=== PATIENT | female | born 1980 | race Caucasian/White ===

== ENCOUNTER 2019-06-17 21:15 | Inpatient (IN) | payer OTHER, MEDICAID ==
[~2019-06-17] VITALS: Ht 162.6 cm; Wt 72.8 kg
[~2019-06-17 21:15] MED LIST: PANT20TA3 PO; PARO40TA61 PO; SPIR25TA5 PO; ZOLP-413 PO
--- NOTE | 2019-06-17 21:34 | NUR ---
Patient transferred from [facility] with abnormal labs. Patient went to [facility] today c/o N/V, body aches x3 days and stated she has been attempting ETOH cessation on her own. In [facility] [facility], patient was hyponatremic, hypokalemic, hypomag. Meds given at that facility to address issue. No seizure activity noted at [facility] or here. 5 lead unremarkable.
[2019-06-17 22:05] LABS: BASOPHILS # (AUTO) 0.03 x10^3/uL (0-0.1); BASOPHILS % (AUTO) 0 % (0-1); EOSINOPHILS # (AUTO) 0.18 x10^3/uL (0-0.4); EOSINOPHILS % (AUTO) 2 % (1-7); LYMPHOCYTES # (AUTO) 2.19 x10^3/uL (1-3.4); LYMPHOCYTES % (AUTO) 18 % (22-44); MD NO; MEAN CORPUSCULAR HEMOGLOBIN 35.8 pg (27.0-34.8); MEAN CORPUSCULAR HGB CONC 34.1 g/dL (32.4-35.8); MEAN CORPUSCULAR VOLUME 105.1 fL (80-100); MEAN PLATELET VOLUME 7.6 fL (7.4-10.4); MONOCYTES # (AUTO) 0.73 x10^3/uL (0.2-0.8); MONOCYTES % (AUTO) 6 % (2-9); NEUTROPHILS # (AUTO) 9.11 x10^3/uL (1.8-6.8); NEUTROPHILS % (AUTO) 74 % (42-75); PLATELET COUNT 309 x10^3/uL (130-400); RED BLOOD COUNT 3.47 x10^6/uL (3.82-5.3); RED CELL DISTRIBUTION WIDTH 11.8 % (9.6-15.2)
[2019-06-17 22:16] LABS: ALBUMIN 1.8 g/dL (3.4-5.0); ANION GAP 11 mmol/L (5-15); CALCIUM 6.3 mg/dL (8.5-10.1); CHLORIDE 69 mmol/L (98-107); CREATININE 0.55 mg/dL (0.55-1.02)
--- NOTE | 2019-06-17 22:42 | NUR ---
Consulted with ERP about potential of IV replacement; awaiting orders.
[2019-06-17] MEDS ORDERED: MAGNESIUM SULFATE PMX 2GM/50ML 50 ML ONE (22:47)
--- NOTE | 2019-06-17 22:52 | NUR ---
Per hospitalist to non-admin 2 ml push of 1 g mag and 40 meq of k per erp orders and to admin iv replacement.
[2019-06-17] MEDS ORDERED: MAGNESIUM SULFATE 1 GM/2 ML IVPush ONE (23:00)
[2019-06-17] MEDS ORDERED: morphine SULFATE 10 MG/ML, 1ML IVPush PRN (23:00)
[2019-06-17] MEDS ORDERED: ONDANSETRON ODT 4 MG PO PRN (23:00)
[2019-06-17] MEDS ORDERED: POTASSIUM CHLORIDE 40 MEQ in SODIUM CHLORIDE 0.9% 500 ML IV ONE (23:00)
[2019-06-17] MEDS ORDERED: POLYETHYLENE GLYCOL 17 GM PACKET PO PRN (23:00)
[2019-06-17] MEDS ORDERED: PANTOPRAZOLE 40 MG IV IVPush SCH (23:00)
[2019-06-17] MEDS ORDERED: hydrALAzine 20 MG/ML, 1ML IVPush PRN (23:00)
[2019-06-17] MEDS ORDERED: MAGNESIUM SULFATE PMX 2GM/50ML 50 ML IV ONE (23:00)
[2019-06-17] MEDS ORDERED: POTASSIUM CHLORIDE 20 MEQ TAB.ER.PRT PO ONE (23:00)
[2019-06-17] MEDS ORDERED: CALCIUM GLUCONATE 4.6 MEQ in SODIUM CHLORIDE 0.9% 50 ML IV ONE (23:00)
[2019-06-17] MEDS ORDERED: BISACODYL 10 MG SUPP PR PRN (23:00)
[2019-06-17] MEDS ORDERED: DOCUSATE 100 MG CAPSULE PO PRN (23:00)
[2019-06-17] MEDS ORDERED: PROMETHAZINE 25 MG/ML, 1ML IM PRN (23:00)
--- NOTE | 2019-06-17 23:18 | NUR ---
[facility] [place] [facility] [phone]
--- NOTE | 2019-06-17 23:31 | NUR ---
Patient's called for an update. Patient stated RN can release info to Clement regarding her care. Advised him that patient had abnormal lab values and would be monitored overnight in CCU.
--- NOTE | 2019-06-17 23:35 | NUR ---
Pt states she is starting to feel some cramping in her lower back and "a funny feeling in her chest." Hospitalist notified.
[2019-06-17] MEDS: SODIUM CHLORIDE 0.9% 1,000 ML IV SCH (23:40)
--- NOTE | 2019-06-17 23:42 | NUR ---
Repeat ekg accomplished for physical s/s presentation. Given to hospitalist.
[2019-06-17 23:59] LABS: FREE T4 (FREE THYROXINE) 1.24 ng/dL (0.76-1.46)
[2019-06-18] MEDS ORDERED: LORazepam 0.5MG TABLET PO PRN
[2019-06-18] MEDS ORDERED: LORazepam 1MG TABLET PO PRN ×4
[2019-06-18] MEDS ORDERED: PANTOPRAZOLE 40 MG IV ONE
[2019-06-18] MEDS ORDERED: LORazepam 2 MG/ML, 1ML IV PRN ×5
--- NOTE | 2019-06-18 00:05 | NUR ---
PT MEDICATED PER MAR. PT DOES NOT AROUSE TO VERBAL STIMULI. HOWEVER NO SIGNS OF DISTRESS NOTES AT THIS TIME. AWAITING ADMIT BED IN CCU
[2019-06-18] MEDS ORDERED: [UNRECOGNIZED DRUG - OTHER] (00:17)
[2019-06-18] MEDS ORDERED: PROPANOLOL (00:17)
[2019-06-18] MEDS ORDERED: GABA300C10 PO (00:17)
[2019-06-18] MEDS ORDERED: ONDA4TAB7 PO (00:17)
[2019-06-18] MEDS ORDERED: VITAMIN D (00:17)
[2019-06-18] MEDS ORDERED: VITAMIN B (00:17)
--- NOTE | 2019-06-18 00:18 | NUR ---
PT AWOKEN. MED REC COMPLETED TO BEST OF PATIENTS KNOWLEDGE. PT MOSTL FOLLOWS DIRECTION HOWEVER NEEDS FREQUENT REMINDERS TO NOT BEND HER RIGHT ARM WHICH HAS BEEN CAUSING THE IV PUMP TO ALERT
[2019-06-18 00:33] LABS: INTERNATIONAL NORMALIZED RATIO 1.31 (0.93-1.1); PROTHROMBIN TIME 13.6 Seconds (9.6-11.5)
[2019-06-18 01:31] LABS: CHLORIDE 71 mmol/L (98-107)
[2019-06-18 01:32] LABS: ALANINE AMINOTRANSFERASE 50 U/L (12-78); ANION GAP 12 mmol/L (5-15); BILIRUBIN, DIRECT 0.8 mg/dL (0.1-0.2); CALCIUM 6.7 mg/dL (8.5-10.1); CREATININE 0.51 mg/dL (0.55-1.02)
[2019-06-18 01:34] LABS: ALKALINE PHOSPHATASE 152 U/L (45-117); BILIRUBIN,INDIRECT 0.5 mg/dL (0.0-2.0); BILIRUBIN,TOTAL 1.3 mg/dL (0.2-1.0); TOTAL PROTEIN 5.5 g/dL (6.4-8.2)
[2019-06-18] MEDS: NICOTINE 7 MG/24 HR PATCH.TD24 TD SCH ×2 (01:52→22:27)
[2019-06-18] MEDS: ONDANSETRON 2MG/ML, 2ML IVPush PRN (02:02)
[2019-06-18 03:39] LABS: OSMOLALITY,URINE 77 mOsm/kg (500-850)
[2019-06-18 03:41] LABS: SODIUM,URINE RANDOM 9 mmol/L
[2019-06-18 04:01] VITALS: BP 102/66
[2019-06-18 05:07] LABS: BASOPHILS # (AUTO) 0.08 x10^3/uL (0-0.1); BASOPHILS % (AUTO) 1 % (0-1); EOSINOPHILS # (AUTO) 0.37 x10^3/uL (0-0.4); EOSINOPHILS % (AUTO) 4 % (1-7); LYMPHOCYTES # (AUTO) 2.85 x10^3/uL (1-3.4); LYMPHOCYTES % (AUTO) 28 % (22-44); MD NO; MEAN CORPUSCULAR HEMOGLOBIN 35.7 pg (27.0-34.8); MEAN PLATELET VOLUME 7.5 fL (7.4-10.4); MONOCYTES % (AUTO) 8 % (2-9); NEUTROPHILS # (AUTO) 6.24 x10^3/uL (1.8-6.8); NEUTROPHILS % (AUTO) 60 % (42-75); PLATELET COUNT 301 x10^3/uL (130-400); RED BLOOD COUNT 3.69 x10^6/uL (3.82-5.3)
[2019-06-18 05:20] LABS: ALBUMIN 2.2 g/dL (3.4-5.0); CALCIUM 6.7 mg/dL (8.5-10.1); CHLORIDE 71 mmol/L (98-107)
[2019-06-18 05:24] LABS: ALANINE AMINOTRANSFERASE 56 U/L (12-78); ALKALINE PHOSPHATASE 160 U/L (45-117); BILIRUBIN,TOTAL 1.3 mg/dL (0.2-1.0); CHOL/HDL RATIO 14.6; CHOLESTEROL, TOTAL 205 mg/dL (140-239); CREATININE 0.48 mg/dL (0.55-1.02); HDL CHOL % 7 % (28-40); HDL CHOLESTEROL (DIRECT) 14 mg/dL (40-60); TOTAL PROTEIN 5.3 g/dL (6.4-8.2); TRIGLYCERIDES 434 mg/dL (50-200)
[2019-06-18 05:29] LABS: ANION GAP 13 mmol/L (5-15)
[2019-06-18] MEDS: POTASSIUM CHLORIDE 20 MEQ, MAGNESIUM SULFATE 1 GM, THIAMINE 200 MG, FOLIC ACID 1 MG, MV... IV SCH (07:24)
[2019-06-18] MEDS: SODIUM CHLORIDE 0.9% 1,000 ML IV SCH ×2 (08:47→18:47)
[2019-06-18] MEDS ORDERED: THIAMINE 100MG TABLET PO SCH (09:00)
[2019-06-18] MEDS ORDERED: MULTIVITAMIN 1 TABLET PO SCH (09:00)
[2019-06-18] MEDS ORDERED: CHLORDIAZEPOXIDE 25 MG CAPSULE PO SCH (09:00)
[2019-06-18] MEDS ORDERED: POTASSIUM CHLORIDE 10% 40 MEQ/30 ML UDC PO SCH (09:00)
[2019-06-18] MEDS ORDERED: FOLIC ACID 1 MG TABLET PO SCH (09:00)
[2019-06-18 09:48] LABS: ANION GAP 13 mmol/L (5-15); CALCIUM 6.4 mg/dL (8.5-10.1); CHLORIDE 73 mmol/L (98-107); CREATININE 0.52 mg/dL (0.55-1.02)
[2019-06-18] MEDS ORDERED: MAGNESIUM SULFATE PMX 4GM/100M 100 ML IV ONE (10:30)
[2019-06-18] MEDS ORDERED: CALCIUM CHLORIDE 13.6 MEQ in SODIUM CHLORIDE 0.9% 100 ML IV ONE (10:30)
[2019-06-18] MEDS: CHLORDIAZEPOXIDE 10 MG CAPSULE PO SCH ×3 (11:51→22:25)
[2019-06-18] MEDS: POTASSIUM CHLORIDE 10% 40 MEQ/30 ML UDC PO SCH ×3 (11:52→22:25)
[2019-06-18] MEDS: CHLORDIAZEPOXIDE 5 MG CAPSULE PO SCH ×3 (11:52→22:25)
[2019-06-18] MEDS: SODIUM PHOSPHATE 40 MMOL in SODIUM CHLORIDE 0.9% 500 ML IV ONE ×2 (11:52→13:54)
[2019-06-18 13:18] LABS: ANION GAP 12 mmol/L (5-15); CALCIUM 6.5 mg/dL (8.5-10.1); CHLORIDE 77 mmol/L (98-107); CREATININE 0.53 mg/dL (0.55-1.02)
[2019-06-18] MEDS ORDERED: POTASSIUM CHLORIDE 20 MEQ TAB.ER.PRT ONE ×2 (17:01→22:24)
[2019-06-18] MEDS: NS + 20MEQ KCL 1,000 ML IV SCH (17:03)
[2019-06-18] MEDS: PANTOPRAZOLE 20MG TABLET PO SCH (17:06)
[2019-06-18 17:38] LABS: ANION GAP 10 mmol/L (5-15); CALCIUM 7.5 mg/dL (8.5-10.1); CHLORIDE 78 mmol/L (98-107)
[2019-06-18 17:39] LABS: CREATININE 0.45 mg/dL (0.55-1.02)
[2019-06-18] MEDS ORDERED: POTASSIUM CHLORIDE 40 MEQ in SODIUM CHLORIDE 0.9% 500 ML IV ONE (19:30)
[2019-06-18 22:33] LABS: ANION GAP 9 mmol/L (5-15); CALCIUM 6.8 mg/dL (8.5-10.1); CHLORIDE 83 mmol/L (98-107); CREATININE 0.52 mg/dL (0.55-1.02)
[2019-06-19] MEDS: OXYcodone IR 5MG TABLET PO PRN (00:33)
[2019-06-19] MEDS: NS + 20MEQ KCL 1,000 ML IV SCH (00:34)
[2019-06-19 02:31] LABS: CALCIUM 6.6 mg/dL (8.5-10.1); CHLORIDE 85 mmol/L (98-107); CREATININE 0.48 mg/dL (0.55-1.02)
[2019-06-19 02:37] LABS: ANION GAP 13 mmol/L (5-15)
[2019-06-19] MEDS: POTASSIUM CHLORIDE 10% 40 MEQ/30 ML UDC PO SCH (05:28)
[2019-06-19] MEDS: PANTOPRAZOLE 20MG TABLET PO SCH ×2 (05:28→17:38)
[2019-06-19 07:56] LABS: ALANINE AMINOTRANSFERASE 50 U/L (12-78); ALBUMIN 1.9 g/dL (3.4-5.0); CALCIUM 6.6 mg/dL (8.5-10.1); CHLORIDE 89 mmol/L (98-107); CREATININE 0.51 mg/dL (0.55-1.02)
[2019-06-19 07:58] LABS: ALKALINE PHOSPHATASE 140 U/L (45-117); BILIRUBIN,TOTAL 1.2 mg/dL (0.2-1.0)
[2019-06-19 08:05] LABS: ANION GAP 11 mmol/L (5-15)
[2019-06-19] MEDS: CHLORDIAZEPOXIDE 10 MG CAPSULE PO SCH ×3 (08:19→21:16)
[2019-06-19] MEDS: CHLORDIAZEPOXIDE 5 MG CAPSULE PO SCH ×3 (08:19→21:16)
[2019-06-19] MEDS: POTASSIUM CHLORIDE 20 MEQ, MAGNESIUM SULFATE 1 GM, THIAMINE 200 MG, FOLIC ACID 1 MG, MV... IV SCH (09:17)
[2019-06-19] MEDS: SODIUM CHLORIDE 0.9% 1,000 ML IV SCH ×2 (09:30→20:52)
[2019-06-19] MEDS ORDERED: SODIUM PHOSPHATE 40 MMOL in SODIUM CHLORIDE 0.9% 500 ML IV ONE (09:30)
[2019-06-19] MEDS ORDERED: CALCIUM CHLORIDE 13.6 MEQ in SODIUM CHLORIDE 0.9% 100 ML IV ONE (09:30)
[2019-06-19] MEDS: PAROXETINE 20 MG TABLET PO SCH (11:40)
[2019-06-19] MEDS: GABAPENTIN 100 MG CAPSULE PO SCH ×2 (11:40→21:16)
[2019-06-19 13:12] LABS: ANION GAP 12 mmol/L (5-15); CALCIUM 7.6 mg/dL (8.5-10.1); CHLORIDE 88 mmol/L (98-107); CREATININE 0.67 mg/dL (0.55-1.02)
[2019-06-19] MEDS ORDERED: LOPERAMIDE 2 MG CAPSULE PO PRN (14:00)
[2019-06-19] MEDS: ENOXAPARIN 40 MG/0.4 ML SQ SCH (15:15)
[2019-06-19] MEDS: CALCIUM CARBONATE 500 MG TAB.CHEW PO PRN (15:15)
[2019-06-19 21:06] LABS: ANION GAP 12 mmol/L (5-15); CALCIUM 7.3 mg/dL (8.5-10.1); CHLORIDE 91 mmol/L (98-107); CREATININE 0.61 mg/dL (0.55-1.02)
[2019-06-19] MEDS: NICOTINE 7 MG/24 HR PATCH.TD24 TD SCH (23:20)
[2019-06-20 05:00] LABS: ANION GAP 10 mmol/L (5-15); CALCIUM 7.2 mg/dL (8.5-10.1); CHLORIDE 94 mmol/L (98-107); CREATININE 0.51 mg/dL (0.55-1.02)
[2019-06-20] MEDS: PANTOPRAZOLE 20MG TABLET PO SCH ×2 (06:13→17:28)
[2019-06-20] MEDS ORDERED: MAGNESIUM SULFATE PMX 2GM/50ML 50 ML IV ONE (07:30)
[2019-06-20] MEDS ORDERED: SODIUM CHLORIDE 3% 500 ML IV PRN ×2 (07:30→09:00)
[2019-06-20] MEDS: CHLORDIAZEPOXIDE 5 MG CAPSULE PO SCH ×3 (08:32→22:18)
[2019-06-20] MEDS: POTASSIUM CHLORIDE 20 MEQ TAB.ER.PRT PO SCH ×2 (08:33→17:28)
[2019-06-20] MEDS: PAROXETINE 20 MG TABLET PO SCH (08:33)
[2019-06-20] MEDS: GABAPENTIN 100 MG CAPSULE PO SCH ×2 (08:33→19:59)
[2019-06-20] MEDS: CHLORDIAZEPOXIDE 10 MG CAPSULE PO SCH ×3 (08:42→22:18)
[2019-06-20] MEDS: POTASSIUM CHLORIDE 20 MEQ, MAGNESIUM SULFATE 1 GM, THIAMINE 200 MG, FOLIC ACID 1 MG, MV... IV SCH (11:28)
[2019-06-20] MEDS: ENOXAPARIN 40 MG/0.4 ML SQ SCH (13:32)
[2019-06-20] MEDS: OXYcodone IR 5MG TABLET PO PRN (17:28)
[2019-06-20 18:27] VITALS: BP 112/72
[2019-06-20] MEDS: SODIUM CHLORIDE 3% 500 ML IV PRN (22:23)
[2019-06-20] MEDS: NICOTINE 7 MG/24 HR PATCH.TD24 TD SCH (22:24)
[2019-06-21 02:16] VITALS: BP 102/67
[2019-06-21 03:34] LABS: ANION GAP 13 mmol/L (5-15); CALCIUM 6.3 mg/dL (8.5-10.1); CHLORIDE 98 mmol/L (98-107); CREATININE 0.76 mg/dL (0.55-1.02)
[2019-06-21] MEDS: PANTOPRAZOLE 20MG TABLET PO SCH ×2 (05:52→16:34)
[2019-06-21 06:08] VITALS: BP 99/67
[2019-06-21] MEDS: SODIUM CHLORIDE 3% 500 ML IV PRN ×2 (07:17→17:21)
[2019-06-21] MEDS ORDERED: CALCIUM CHLORIDE 13.6 MEQ in SODIUM CHLORIDE 0.9% 100 ML IV ONE (07:30)
[2019-06-21] MEDS: GABAPENTIN 100 MG CAPSULE PO SCH ×2 (07:59→21:29)
[2019-06-21] MEDS: PAROXETINE 20 MG TABLET PO SCH (07:59)
[2019-06-21 08:35] LABS: MD YES; MEAN CORPUSCULAR HEMOGLOBIN 35.5 pg (27.0-34.8); MEAN CORPUSCULAR HGB CONC 33.1 g/dL (32.4-35.8); MEAN CORPUSCULAR VOLUME 107.2 fL (80-100); MEAN PLATELET VOLUME 8.2 fL (7.4-10.4); PLATELET COUNT 314 x10^3/uL (130-400); RED BLOOD COUNT 3.21 x10^6/uL (3.82-5.3); RED CELL DISTRIBUTION WIDTH 12.8 % (9.6-15.2)
[2019-06-21] MEDS ORDERED: CHLORDIAZEPOXIDE 5 MG CAPSULE PO SCH (09:00)
[2019-06-21 09:02] LABS: <PLATELET ESTIMATE> ADEQUATE; <PLT MORPHOLOGY> NORMAL PLT MORPH; ANISOCYTOSIS 1+; EOS#(MANUAL) 0.97 x10^3/uL (0.0-0.4); EOS% (MANUAL) 6 % (1-7); LYMPH#(MANUAL) 3.89 x10^3/uL (1-3.4); LYMPHS% (MANUAL) 24 % (22-44); MONOS#(MANUAL) 0.81 x10^3/uL (0.3-2.7); MONOS% (MANUAL) 5 % (2-9); SEG#(MANUAL) 10.53 x10^3/uL (1.8-6.8); SEGS% (MANUAL) 65 % (42-75)
[2019-06-21] MEDS: POTASSIUM CHLORIDE 20 MEQ, MAGNESIUM SULFATE 1 GM, THIAMINE 200 MG, FOLIC ACID 1 MG, MV... IV SCH (09:23)
[2019-06-21] MEDS ORDERED: MAGNESIUM SULFATE PMX 4GM/100M 100 ML IVPB ONE (11:00)
[2019-06-21] MEDS ORDERED: SODIUM PHOSPHATE 20 MMOL in SODIUM CHLORIDE 0.9% 500 ML IV ONE (11:00)
[2019-06-21] MEDS: OXYcodone IR 5MG TABLET PO PRN (12:13)
[2019-06-21 13:46] VITALS: BP 107/64
[2019-06-21] MEDS: ENOXAPARIN 40 MG/0.4 ML SQ SCH (16:35)
[2019-06-21 19:59] VITALS: BP 104/80
[2019-06-21] MEDS: NICOTINE 7 MG/24 HR PATCH.TD24 TD SCH (23:15)
[2019-06-22 00:04] LABS: CULTURE INDICATED? YES; MICROSCOPIC INDICATED
[2019-06-22 01:56] VITALS: BP 108/71
[2019-06-22] MEDS: SODIUM CHLORIDE 3% 500 ML IV PRN (03:12)
[2019-06-22 04:58] LABS: MEAN CORPUSCULAR HEMOGLOBIN 36.2 pg (27.0-34.8); MEAN CORPUSCULAR HGB CONC 33.5 g/dL (32.4-35.8); MEAN CORPUSCULAR VOLUME 108.1 fL (80-100); MEAN PLATELET VOLUME 7.7 fL (7.4-10.4); PLATELET COUNT 313 x10^3/uL (130-400); RED CELL DISTRIBUTION WIDTH 13.1 % (9.6-15.2)
[2019-06-22 05:10] LABS: ANION GAP 7 mmol/L (5-15); CALCIUM 6.5 mg/dL (8.5-10.1); CHLORIDE 106 mmol/L (98-107); CREATININE 0.39 mg/dL (0.55-1.02)
[2019-06-22 05:47] LABS: BASOPHILS # (AUTO) 0.13 x10^3/uL (0-0.1); BASOPHILS % (AUTO) 1 % (0-1); EOSINOPHILS # (AUTO) 0.56 x10^3/uL (0-0.4); EOSINOPHILS % (AUTO) 4 % (1-7); LYMPHOCYTES # (AUTO) 2.65 x10^3/uL (1-3.4); LYMPHOCYTES % (AUTO) 19 % (22-44); MD SCAN; MONOCYTES # (AUTO) 0.71 x10^3/uL (0.2-0.8); MONOCYTES % (AUTO) 5 % (2-9); NEUTROPHILS # (AUTO) 10.16 x10^3/uL (1.8-6.8); NEUTROPHILS % (AUTO) 72 % (42-75)
[2019-06-22] MEDS: PANTOPRAZOLE 20MG TABLET PO SCH ×2 (05:51→17:13)
[2019-06-22 06:53] VITALS: BP 107/72
[2019-06-22] MEDS ORDERED: CEFTRIAXONE PMX 1GM/50ML 50 ML IV SCH (07:30)
[2019-06-22] MEDS: PAROXETINE 20 MG TABLET PO SCH (08:42)
[2019-06-22] MEDS: GABAPENTIN 100 MG CAPSULE PO SCH ×2 (08:42→22:51)
[2019-06-22] MEDS: OXYcodone IR 5MG TABLET PO PRN ×4 (08:46→21:11)
[2019-06-22] MEDS ORDERED: SODIUM CHLORIDE 3% 500 ML IV PRN ×2 (09:00→19:00)
[2019-06-22] MEDS: POTASSIUM CHLORIDE 20 MEQ, MAGNESIUM SULFATE 1 GM, THIAMINE 200 MG, FOLIC ACID 1 MG, MV... IV SCH (09:48)
[2019-06-22 13:14] VITALS: BP 137/81
[2019-06-22] MEDS: ENOXAPARIN 40 MG/0.4 ML SQ SCH (17:22)
[2019-06-22 19:06] VITALS: BP 120/73
[2019-06-22] MEDS: ONDANSETRON 2MG/ML, 2ML IVPush PRN (19:14)
[2019-06-22] MEDS ORDERED: ALBUTEROL/IPRATROPIUM 2.5MG/0.5MG, 3 ML ONE (21:02)
[2019-06-22] MEDS ORDERED: FUROSEMIDE 40 MG/4 ML ONE (21:46)
[2019-06-22] MEDS ORDERED: FUROSEMIDE 40 MG/4 ML IV ONE (22:00)
[2019-06-22] MEDS: LORazepam 2 MG/ML, 1ML IVPush PRN (22:51)
[2019-06-22] MEDS: NICOTINE 7 MG/24 HR PATCH.TD24 TD SCH (23:25)
[2019-06-23] MEDS: LORazepam 2 MG/ML, 1ML IVPush PRN (02:07)
[2019-06-23 05:05] LABS: ANION GAP 9 mmol/L (5-15); CALCIUM 6.5 mg/dL (8.5-10.1); CHLORIDE 105 mmol/L (98-107)
[2019-06-23 05:06] LABS: CREATININE 0.49 mg/dL (0.55-1.02)
[2019-06-23 05:19] LABS: MEAN CORPUSCULAR HEMOGLOBIN 36.7 pg (27.0-34.8); MEAN CORPUSCULAR HGB CONC 33.5 g/dL (32.4-35.8); MEAN CORPUSCULAR VOLUME 109.7 fL (80-100); MEAN PLATELET VOLUME 7.6 fL (7.4-10.4); PLATELET COUNT 322 x10^3/uL (130-400); RED BLOOD COUNT 2.89 x10^6/uL (3.82-5.3); RED CELL DISTRIBUTION WIDTH 13.7 % (9.6-15.2)
[2019-06-23] MEDS: PANTOPRAZOLE 20MG TABLET PO SCH ×2 (05:42→16:01)
[2019-06-23 05:52] LABS: BASOPHILS # (AUTO) 0.03 x10^3/uL (0-0.1); BASOPHILS % (AUTO) 0 % (0-1); EOSINOPHILS # (AUTO) 0.13 x10^3/uL (0-0.4); EOSINOPHILS % (AUTO) 1 % (1-7); LYMPHOCYTES # (AUTO) 1.62 x10^3/uL (1-3.4); LYMPHOCYTES % (AUTO) 9 % (22-44); MD SCAN; MONOCYTES # (AUTO) 0.31 x10^3/uL (0.2-0.8); MONOCYTES % (AUTO) 2 % (2-9); NEUTROPHILS # (AUTO) 15.48 x10^3/uL (1.8-6.8); NEUTROPHILS % (AUTO) 88 % (42-75)
[2019-06-23] MEDS ORDERED: VANCOMYCIN PER PHARMACY MC PRN (07:00)
[2019-06-23] MEDS: PAROXETINE 20 MG TABLET PO SCH (07:39)
[2019-06-23] MEDS: GABAPENTIN 100 MG CAPSULE PO SCH ×2 (07:39→21:13)
[2019-06-23] MEDS: MEROPENEM 1 GM in SODIUM CHLORIDE 0.9% 100 ML IV SCH ×3 (07:40→23:15)
[2019-06-23] MEDS ORDERED: VANCOMYCIN 2,000 MG in SODIUM CHLORIDE 0.9% 500 ML IV ONE (08:00)
[2019-06-23] MEDS: FUROSEMIDE 20 MG/2 ML IV SCH ×2 (08:56→21:13)
[2019-06-23] MEDS: OXYcodone IR 5MG TABLET PO PRN (12:49)
[2019-06-23] MEDS ORDERED: FUROSEMIDE 40 MG/4 ML IV ONE (14:30)
[2019-06-23 15:41] LABS: TROPONIN I 0.063 ng/mL (0.000-0.045)
[2019-06-23] MEDS ORDERED: SODIUM BICARBONATE 1 MEQ/ML, 50ML VIAL IVPush STA (15:49)
[2019-06-23] MEDS: ENOXAPARIN 40 MG/0.4 ML SQ SCH (20:02)
[2019-06-23] MEDS: VANCOMYCIN 2,300 MG in SODIUM CHLORIDE 0.9% 500 ML IV SCH (21:13)
[2019-06-23] MEDS: NICOTINE 7 MG/24 HR PATCH.TD24 TD SCH (23:15)
[2019-06-24 04:38] LABS: MEAN CORPUSCULAR HGB CONC 33.5 g/dL (32.4-35.8); MEAN CORPUSCULAR VOLUME 107.3 fL (80-100); MEAN PLATELET VOLUME 7.2 fL (7.4-10.4); PLATELET COUNT 334 x10^3/uL (130-400); RED BLOOD COUNT 2.83 x10^6/uL (3.82-5.3); RED CELL DISTRIBUTION WIDTH 13.9 % (9.6-15.2)
[2019-06-24 04:42] LABS: ANION GAP 7 mmol/L (5-15); CALCIUM 7.2 mg/dL (8.5-10.1); CHLORIDE 104 mmol/L (98-107)
[2019-06-24 05:38] LABS: MD YES
[2019-06-24 05:45] LABS: ANISOCYTOSIS 1+; BAND#(MANUAL) 0.65 x10^3/uL; BANDS%(MANUAL) 5 % (0-7); LYMPHS% (MANUAL) 10 % (22-44); MONOS#(MANUAL) 0.65 x10^3/uL (0.3-2.7); MONOS% (MANUAL) 5 % (2-9); NRBC % (MANUAL) 1 % (0-1); POLYCHROMASIA 1+; SEGS% (MANUAL) 80 % (42-75)
[2019-06-24 05:46] LABS: <PLATELET ESTIMATE> ADEQUATE; <PLT MORPHOLOGY> NORMAL PLT MORPH
[2019-06-24] MEDS: PANTOPRAZOLE 20MG TABLET PO SCH ×2 (05:58→16:00)
[2019-06-24] MEDS: MEROPENEM 1 GM in SODIUM CHLORIDE 0.9% 100 ML IV SCH ×3 (06:30→23:23)
[2019-06-24] MEDS: POTASSIUM CHLORIDE 20 MEQ TAB.ER.PRT PO SCH ×2 (07:51→16:14)
[2019-06-24] MEDS: FUROSEMIDE 20 MG/2 ML IV SCH ×2 (07:52→16:45)
[2019-06-24] MEDS: GABAPENTIN 100 MG CAPSULE PO SCH ×2 (07:52→22:09)
[2019-06-24] MEDS: PAROXETINE 20 MG TABLET PO SCH (07:52)
[2019-06-24] MEDS ORDERED: PROPOFOL 100 ML IV ONE (08:00)
[2019-06-24] MEDS ORDERED: ROCURONIUM 10 MG/ML,10ML ONE (08:00)
[2019-06-24] MEDS ORDERED: ETOMIDATE 20 MG/10 ML ONE (08:00)
[2019-06-24] MEDS: ALBUMIN HUMAN 25% 100 ML IV SCH ×2 (09:29→16:45)
[2019-06-24] MEDS ORDERED: NOREPINEPHRINE 1 MG/ML, 4ML ONE (12:04)
[2019-06-24] MEDS ORDERED: FENTANYL PF 100 MCG/2ML ONE (12:09)
[2019-06-24] MEDS ORDERED: GLUCAGON 1 MG IM PRN (12:30)
[2019-06-24] MEDS ORDERED: DEXTROSE 4 GM TAB.CHEW PO PRN (12:30)
[2019-06-24] MEDS ORDERED: LACTULOSE 20 GM/30 ML UDC NG PRN (12:30)
[2019-06-24] MEDS ORDERED: SODIUM CHLORIDE 0.9%, 500ML IV ONE (12:30)
[2019-06-24] MEDS ORDERED: BISACODYL 10 MG SUPP PR PRN (12:30)
[2019-06-24] MEDS ORDERED: PHARMACY MAY ADJ FOR RENAL FX MC SCH (12:30)
[2019-06-24] MEDS ORDERED: NOREPINEPHRINE 4 MG in SODIUM CHLORIDE 0.9% 246 ML IV PRN (12:30)
[2019-06-24] MEDS ORDERED: SENNA/DOCUSATE TABLET NG PRN (12:30)
[2019-06-24] MEDS ORDERED: DEXTROSE 50%, 50ML SYRINGE IVPush PRN (12:30)
[2019-06-24] MEDS: PROPOFOL 100 ML IV PRN ×4 (12:46→22:12)
[2019-06-24] MEDS ORDERED: FENTANYL PF 100 MCG/2ML IVPush ONE (13:00)
[2019-06-24 13:18] LABS: INTERNATIONAL NORMALIZED RATIO 1.09 (0.93-1.1); PROTHROMBIN TIME 11.4 Seconds (9.6-11.5)
[2019-06-24 13:22] LABS: TROPONIN I < 0.015 ng/mL (0.000-0.045)
[2019-06-24] MEDS: ALBUTEROL/IPRATROPIUM 2.5MG/0.5MG, 3 ML INLINE SCH ×3 (14:10→22:25)
[2019-06-24] MEDS: FENTANYL PF 100 MCG/2ML IVPush PRN ×3 (15:01→22:16)
[2019-06-24] MEDS: VANCOMYCIN 2,300 MG in SODIUM CHLORIDE 0.9% 500 ML IV SCH (16:15)
[2019-06-24] MEDS: INSULIN LISPRO 100 UNITS/ML, PEN SQ-INSULIN SCH ×2 (16:20→22:10)
[2019-06-24] MEDS: ENOXAPARIN 40 MG/0.4 ML SQ SCH (20:32)
[2019-06-24] MEDS ORDERED: POTASSIUM CHLORIDE 10% 40 MEQ/30 ML UDC PO SCH (21:00)
[2019-06-24] MEDS ORDERED: POTASSIUM CHLORIDE 20 MEQ PACKET PO SCH (21:00)
[2019-06-24] MEDS: MIDAZOLAM 1 MG/ML, 2ML IVPush PRN (21:30)
[2019-06-24 21:53] LABS: TROPONIN I < 0.015 ng/mL (0.000-0.045)
[2019-06-24] MEDS: NICOTINE 7 MG/24 HR PATCH.TD24 TD SCH (22:10)
[2019-06-24] MEDS: SODIUM CHLORIDE FLUSH 10ML SYR IVF SCH (22:10)
[2019-06-25] MEDS: PROPOFOL 100 ML IV PRN ×6 (01:32→19:55)
[2019-06-25] MEDS: ALBUMIN HUMAN 25% 100 ML IV SCH ×3 (01:32→17:23)
[2019-06-25] MEDS: FUROSEMIDE 20 MG/2 ML IV SCH ×3 (01:33→18:19)
[2019-06-25] MEDS: ALBUTEROL/IPRATROPIUM 2.5MG/0.5MG, 3 ML INLINE SCH ×6 (02:37→22:29)
[2019-06-25 04:51] LABS: ALBUMIN 2.5 g/dL (3.4-5.0); ANION GAP 10 mmol/L (5-15); CALCIUM 7.4 mg/dL (8.5-10.1); CHLORIDE 104 mmol/L (98-107)
[2019-06-25 04:55] LABS: ALANINE AMINOTRANSFERASE 27 U/L (12-78); ALKALINE PHOSPHATASE 130 U/L (45-117); CREATININE 0.37 mg/dL (0.55-1.02); TOTAL PROTEIN 5.4 g/dL (6.4-8.2)
[2019-06-25] MEDS ORDERED: MAGNESIUM SULFATE PMX 2GM/50ML 50 ML IV ONE ×2 (05:30→09:00)
[2019-06-25 05:46] LABS: BASOPHILS # (AUTO) 0.05 x10^3/uL (0-0.1); BASOPHILS % (AUTO) 1 % (0-1); EOSINOPHILS # (AUTO) 0.49 x10^3/uL (0-0.4); EOSINOPHILS % (AUTO) 6 % (1-7); LYMPHOCYTES # (AUTO) 2.05 x10^3/uL (1-3.4); LYMPHOCYTES % (AUTO) 25 % (22-44); MD SCAN; MEAN CORPUSCULAR HEMOGLOBIN 36.1 pg (27.0-34.8); MEAN CORPUSCULAR HGB CONC 33.3 g/dL (32.4-35.8); MEAN CORPUSCULAR VOLUME 108.3 fL (80-100); MEAN PLATELET VOLUME 7.2 fL (7.4-10.4); MONOCYTES # (AUTO) 0.31 x10^3/uL (0.2-0.8); MONOCYTES % (AUTO) 4 % (2-9); NEUTROPHILS # (AUTO) 5.23 x10^3/uL (1.8-6.8); NEUTROPHILS % (AUTO) 64 % (42-75); PLATELET COUNT 309 x10^3/uL (130-400); RED BLOOD COUNT 2.35 x10^6/uL (3.82-5.3); RED CELL DISTRIBUTION WIDTH 14.5 % (9.6-15.2)
[2019-06-25] MEDS: PANTOPRAZOLE 20MG TABLET PO SCH ×2 (05:49→15:18)
[2019-06-25] MEDS: MEROPENEM 1 GM in SODIUM CHLORIDE 0.9% 100 ML IV SCH ×2 (06:39→15:18)
[2019-06-25] MEDS: GABAPENTIN 100 MG CAPSULE PO SCH ×2 (08:51→21:00)
[2019-06-25] MEDS: PAROXETINE 20 MG TABLET PO SCH (08:51)
[2019-06-25] MEDS: SODIUM CHLORIDE FLUSH 10ML SYR IVF SCH ×2 (08:55→21:00)
[2019-06-25] MEDS: QUETIAPINE 25MG TABLET PO SCH ×2 (08:59→17:27)
[2019-06-25] MEDS: POTASSIUM CHLORIDE 20 MEQ PACKET PO SCH ×2 (09:11→21:00)
[2019-06-25] MEDS: INSULIN LISPRO 100 UNITS/ML, PEN SQ-INSULIN SCH ×3 (10:00→22:00)
[2019-06-25] MEDS: VANCOMYCIN 2,000 MG in SODIUM CHLORIDE 0.9% 500 ML IV SCH ×2 (10:32→22:15)
[2019-06-25] MEDS ORDERED: SODIUM PHOSPHATE 40 MMOL in SODIUM CHLORIDE 0.9% 500 ML IV ONE (11:00)
[2019-06-25] MEDS: ENOXAPARIN 40 MG/0.4 ML SQ SCH (20:59)
[2019-06-26] MEDS: ALBUMIN HUMAN 25% 100 ML IV SCH ×3 (00:46→16:23)
[2019-06-26] MEDS: NICOTINE 7 MG/24 HR PATCH.TD24 TD SCH (00:46)
[2019-06-26] MEDS: MEROPENEM 1 GM in SODIUM CHLORIDE 0.9% 100 ML IV SCH ×3 (00:46→16:28)
[2019-06-26] MEDS: PROPOFOL 100 ML IV PRN ×3 (00:47→17:56)
[2019-06-26] MEDS: QUETIAPINE 25MG TABLET PO SCH ×3 (00:47→16:28)
[2019-06-26] MEDS: ALBUTEROL/IPRATROPIUM 2.5MG/0.5MG, 3 ML INLINE SCH ×6 (02:20→22:23)
[2019-06-26] MEDS: FUROSEMIDE 20 MG/2 ML IV SCH ×3 (03:09→17:20)
[2019-06-26] MEDS: INSULIN LISPRO 100 UNITS/ML, PEN SQ-INSULIN SCH ×4 (04:00→22:00)
[2019-06-26 04:24] LABS: MEAN CORPUSCULAR HEMOGLOBIN 35.8 pg (27.0-34.8); MEAN CORPUSCULAR VOLUME 108.5 fL (80-100); MEAN PLATELET VOLUME 6.9 fL (7.4-10.4); PLATELET COUNT 340 x10^3/uL (130-400); RED BLOOD COUNT 2.44 x10^6/uL (3.82-5.3); RED CELL DISTRIBUTION WIDTH 14.4 % (9.6-15.2)
[2019-06-26 04:29] LABS: ANION GAP 6 mmol/L (5-15); CHLORIDE 107 mmol/L (98-107); CREATININE 0.46 mg/dL (0.55-1.02)
[2019-06-26 04:58] LABS: MD YES
[2019-06-26 05:01] LABS: BASOS#(MANUAL) 0.18 x10^3/uL (0-0.1); BASOS% (MANUAL) 2 % (0-1); EOS#(MANUAL) 0.62 x10^3/uL (0.0-0.4); EOS% (MANUAL) 7 % (1-7); LYMPH#(MANUAL) 2.82 x10^3/uL (1-3.4); LYMPHS% (MANUAL) 32 % (22-44); MONOS#(MANUAL) 0.18 x10^3/uL (0.3-2.7); MONOS% (MANUAL) 2 % (2-9); NRBC % (MANUAL) 2 % (0-1); SEG#(MANUAL) 5.02 x10^3/uL (1.8-6.8); SEGS% (MANUAL) 57 % (42-75)
[2019-06-26 05:02] LABS: <PLATELET ESTIMATE> ADEQUATE; ANISOCYTOSIS 1+; POLYCHROMASIA 1+; SMALL PLATELETS 1+
[2019-06-26] MEDS: PANTOPRAZOLE 20MG TABLET PO SCH ×2 (06:26→16:28)
[2019-06-26] MEDS: SODIUM CHLORIDE FLUSH 10ML SYR IVF SCH ×2 (08:49→20:49)
[2019-06-26] MEDS: PAROXETINE 20 MG TABLET PO SCH (08:52)
[2019-06-26] MEDS: GABAPENTIN 100 MG CAPSULE PO SCH ×2 (08:52→20:49)
[2019-06-26] MEDS: ENOXAPARIN 40 MG/0.4 ML SQ SCH (20:49)
[2019-06-27] MEDS: MEROPENEM 1 GM in SODIUM CHLORIDE 0.9% 100 ML IV SCH ×3 (00:41→16:07)
[2019-06-27] MEDS: ALBUMIN HUMAN 25% 100 ML IV SCH ×4 (00:41→16:47)
[2019-06-27] MEDS: NICOTINE 7 MG/24 HR PATCH.TD24 TD SCH (00:42)
[2019-06-27] MEDS: QUETIAPINE 25MG TABLET PO SCH ×3 (00:42→15:59)
[2019-06-27] MEDS: PROPOFOL 100 ML IV PRN ×5 (00:44→22:25)
[2019-06-27] MEDS: ALBUTEROL/IPRATROPIUM 2.5MG/0.5MG, 3 ML INLINE SCH ×6 (03:00→22:22)
[2019-06-27] MEDS: FUROSEMIDE 20 MG/2 ML IV SCH (03:45)
[2019-06-27] MEDS: INSULIN LISPRO 100 UNITS/ML, PEN SQ-INSULIN SCH ×4 (04:00→22:49)
[2019-06-27 04:29] LABS: MEAN CORPUSCULAR HEMOGLOBIN 36.3 pg (27.0-34.8); MEAN CORPUSCULAR HGB CONC 32.7 g/dL (32.4-35.8); MEAN CORPUSCULAR VOLUME 111.1 fL (80-100); MEAN PLATELET VOLUME 7.3 fL (7.4-10.4); PLATELET COUNT 368 x10^3/uL (130-400); RED CELL DISTRIBUTION WIDTH 14.7 % (9.6-15.2)
[2019-06-27 04:31] LABS: ANION GAP 8 mmol/L (5-15); CHLORIDE 105 mmol/L (98-107); CREATININE 0.41 mg/dL (0.55-1.02); TRIGLYCERIDES 165 mg/dL (50-200)
[2019-06-27 04:44] LABS: MD YES
[2019-06-27 04:46] LABS: ANISOCYTOSIS 1+; BAND#(MANUAL) 0.54 x10^3/uL; BANDS%(MANUAL) 5 % (0-7); EOS#(MANUAL) 0.64 x10^3/uL (0.0-0.4); EOS% (MANUAL) 6 % (1-7); LYMPH#(MANUAL) 2.46 x10^3/uL (1-3.4); LYMPHS% (MANUAL) 23 % (22-44); METAMYELOCYTES# (MANUAL) 0.11 x10^3/uL (0-0); METAMYELOCYTES% (MANUAL) 1 % (0-1); MONOS#(MANUAL) 0.21 x10^3/uL (0.3-2.7); MONOS% (MANUAL) 2 % (2-9); NRBC % (MANUAL) 2 % (0-1); POLYCHROMASIA 1+; SEG#(MANUAL) 6.74 x10^3/uL (1.8-6.8); SEGS% (MANUAL) 63 % (42-75)
[2019-06-27 04:47] LABS: <PLATELET ESTIMATE> ADEQUATE; <PLT MORPHOLOGY> NORMAL PLT MORPH
[2019-06-27] MEDS: PANTOPRAZOLE 20MG TABLET PO SCH ×2 (07:11→15:58)
[2019-06-27] MEDS ORDERED: MAGNESIUM SULFATE PMX 4GM/100M 100 ML IVPB ONE (08:00)
[2019-06-27] MEDS: PAROXETINE 20 MG TABLET PO SCH (08:26)
[2019-06-27] MEDS: POTASSIUM CHLORIDE 10% 40 MEQ/30 ML UDC PO SCH ×3 (08:26→20:37)
[2019-06-27] MEDS: GABAPENTIN 100 MG CAPSULE PO SCH ×2 (08:26→20:36)
[2019-06-27] MEDS: SODIUM CHLORIDE FLUSH 10ML SYR IVF SCH ×2 (08:27→20:37)
[2019-06-27] MEDS ORDERED: CATHFLO-ALTEPLASE 2 MG/2 ML CATHFLUSH ONE ×2 (09:00→14:00)
[2019-06-27] MEDS: FUROSEMIDE 40 MG/4 ML IV SCH ×2 (09:50→17:50)
[2019-06-27] MEDS: methylPREDNISolone SOD SUCC 125 MG/2 ML IVPush SCH (18:39)
[2019-06-27] MEDS: ENOXAPARIN 40 MG/0.4 ML SQ SCH (20:37)
[2019-06-28] MEDS: MEROPENEM 1 GM in SODIUM CHLORIDE 0.9% 100 ML IV SCH ×3 (00:49→16:14)
[2019-06-28] MEDS: NICOTINE 7 MG/24 HR PATCH.TD24 TD SCH (00:49)
[2019-06-28] MEDS: methylPREDNISolone SOD SUCC 125 MG/2 ML IVPush SCH ×4 (00:50→18:24)
[2019-06-28] MEDS: QUETIAPINE 25MG TABLET PO SCH ×3 (00:50→17:15)
[2019-06-28] MEDS: FUROSEMIDE 40 MG/4 ML IV SCH ×3 (00:50→18:14)
[2019-06-28] MEDS: ALBUMIN HUMAN 25% 100 ML IV SCH ×3 (00:51→17:13)
[2019-06-28] MEDS: ALBUTEROL/IPRATROPIUM 2.5MG/0.5MG, 3 ML INLINE SCH ×6 (02:26→22:03)
[2019-06-28] MEDS: PROPOFOL 100 ML IV PRN ×3 (02:38→18:40)
[2019-06-28 03:53] LABS: MEAN CORPUSCULAR HEMOGLOBIN 36.1 pg (27.0-34.8); MEAN CORPUSCULAR HGB CONC 32.2 g/dL (32.4-35.8); MEAN PLATELET VOLUME 7.3 fL (7.4-10.4); PLATELET COUNT 389 x10^3/uL (130-400); RED BLOOD COUNT 2.39 x10^6/uL (3.82-5.3); RED CELL DISTRIBUTION WIDTH 14.9 % (9.6-15.2)
[2019-06-28 04:02] LABS: ANION GAP 5 mmol/L (5-15); CALCIUM 8.7 mg/dL (8.5-10.1); CHLORIDE 105 mmol/L (98-107); CREATININE 0.51 mg/dL (0.55-1.02)
[2019-06-28 04:13] LABS: MD YES
[2019-06-28 04:18] LABS: ANISOCYTOSIS 1+; LYMPH#(MANUAL) 0.99 x10^3/uL (1-3.4); LYMPHS% (MANUAL) 10 % (22-44); METAMYELOCYTES% (MANUAL) 1 % (0-1); MYELOCYTES% (MANUAL) 2 % (0-0); NRBC % (MANUAL) 3 % (0-1); POLYCHROMASIA 1+; SEG#(MANUAL) 8.61 x10^3/uL (1.8-6.8); SEGS% (MANUAL) 87 % (42-75)
[2019-06-28 04:19] LABS: <PLATELET ESTIMATE> ADEQUATE; SMALL PLATELETS 1+
[2019-06-28] MEDS: INSULIN LISPRO 100 UNITS/ML, PEN SQ-INSULIN SCH ×4 (04:49→22:04)
[2019-06-28] MEDS: PANTOPRAZOLE 20MG TABLET PO SCH ×2 (05:47→16:14)
[2019-06-28] MEDS: POTASSIUM CHLORIDE 10% 40 MEQ/30 ML UDC PO SCH ×3 (09:00→20:24)
[2019-06-28] MEDS: SODIUM CHLORIDE FLUSH 10ML SYR IVF SCH ×2 (09:47→20:23)
[2019-06-28] MEDS: GABAPENTIN 100 MG CAPSULE PO SCH ×2 (09:47→20:24)
[2019-06-28] MEDS: PAROXETINE 20 MG TABLET PO SCH (09:47)
[2019-06-28] MEDS ORDERED: CHLOROTHIAZIDE 500 MG IV STA (17:16)
[2019-06-28] MEDS ORDERED: SODIUM CHLORIDE 0.9% IV ONE (18:00)
[2019-06-28] MEDS ORDERED: CHLOROTHIAZIDE IV ONE (18:00)
[2019-06-28 18:08] LABS: ANION GAP 5 mmol/L (5-15); CALCIUM 8.9 mg/dL (8.5-10.1); CHLORIDE 104 mmol/L (98-107); CREATININE 0.43 mg/dL (0.55-1.02)
[2019-06-28] MEDS: SENNA 176 MG/5 ML ORAL SOL NG PRN (20:24)
[2019-06-28] MEDS: ENOXAPARIN 40 MG/0.4 ML SQ SCH (20:24)
[2019-06-29] MEDS: FUROSEMIDE 40 MG/4 ML IV SCH ×3 (00:12→17:33)
[2019-06-29] MEDS: NICOTINE 7 MG/24 HR PATCH.TD24 TD SCH (00:12)
[2019-06-29] MEDS: MEROPENEM 1 GM in SODIUM CHLORIDE 0.9% 100 ML IV SCH ×3 (00:12→16:32)
[2019-06-29] MEDS: methylPREDNISolone SOD SUCC 125 MG/2 ML IVPush SCH ×4 (00:12→17:30)
[2019-06-29] MEDS: ALBUMIN HUMAN 25% 100 ML IV SCH ×3 (00:13→17:16)
[2019-06-29] MEDS: QUETIAPINE 25MG TABLET PO SCH ×3 (00:13→17:29)
[2019-06-29] MEDS: PROPOFOL 100 ML IV PRN ×5 (01:04→21:24)
[2019-06-29] MEDS: ALBUTEROL/IPRATROPIUM 2.5MG/0.5MG, 3 ML INLINE SCH ×6 (02:30→22:50)
[2019-06-29] MEDS: INSULIN LISPRO 100 UNITS/ML, PEN SQ-INSULIN SCH ×2 (04:21→21:13)
[2019-06-29 04:29] LABS: MEAN CORPUSCULAR HEMOGLOBIN 36.1 pg (27.0-34.8); MEAN CORPUSCULAR HGB CONC 32.1 g/dL (32.4-35.8); MEAN CORPUSCULAR VOLUME 112.5 fL (80-100); MEAN PLATELET VOLUME 7.5 fL (7.4-10.4); PLATELET COUNT 463 x10^3/uL (130-400); RED CELL DISTRIBUTION WIDTH 15.4 % (9.6-15.2)
[2019-06-29 04:41] LABS: ANION GAP 7 mmol/L (5-15); CALCIUM 9.2 mg/dL (8.5-10.1); CHLORIDE 101 mmol/L (98-107); CREATININE 0.49 mg/dL (0.55-1.02)
[2019-06-29 04:59] LABS: MD YES
[2019-06-29 05:03] LABS: ANISOCYTOSIS 1+; BAND#(MANUAL) 0.11 x10^3/uL; BANDS%(MANUAL) 1 % (0-7); LYMPH#(MANUAL) 2.03 x10^3/uL (1-3.4); LYMPHS% (MANUAL) 18 % (22-44); MONOS#(MANUAL) 0.34 x10^3/uL (0.3-2.7); MONOS% (MANUAL) 3 % (2-9); NRBC % (MANUAL) 3 % (0-1); POLYCHROMASIA 1+; SEG#(MANUAL) 8.81 x10^3/uL (1.8-6.8); SEGS% (MANUAL) 78 % (42-75)
[2019-06-29 05:04] LABS: <PLATELET ESTIMATE> INCREASED; <PLT MORPHOLOGY> NORMAL PLT MORPH
[2019-06-29] MEDS: PANTOPRAZOLE 40 MG IV IVPush SCH ×2 (05:53→17:16)
[2019-06-29] MEDS: GABAPENTIN 100 MG CAPSULE PO SCH ×2 (09:15→21:11)
[2019-06-29] MEDS: PAROXETINE 20 MG TABLET PO SCH (09:15)
[2019-06-29] MEDS ORDERED: INSULIN GLARGINE 100 UNITS/ML, PEN SQ-INSULIN SCH (10:00)
[2019-06-29] MEDS: POTASSIUM CHLORIDE 10% 40 MEQ/30 ML UDC PO SCH ×3 (11:36→21:11)
[2019-06-29] MEDS: SODIUM CHLORIDE FLUSH 10ML SYR IVF SCH ×2 (11:36→21:12)
[2019-06-29] MEDS ORDERED: INSULIN LISPRO 100 UNITS/ML, PEN SQ-INSULIN SCH (16:00)
[2019-06-29] MEDS: ACETAMINOPHEN 650 MG/20.3 ML UDC PO PRN (21:11)
[2019-06-29] MEDS: ENOXAPARIN 40 MG/0.4 ML SQ SCH (21:13)
[2019-06-30] MEDS: MEROPENEM 1 GM in SODIUM CHLORIDE 0.9% 100 ML IV SCH ×4 (02:19→23:31)
[2019-06-30] MEDS: QUETIAPINE 25MG TABLET PO SCH ×4 (02:21→23:45)
[2019-06-30] MEDS: methylPREDNISolone SOD SUCC 125 MG/2 ML IVPush SCH ×5 (02:21→23:31)
[2019-06-30] MEDS: NICOTINE 7 MG/24 HR PATCH.TD24 TD SCH ×2 (02:21→23:31)
[2019-06-30] MEDS: INSULIN LISPRO 100 UNITS/ML, PEN SQ-INSULIN SCH ×4 (03:26→21:06)
[2019-06-30] MEDS: ALBUMIN HUMAN 25% 100 ML IV SCH (03:26)
[2019-06-30] MEDS: ALBUTEROL/IPRATROPIUM 2.5MG/0.5MG, 3 ML INLINE SCH ×6 (03:37→22:22)
[2019-06-30] MEDS: FUROSEMIDE 40 MG/4 ML IV SCH (03:45)
[2019-06-30 04:30] LABS: MEAN CORPUSCULAR HEMOGLOBIN 36.6 pg (27.0-34.8); MEAN CORPUSCULAR HGB CONC 32.6 g/dL (32.4-35.8); MEAN CORPUSCULAR VOLUME 112.3 fL (80-100); MEAN PLATELET VOLUME 7.4 fL (7.4-10.4); PLATELET COUNT 523 x10^3/uL (130-400); RED BLOOD COUNT 2.34 x10^6/uL (3.82-5.3); RED CELL DISTRIBUTION WIDTH 15.2 % (9.6-15.2)
[2019-06-30 04:38] LABS: ANION GAP 4 mmol/L (5-15); CALCIUM 9.5 mg/dL (8.5-10.1); CHLORIDE 104 mmol/L (98-107); CREATININE 0.54 mg/dL (0.55-1.02); TRIGLYCERIDES 334 mg/dL (50-200)
[2019-06-30 04:53] LABS: BASOPHILS # (AUTO) 0.04 x10^3/uL (0-0.1); BASOPHILS % (AUTO) 1 % (0-1); EOSINOPHILS % (AUTO) 0 % (1-7); LYMPHOCYTES # (AUTO) 1.25 x10^3/uL (1-3.4); LYMPHOCYTES % (AUTO) 13 % (22-44); MD SCAN; MONOCYTES # (AUTO) 0.32 x10^3/uL (0.2-0.8); MONOCYTES % (AUTO) 3 % (2-9); NEUTROPHILS # (AUTO) 8.02 x10^3/uL (1.8-6.8); NEUTROPHILS % (AUTO) 83 % (42-75)
[2019-06-30] MEDS: PROPOFOL 100 ML IV PRN ×2 (05:41→14:25)
[2019-06-30] MEDS: PANTOPRAZOLE 40 MG IV IVPush SCH ×2 (05:41→16:11)
[2019-06-30] MEDS: GABAPENTIN 100 MG CAPSULE PO SCH ×2 (09:23→21:05)
[2019-06-30] MEDS: POTASSIUM CHLORIDE 10% 40 MEQ/30 ML UDC PO SCH ×4 (09:23→21:05)
[2019-06-30] MEDS: PAROXETINE 20 MG TABLET PO SCH (09:23)
[2019-06-30] MEDS: SODIUM CHLORIDE FLUSH 10ML SYR IVF SCH ×2 (10:23→21:06)
[2019-06-30] MEDS ORDERED: LACTULOSE 20 GM/30 ML UDC PO ONE (11:00)
[2019-06-30] MEDS: FENTANYL PF 100 MCG/2ML IVPush PRN (13:42)
[2019-06-30] MEDS: DEXMEDETOMIDINE 1,000 MCG in SODIUM CHLORIDE 0.9% 240 ML IV PRN (20:55)
[2019-06-30] MEDS: SENNA 176 MG/5 ML ORAL SOL NG PRN (21:06)
[2019-06-30] MEDS: ENOXAPARIN 40 MG/0.4 ML SQ SCH (21:06)
[2019-06-30] MEDS: MIDAZOLAM 1 MG/ML, 2ML IVPush PRN (21:40)
[2019-06-30] MEDS: ACETAMINOPHEN 650 MG/20.3 ML UDC PO PRN (23:31)
[2019-07-01] MEDS: INSULIN LISPRO 100 UNITS/ML, PEN SQ-INSULIN SCH ×4 (02:48→20:24)
[2019-07-01] MEDS: ALBUTEROL/IPRATROPIUM 2.5MG/0.5MG, 3 ML INLINE SCH ×6 (02:51→23:00)
[2019-07-01] MEDS: DEXMEDETOMIDINE 1,000 MCG in SODIUM CHLORIDE 0.9% 240 ML IV PRN ×3 (04:21→18:08)
[2019-07-01 05:15] LABS: MEAN CORPUSCULAR HEMOGLOBIN 36.2 pg (27.0-34.8); MEAN CORPUSCULAR VOLUME 113.2 fL (80-100); MEAN PLATELET VOLUME 7.6 fL (7.4-10.4); PLATELET COUNT 558 x10^3/uL (130-400); RED BLOOD COUNT 2.72 x10^6/uL (3.82-5.3); RED CELL DISTRIBUTION WIDTH 15.8 % (9.6-15.2)
[2019-07-01] MEDS: MIDAZOLAM 1 MG/ML, 2ML IVPush PRN (05:16)
[2019-07-01] MEDS: methylPREDNISolone SOD SUCC 125 MG/2 ML IVPush SCH ×4 (05:16→23:45)
[2019-07-01] MEDS: PANTOPRAZOLE 40 MG IV IVPush SCH (05:16)
[2019-07-01 05:20] LABS: CHLORIDE 107 mmol/L (98-107)
[2019-07-01 05:31] LABS: ANION GAP 5 mmol/L (5-15); CALCIUM 9.4 mg/dL (8.5-10.1); CREATININE 0.52 mg/dL (0.55-1.02)
[2019-07-01 05:55] LABS: MD YES
[2019-07-01 05:59] LABS: BANDS%(MANUAL) 1 % (0-7); LYMPH#(MANUAL) 1.68 x10^3/uL (1-3.4); LYMPHS% (MANUAL) 17 % (22-44); MONOS% (MANUAL) 5 % (2-9); NRBC % (MANUAL) 2 % (0-1); SEG#(MANUAL) 7.62 x10^3/uL (1.8-6.8); SEGS% (MANUAL) 77 % (42-75)
[2019-07-01 06:00] LABS: <PLATELET ESTIMATE> INCREASED; <PLT MORPHOLOGY> NORMAL PLT MORPH; ANISOCYTOSIS 1+; POLYCHROMASIA 1+
[2019-07-01 06:01] LABS: STOMATOCYTES 1+
[2019-07-01] MEDS: FENTANYL PF 100 MCG/2ML IVPush PRN ×7 (08:35→22:26)
[2019-07-01] MEDS: MEROPENEM 1 GM in SODIUM CHLORIDE 0.9% 100 ML IV SCH ×3 (08:38→23:45)
[2019-07-01] MEDS: SODIUM CHLORIDE FLUSH 10ML SYR IVF SCH ×2 (08:41→20:24)
[2019-07-01] MEDS: PAROXETINE 20 MG TABLET PO SCH (09:19)
[2019-07-01] MEDS: QUETIAPINE 25MG TABLET PO SCH ×2 (09:19→18:07)
[2019-07-01] MEDS: GABAPENTIN 100 MG CAPSULE PO SCH ×2 (09:19→20:18)
[2019-07-01] MEDS ORDERED: FUROSEMIDE 40 MG/4 ML IV ONE (13:00)
[2019-07-01] MEDS ORDERED: SODIUM CHLORIDE INHALATION 7%, 4 ML NPPB ONE (13:00)
[2019-07-01] MEDS: ACETAMINOPHEN 650 MG/20.3 ML UDC PO PRN ×2 (13:49→22:10)
[2019-07-01] MEDS: SODIUM CHLORIDE INHALATION 7%, 4 ML NPPB SCH ×2 (14:40→18:22)
[2019-07-01] MEDS ORDERED: MIDAZOLAM 1 MG/ML, 2ML IVPush PRN (19:45)
[2019-07-01] MEDS: ENOXAPARIN 40 MG/0.4 ML SQ SCH (20:18)
[2019-07-01] MEDS: SENNA 176 MG/5 ML ORAL SOL NG PRN (20:38)
[2019-07-01] MEDS ORDERED: SODIUM CHLORIDE INHALATION 7%, 4 ML NPPB SCH (21:00)
[2019-07-01] MEDS ORDERED: MIDAZOLAM 1 MG/ML, 5ML IVPush ONE (23:00)
[2019-07-01] MEDS: MIDAZOLAM HCL 25 MG in SODIUM CHLORIDE 0.9% 245 ML IV PRN (23:45)
[2019-07-01] MEDS: NICOTINE 7 MG/24 HR PATCH.TD24 TD SCH (23:45)
[2019-07-02] MEDS: QUETIAPINE 25MG TABLET PO SCH ×3 (01:32→17:39)
[2019-07-02] MEDS: DEXMEDETOMIDINE 1,000 MCG in SODIUM CHLORIDE 0.9% 240 ML IV PRN ×3 (01:32→23:18)
[2019-07-02] MEDS: ALBUTEROL/IPRATROPIUM 2.5MG/0.5MG, 3 ML INLINE SCH ×6 (03:00→23:00)
[2019-07-02] MEDS: INSULIN LISPRO 100 UNITS/ML, PEN SQ-INSULIN SCH ×4 (03:50→21:09)
[2019-07-02 05:40] LABS: ANION GAP 4 mmol/L (5-15); CALCIUM 9.1 mg/dL (8.5-10.1); CHLORIDE 107 mmol/L (98-107); CREATININE 0.52 mg/dL (0.55-1.02)
[2019-07-02 05:44] LABS: MEAN CORPUSCULAR HEMOGLOBIN 35.8 pg (27.0-34.8); MEAN CORPUSCULAR HGB CONC 31.5 g/dL (32.4-35.8); MEAN CORPUSCULAR VOLUME 113.7 fL (80-100); MEAN PLATELET VOLUME 7.5 fL (7.4-10.4); PLATELET COUNT 568 x10^3/uL (130-400); RED BLOOD COUNT 2.76 x10^6/uL (3.82-5.3); RED CELL DISTRIBUTION WIDTH 15.5 % (9.6-15.2)
[2019-07-02] MEDS: methylPREDNISolone SOD SUCC 125 MG/2 ML IVPush SCH ×3 (06:03→17:38)
[2019-07-02 06:17] LABS: BASOPHILS # (AUTO) 0.06 x10^3/uL (0-0.1); BASOPHILS % (AUTO) 1 % (0-1); EOSINOPHILS % (AUTO) 0 % (1-7); LYMPHOCYTES # (AUTO) 0.78 x10^3/uL (1-3.4); LYMPHOCYTES % (AUTO) 8 % (22-44); MD SCAN; MONOCYTES # (AUTO) 0.23 x10^3/uL (0.2-0.8); MONOCYTES % (AUTO) 2 % (2-9); NEUTROPHILS # (AUTO) 8.93 x10^3/uL (1.8-6.8); NEUTROPHILS % (AUTO) 89 % (42-75)
[2019-07-02] MEDS: MIDAZOLAM HCL 25 MG in SODIUM CHLORIDE 0.9% 245 ML IV PRN ×3 (06:58→12:00)
[2019-07-02] MEDS ORDERED: VANCOMYCIN PER PHARMACY MC PRN (07:00)
[2019-07-02] MEDS: VANCOMYCIN 2,000 MG in SODIUM CHLORIDE 0.9% 500 ML IV SCH ×2 (08:38→20:40)
[2019-07-02] MEDS: MEROPENEM 1 GM in SODIUM CHLORIDE 0.9% 100 ML IV SCH ×2 (08:49→16:06)
[2019-07-02] MEDS: SODIUM CHLORIDE INHALATION 7%, 4 ML NPPB SCH ×2 (09:00→19:31)
[2019-07-02] MEDS ORDERED: PHARMACOKINETIC MONITORING MC PRN (09:00)
[2019-07-02] MEDS: FENTANYL PF 100 MCG/2ML IVPush PRN (09:09)
[2019-07-02] MEDS ORDERED: FENTANYL PF 2,500 MCG in SODIUM CHLORIDE 0.9% 200 ML IV PRN (09:30)
[2019-07-02] MEDS: GABAPENTIN 100 MG CAPSULE PO SCH ×2 (10:00→20:41)
[2019-07-02] MEDS: AcetaZOLAMIDE INJ 500 MG IVPush SCH ×2 (10:00→20:40)
[2019-07-02] MEDS: PANTOPRAZOLE 40 MG IV IVPush SCH (10:01)
[2019-07-02] MEDS: PAROXETINE 20 MG TABLET PO SCH (10:44)
[2019-07-02] MEDS: SODIUM CHLORIDE FLUSH 10ML SYR IVF SCH ×2 (10:45→20:41)
[2019-07-02] MEDS ORDERED: MIDAZOLAM HCL 25 MG in SODIUM CHLORIDE 0.9% 245 ML IV PRN (12:00)
[2019-07-02] MEDS: MIDAZOLAM HCL 50 MG in SODIUM CHLORIDE 0.9% 240 ML IV PRN (19:12)
[2019-07-02] MEDS ORDERED: FUROSEMIDE 40 MG/4 ML IV ONE (19:30)
[2019-07-02] MEDS ORDERED: VECURONIUM 10 MG IVPush ONE ×2 (20:15→23:00)
[2019-07-02] MEDS: ENOXAPARIN 40 MG/0.4 ML SQ SCH (20:40)
[2019-07-02] MEDS ORDERED: VECURONIUM 50 MG in SODIUM CHLORIDE 0.9% 250 ML IV PRN (22:00)
[2019-07-02] MEDS ORDERED: PROPOFOL 100 ML IV PRN (22:00)
[2019-07-02] MEDS: VECURONIUM 50 MG in SODIUM CHLORIDE 0.9% 250 ML IV PRN (23:19)
[2019-07-03] MEDS: MIDAZOLAM HCL 50 MG in SODIUM CHLORIDE 0.9% 240 ML IV PRN ×4 (00:28→19:39)
[2019-07-03] MEDS: methylPREDNISolone SOD SUCC 125 MG/2 ML IVPush SCH ×5 (00:43→23:42)
[2019-07-03] MEDS: MEROPENEM 1 GM in SODIUM CHLORIDE 0.9% 100 ML IV SCH ×2 (00:43→08:20)
[2019-07-03] MEDS: QUETIAPINE 25MG TABLET PO SCH ×4 (00:43→23:42)
[2019-07-03] MEDS: NICOTINE 7 MG/24 HR PATCH.TD24 TD SCH ×2 (00:46→23:41)
[2019-07-03 01:50] LABS: CLOSTRIDIUM DIFFICILE ANTIGEN POSITIVE; CLOSTRIDIUM DIFFICILE TOXIN POSITIVE (Negative)
[2019-07-03] MEDS ORDERED: VANCOMYCIN 50 MG/ML ORAL SUSP PO SCH (02:30)
[2019-07-03] MEDS: ALBUTEROL/IPRATROPIUM 2.5MG/0.5MG, 3 ML INLINE SCH ×6 (03:07→23:00)
[2019-07-03] MEDS: INSULIN LISPRO 100 UNITS/ML, PEN SQ-INSULIN SCH ×4 (03:15→20:59)
[2019-07-03 06:12] LABS: ANION GAP 6 mmol/L (5-15); CALCIUM 8.9 mg/dL (8.5-10.1); CHLORIDE 110 mmol/L (98-107)
[2019-07-03 06:14] LABS: CREATININE 0.47 mg/dL (0.55-1.02); TRIGLYCERIDES 368 mg/dL (50-200)
[2019-07-03 06:21] LABS: MEAN CORPUSCULAR HEMOGLOBIN 36.2 pg (27.0-34.8); MEAN CORPUSCULAR HGB CONC 31.5 g/dL (32.4-35.8); MEAN CORPUSCULAR VOLUME 114.8 fL (80-100); PLATELET COUNT 547 x10^3/uL (130-400); RED BLOOD COUNT 2.74 x10^6/uL (3.82-5.3); RED CELL DISTRIBUTION WIDTH 15.8 % (9.6-15.2)
[2019-07-03 06:55] LABS: BASOPHILS # (AUTO) 0.01 x10^3/uL (0-0.1); BASOPHILS % (AUTO) 0 % (0-1); EOSINOPHILS % (AUTO) 0 % (1-7); LYMPHOCYTES # (AUTO) 0.36 x10^3/uL (1-3.4); LYMPHOCYTES % (AUTO) 5 % (22-44); MD SCAN; MONOCYTES # (AUTO) 0.18 x10^3/uL (0.2-0.8); MONOCYTES % (AUTO) 2 % (2-9); NEUTROPHILS % (AUTO) 93 % (42-75)
[2019-07-03] MEDS: SODIUM CHLORIDE INHALATION 7%, 4 ML NPPB SCH (07:01)
[2019-07-03] MEDS: DEXMEDETOMIDINE 1,000 MCG in SODIUM CHLORIDE 0.9% 240 ML IV PRN ×2 (07:16→19:58)
[2019-07-03] MEDS: GABAPENTIN 100 MG CAPSULE PO SCH ×2 (09:00→21:07)
[2019-07-03] MEDS: PAROXETINE 20 MG TABLET PO SCH (09:00)
[2019-07-03] MEDS: VECURONIUM 50 MG in SODIUM CHLORIDE 0.9% 250 ML IV PRN (09:38)
[2019-07-03] MEDS: METRONIDAZOLE PMX 500MG/100ML 100 ML IVPB SCH ×3 (09:55→22:27)
[2019-07-03] MEDS: AcetaZOLAMIDE INJ 500 MG IVPush SCH ×2 (09:59→20:56)
[2019-07-03] MEDS: PANTOPRAZOLE 40 MG IV IVPush SCH (09:59)
[2019-07-03] MEDS: SODIUM CHLORIDE FLUSH 10ML SYR IVF SCH ×2 (09:59→20:55)
[2019-07-03] MEDS: VANCOMYCIN 50 MG/ML ORAL SUSP PR SCH ×4 (11:04→22:35)
[2019-07-03] MEDS: ENOXAPARIN 40 MG/0.4 ML SQ SCH (19:56)
[2019-07-04] MEDS: VECURONIUM 50 MG in SODIUM CHLORIDE 0.9% 250 ML IV PRN ×2 (00:05→14:05)
[2019-07-04] MEDS: ALBUTEROL/IPRATROPIUM 2.5MG/0.5MG, 3 ML INLINE SCH ×6 (03:00→22:33)
[2019-07-04 03:45] LABS: ANION GAP 4 mmol/L (5-15); CALCIUM 8.8 mg/dL (8.5-10.1); CHLORIDE 112 mmol/L (98-107); CREATININE 0.34 mg/dL (0.55-1.02); MEAN CORPUSCULAR HEMOGLOBIN 35.3 pg (27.0-34.8); MEAN CORPUSCULAR HGB CONC 31.4 g/dL (32.4-35.8); MEAN CORPUSCULAR VOLUME 112.5 fL (80-100); MEAN PLATELET VOLUME 7.8 fL (7.4-10.4); PLATELET COUNT 594 x10^3/uL (130-400); RED BLOOD COUNT 2.98 x10^6/uL (3.82-5.3)
[2019-07-04] MEDS: INSULIN LISPRO 100 UNITS/ML, PEN SQ-INSULIN SCH ×4 (03:55→20:52)
[2019-07-04] MEDS: METRONIDAZOLE PMX 500MG/100ML 100 ML IVPB SCH ×4 (04:01→22:05)
[2019-07-04] MEDS: VANCOMYCIN 50 MG/ML ORAL SUSP PR SCH ×4 (04:03→22:05)
[2019-07-04 04:15] LABS: BASOPHILS # (AUTO) 0.01 x10^3/uL (0-0.1); BASOPHILS % (AUTO) 0 % (0-1); EOSINOPHILS % (AUTO) 0 % (1-7); LYMPHOCYTES # (AUTO) 0.26 x10^3/uL (1-3.4); LYMPHOCYTES % (AUTO) 4 % (22-44); MD SCAN; MONOCYTES # (AUTO) 0.18 x10^3/uL (0.2-0.8); MONOCYTES % (AUTO) 3 % (2-9); NEUTROPHILS # (AUTO) 6.15 x10^3/uL (1.8-6.8); NEUTROPHILS % (AUTO) 93 % (42-75)
[2019-07-04] MEDS: methylPREDNISolone SOD SUCC 125 MG/2 ML IVPush SCH ×4 (05:06→23:49)
[2019-07-04] MEDS: MIDAZOLAM HCL 50 MG in SODIUM CHLORIDE 0.9% 240 ML IV PRN ×2 (05:58→16:19)
[2019-07-04] MEDS: DEXMEDETOMIDINE 1,000 MCG in SODIUM CHLORIDE 0.9% 240 ML IV PRN ×2 (06:00→16:18)
[2019-07-04] MEDS: QUETIAPINE 25MG TABLET PO SCH ×2 (08:33→17:00)
[2019-07-04] MEDS: GABAPENTIN 100 MG CAPSULE PO SCH ×2 (08:33→20:44)
[2019-07-04] MEDS: PAROXETINE 20 MG TABLET PO SCH (08:33)
[2019-07-04] MEDS: SODIUM CHLORIDE FLUSH 10ML SYR IVF SCH ×2 (09:10→20:53)
[2019-07-04] MEDS: PANTOPRAZOLE 40 MG IV IVPush SCH (09:10)
[2019-07-04] MEDS ORDERED: POTASSIUM CHLORIDE 40 MEQ in SODIUM CHLORIDE 0.9% 100 ML IV ONE (09:30)
[2019-07-04] MEDS: ENOXAPARIN 40 MG/0.4 ML SQ SCH (20:49)
[2019-07-04] MEDS: NICOTINE 7 MG/24 HR PATCH.TD24 TD SCH (23:50)
[2019-07-05] MEDS: QUETIAPINE 25MG TABLET PO SCH ×3 (00:04→16:41)
[2019-07-05] MEDS: VECURONIUM 50 MG in SODIUM CHLORIDE 0.9% 250 ML IV PRN ×2 (01:36→12:08)
[2019-07-05] MEDS: ALBUTEROL/IPRATROPIUM 2.5MG/0.5MG, 3 ML INLINE SCH ×6 (02:47→22:35)
[2019-07-05 03:15] LABS: MEAN CORPUSCULAR HEMOGLOBIN 35.7 pg (27.0-34.8); MEAN CORPUSCULAR HGB CONC 31.4 g/dL (32.4-35.8); MEAN CORPUSCULAR VOLUME 113.9 fL (80-100); MEAN PLATELET VOLUME 8.1 fL (7.4-10.4); PLATELET COUNT 598 x10^3/uL (130-400); RED BLOOD COUNT 3.06 x10^6/uL (3.82-5.3); RED CELL DISTRIBUTION WIDTH 15.8 % (9.6-15.2)
[2019-07-05 03:25] LABS: ANION GAP 3 mmol/L (5-15); CALCIUM 8.5 mg/dL (8.5-10.1); CHLORIDE 117 mmol/L (98-107)
[2019-07-05] MEDS: METRONIDAZOLE PMX 500MG/100ML 100 ML IVPB SCH ×4 (03:43→21:29)
[2019-07-05] MEDS: INSULIN LISPRO 100 UNITS/ML, PEN SQ-INSULIN SCH ×4 (03:58→21:02)
[2019-07-05 04:00] LABS: MD YES
[2019-07-05 04:02] LABS: ANISOCYTOSIS 1+; BAND#(MANUAL) 0.14 x10^3/uL; BANDS%(MANUAL) 2 % (0-7); LYMPH#(MANUAL) 0.36 x10^3/uL (1-3.4); LYMPHS% (MANUAL) 5 % (22-44); MONOS#(MANUAL) 0.36 x10^3/uL (0.3-2.7); MONOS% (MANUAL) 5 % (2-9); POLYCHROMASIA 1+; SEG#(MANUAL) 6.25 x10^3/uL (1.8-6.8); SEGS% (MANUAL) 88 % (42-75)
[2019-07-05 04:03] LABS: <PLATELET ESTIMATE> INCREASED; <PLT MORPHOLOGY> NORMAL PLT MORPH
[2019-07-05] MEDS: VANCOMYCIN 50 MG/ML ORAL SUSP PR SCH ×4 (04:06→21:28)
[2019-07-05] MEDS: MIDAZOLAM HCL 50 MG in SODIUM CHLORIDE 0.9% 240 ML IV PRN ×2 (04:11→15:13)
[2019-07-05] MEDS: DEXMEDETOMIDINE 1,000 MCG in SODIUM CHLORIDE 0.9% 240 ML IV PRN ×2 (04:13→15:14)
[2019-07-05] MEDS: methylPREDNISolone SOD SUCC 125 MG/2 ML IVPush SCH ×3 (05:58→21:28)
[2019-07-05] MEDS: PAROXETINE 20 MG TABLET PO SCH (09:00)
[2019-07-05] MEDS: GABAPENTIN 100 MG CAPSULE PO SCH ×2 (09:00→21:00)
[2019-07-05] MEDS: FUROSEMIDE 40 MG/4 ML IV SCH ×2 (09:22→16:54)
[2019-07-05] MEDS: PANTOPRAZOLE 40 MG IV IVPush SCH (09:23)
[2019-07-05] MEDS: SODIUM CHLORIDE FLUSH 10ML SYR IVF SCH ×2 (09:23→21:01)
[2019-07-05 13:05] LABS: MICROSCOPIC NOT IND
[2019-07-05 13:10] LABS: CULTURE INDICATED? NO
[2019-07-05] MEDS ORDERED: ELECTROLYTE REPLACEMENT PROTOCOL CRITICAL CARE ONLY MC PRN (15:00)
[2019-07-05] MEDS ORDERED: POTASSIUM CHLORIDE PMX 100 ML IV ONE (16:00)
[2019-07-05] MEDS: ENOXAPARIN 40 MG/0.4 ML SQ SCH (19:26)
[2019-07-05] MEDS: ACETAMINOPHEN 650 MG/20.3 ML UDC PO PRN (23:16)
[2019-07-06] MEDS: NICOTINE 7 MG/24 HR PATCH.TD24 TD SCH (00:17)
[2019-07-06] MEDS: FUROSEMIDE 40 MG/4 ML IV SCH ×2 (00:17→08:52)
[2019-07-06] MEDS: DEXMEDETOMIDINE 1,000 MCG in SODIUM CHLORIDE 0.9% 240 ML IV PRN ×3 (00:21→16:43)
[2019-07-06] MEDS: MIDAZOLAM HCL 50 MG in SODIUM CHLORIDE 0.9% 240 ML IV PRN ×2 (00:21→05:20)
[2019-07-06] MEDS: QUETIAPINE 25MG TABLET PO SCH ×3 (01:00→16:32)
[2019-07-06] MEDS: ALBUTEROL/IPRATROPIUM 2.5MG/0.5MG, 3 ML INLINE SCH ×6 (02:46→23:00)
[2019-07-06] MEDS: INSULIN LISPRO 100 UNITS/ML, PEN SQ-INSULIN SCH ×4 (02:57→20:59)
[2019-07-06] MEDS: VANCOMYCIN 50 MG/ML ORAL SUSP PR SCH ×4 (03:56→21:44)
[2019-07-06] MEDS: METRONIDAZOLE PMX 500MG/100ML 100 ML IVPB SCH ×4 (03:56→21:36)
[2019-07-06 04:13] LABS: MEAN CORPUSCULAR HEMOGLOBIN 36.1 pg (27.0-34.8); MEAN CORPUSCULAR HGB CONC 32.2 g/dL (32.4-35.8); MEAN CORPUSCULAR VOLUME 112.1 fL (80-100); MEAN PLATELET VOLUME 8.3 fL (7.4-10.4); PLATELET COUNT 544 x10^3/uL (130-400); RED BLOOD COUNT 2.98 x10^6/uL (3.82-5.3); RED CELL DISTRIBUTION WIDTH 15.2 % (9.6-15.2)
[2019-07-06 04:22] LABS: ANION GAP 5 mmol/L (5-15); CALCIUM 8.5 mg/dL (8.5-10.1); CHLORIDE 113 mmol/L (98-107); CREATININE 0.45 mg/dL (0.55-1.02); TRIGLYCERIDES 259 mg/dL (50-200)
[2019-07-06 04:26] LABS: MD YES
[2019-07-06 04:31] LABS: BANDS%(MANUAL) 4 % (0-7); LYMPH#(MANUAL) 0.76 x10^3/uL (1-3.4); LYMPHS% (MANUAL) 10 % (22-44); MONOS% (MANUAL) 4 % (2-9); SEG#(MANUAL) 6.23 x10^3/uL (1.8-6.8); SEGS% (MANUAL) 82 % (42-75)
[2019-07-06 04:32] LABS: <PLATELET ESTIMATE> INCREASED; <PLT MORPHOLOGY> NORMAL PLT MORPH; ANISOCYTOSIS 1+; POLYCHROMASIA 1+
[2019-07-06] MEDS ORDERED: POTASSIUM CHLORIDE PMX 100 ML IVPB ONE (05:00)
[2019-07-06] MEDS: methylPREDNISolone SOD SUCC 125 MG/2 ML IVPush SCH ×3 (05:20→21:36)
[2019-07-06] MEDS: FENTANYL PF 100 MCG/2ML IVPush PRN (06:08)
[2019-07-06] MEDS: SODIUM CHLORIDE FLUSH 10ML SYR IVF SCH ×2 (08:52→21:37)
[2019-07-06] MEDS: GABAPENTIN 100 MG CAPSULE PO SCH (08:53)
[2019-07-06] MEDS: PANTOPRAZOLE 40 MG IV IVPush SCH (08:53)
[2019-07-06] MEDS: PAROXETINE 20 MG TABLET PO SCH (08:53)
[2019-07-06] MEDS ORDERED: QUETIAPINE 25MG TABLET PO ONE (09:30)
[2019-07-06] MEDS ORDERED: PHENOBARBITAL ETOH DETOX PER PHARMACY MC PRN (09:30)
[2019-07-06] MEDS ORDERED: PHENOBARBITAL SODIUM IV ONE (10:00)
[2019-07-06] MEDS ORDERED: SODIUM CHLORIDE 0.9% IV ONE (10:00)
[2019-07-06] MEDS ORDERED: KSCALE TO 4.5 IV SCH (11:00)
[2019-07-06] MEDS ORDERED: POTASSIUM CHLORIDE 40 MEQ in SODIUM CHLORIDE 0.9% 100 ML IV ONE (12:00)
[2019-07-06] MEDS ORDERED: PHENOBARBITAL SODIUM 260 MG in SODIUM CHLORIDE 0.9% 50 ML IV ONE (16:00)
[2019-07-06] MEDS: FUROSEMIDE 20 MG/2 ML IV SCH (16:32)
[2019-07-06] MEDS: ACETAMINOPHEN 650 MG/20.3 ML UDC PO PRN (16:49)
[2019-07-06] MEDS: KSCALE TO 4.5 IV SCH (20:00)
[2019-07-06] MEDS: ENOXAPARIN 40 MG/0.4 ML SQ SCH (20:59)
[2019-07-06] MEDS ORDERED: POTASSIUM CHLORIDE 30 MEQ in SODIUM CHLORIDE 0.9% 100 ML IV ONE (21:30)
[2019-07-06] MEDS ORDERED: PHENOBARBITAL SODIUM 130 MG/ML, 1ML IM SCH (22:30)
[2019-07-07] MEDS ORDERED: PHENOBARBITAL SODIUM 65 MG/ML, 1ML IM SCH ×2 (01:00→10:30)
[2019-07-07] MEDS: NICOTINE 7 MG/24 HR PATCH.TD24 TD SCH ×2 (01:11→23:59)
[2019-07-07] MEDS: DEXMEDETOMIDINE 1,000 MCG in SODIUM CHLORIDE 0.9% 240 ML IV PRN ×2 (01:37→08:55)
[2019-07-07] MEDS: FUROSEMIDE 20 MG/2 ML IV SCH ×3 (01:37→21:16)
[2019-07-07] MEDS: QUETIAPINE 25MG TABLET PO SCH ×3 (01:37→16:38)
[2019-07-07] MEDS ORDERED: POTASSIUM CHLORIDE PMX 100 ML IV ONE ×4 (03:00→20:36)
[2019-07-07] MEDS: KSCALE TO 4.5 IV SCH ×4 (03:17→20:00)
[2019-07-07] MEDS: METRONIDAZOLE PMX 500MG/100ML 100 ML IVPB SCH ×4 (03:57→21:17)
[2019-07-07] MEDS: INSULIN LISPRO 100 UNITS/ML, PEN SQ-INSULIN SCH ×4 (04:07→21:00)
[2019-07-07 04:40] LABS: ANION GAP 7 mmol/L (5-15); CALCIUM 8.6 mg/dL (8.5-10.1); CHLORIDE 108 mmol/L (98-107); CREATININE 0.37 mg/dL (0.55-1.02)
[2019-07-07 04:43] LABS: MEAN CORPUSCULAR HEMOGLOBIN 36.3 pg (27.0-34.8); MEAN CORPUSCULAR HGB CONC 32.5 g/dL (32.4-35.8); MEAN CORPUSCULAR VOLUME 111.4 fL (80-100); MEAN PLATELET VOLUME 8.8 fL (7.4-10.4); PLATELET COUNT 455 x10^3/uL (130-400); RED BLOOD COUNT 2.69 x10^6/uL (3.82-5.3); RED CELL DISTRIBUTION WIDTH 15.3 % (9.6-15.2)
[2019-07-07] MEDS: VANCOMYCIN 50 MG/ML ORAL SUSP PR SCH (05:24)
[2019-07-07 05:42] LABS: MD YES
[2019-07-07 05:43] LABS: ANISOCYTOSIS 1+; BAND#(MANUAL) 0.09 x10^3/uL; BANDS%(MANUAL) 1 % (0-7); LYMPH#(MANUAL) 0.75 x10^3/uL (1-3.4); LYMPHS% (MANUAL) 8 % (22-44); MONOS#(MANUAL) 0.38 x10^3/uL (0.3-2.7); MONOS% (MANUAL) 4 % (2-9); NRBC % (MANUAL) 1 % (0-1); SEG#(MANUAL) 8.18 x10^3/uL (1.8-6.8); SEGS% (MANUAL) 87 % (42-75)
[2019-07-07 05:44] LABS: <PLATELET ESTIMATE> INCREASED; <PLT MORPHOLOGY> NORMAL PLT MORPH; POLYCHROMASIA 1+
[2019-07-07] MEDS: methylPREDNISolone SOD SUCC 125 MG/2 ML IVPush SCH (06:31)
[2019-07-07] MEDS: ALBUTEROL/IPRATROPIUM 2.5MG/0.5MG, 3 ML INLINE SCH ×6 (07:00→23:00)
[2019-07-07] MEDS: SODIUM CHLORIDE FLUSH 10ML SYR IVF SCH ×2 (08:16→21:16)
[2019-07-07] MEDS: PANTOPRAZOLE 40 MG IV IVPush SCH (08:16)
[2019-07-07] MEDS: PAROXETINE 20 MG TABLET PO SCH (08:16)
[2019-07-07] MEDS: GABAPENTIN 250 MG/5 ML ORAL SOL PO SCH ×2 (08:17→21:15)
[2019-07-07] MEDS: VANCOMYCIN 50 MG/ML ORAL SUSP NG SCH ×3 (08:55→21:16)
[2019-07-07] MEDS ORDERED: MAGNESIUM SULFATE PMX 2GM/50ML 50 ML IV ONE (09:00)
[2019-07-07] MEDS ORDERED: DEXMEDETOMIDINE 200 MCG in SODIUM CHLORIDE 0.9% 48 ML IV PRN (11:00)
[2019-07-07] MEDS: PROPOFOL 100 ML IV PRN ×2 (11:33→21:15)
[2019-07-07] MEDS: ENOXAPARIN 40 MG/0.4 ML SQ SCH (19:53)
[2019-07-07] MEDS: FENTANYL PF 100 MCG/2ML IVPush PRN ×2 (19:54→20:31)
[2019-07-07] MEDS ORDERED: methylPREDNISolone SOD SUCC 40 MG/ML IVPush SCH (21:00)
[2019-07-07] MEDS ORDERED: PHENOBARBITAL 20 MG/5 ML ORAL SOL PO SCH ×2 (22:30)
[2019-07-07] MEDS: MIDAZOLAM 1 MG/ML, 5ML IVPush PRN (23:13)
[2019-07-08] MEDS: KSCALE TO 4.5 IV SCH ×4 (02:00→19:54)
[2019-07-08] MEDS ORDERED: POTASSIUM CHLORIDE PMX 100 ML IV ONE ×3 (02:00→15:30)
[2019-07-08] MEDS: VANCOMYCIN 50 MG/ML ORAL SUSP NG SCH ×4 (02:11→20:25)
[2019-07-08] MEDS: FENTANYL PF 100 MCG/2ML IVPush PRN (02:11)
[2019-07-08] MEDS: MIDAZOLAM 1 MG/ML, 5ML IVPush PRN (02:47)
[2019-07-08] MEDS: ALBUTEROL/IPRATROPIUM 2.5MG/0.5MG, 3 ML INLINE SCH ×6 (03:10→23:05)
[2019-07-08] MEDS: INSULIN LISPRO 100 UNITS/ML, PEN SQ-INSULIN SCH ×4 (04:22→20:33)
[2019-07-08] MEDS: METRONIDAZOLE PMX 500MG/100ML 100 ML IVPB SCH ×4 (04:25→21:15)
[2019-07-08 04:37] LABS: MEAN CORPUSCULAR HGB CONC 32.4 g/dL (32.4-35.8); MEAN CORPUSCULAR VOLUME 111.3 fL (80-100); MEAN PLATELET VOLUME 9.1 fL (7.4-10.4); PLATELET COUNT 445 x10^3/uL (130-400); RED CELL DISTRIBUTION WIDTH 15.4 % (9.6-15.2)
[2019-07-08 04:46] LABS: ANION GAP 4 mmol/L (5-15); CALCIUM 7.8 mg/dL (8.5-10.1); CHLORIDE 112 mmol/L (98-107); CREATININE 0.46 mg/dL (0.55-1.02)
[2019-07-08 05:00] LABS: BASOPHILS # (AUTO) 0.18 x10^3/uL (0-0.1); BASOPHILS % (AUTO) 2 % (0-1); EOSINOPHILS # (AUTO) 0.33 x10^3/uL (0-0.4); EOSINOPHILS % (AUTO) 3 % (1-7); LYMPHOCYTES # (AUTO) 2.03 x10^3/uL (1-3.4); LYMPHOCYTES % (AUTO) 20 % (22-44); MD SCAN; MONOCYTES # (AUTO) 0.31 x10^3/uL (0.2-0.8); MONOCYTES % (AUTO) 3 % (2-9); NEUTROPHILS # (AUTO) 7.31 x10^3/uL (1.8-6.8); NEUTROPHILS % (AUTO) 72 % (42-75)
[2019-07-08] MEDS ORDERED: MAGNESIUM SULFATE PMX 2GM/50ML 50 ML IV ONE (07:00)
[2019-07-08] MEDS: FUROSEMIDE 20 MG/2 ML IV SCH ×2 (08:58→20:24)
[2019-07-08] MEDS: PANTOPRAZOLE 40 MG IV IVPush SCH (08:58)
[2019-07-08] MEDS: SODIUM CHLORIDE FLUSH 10ML SYR IVF SCH ×2 (08:59→20:24)
[2019-07-08] MEDS: QUETIAPINE 25MG TABLET PO SCH ×3 (08:59→16:10)
[2019-07-08] MEDS: PAROXETINE 20 MG TABLET PO SCH (09:00)
[2019-07-08] MEDS: GABAPENTIN 250 MG/5 ML ORAL SOL PO SCH ×2 (09:00→20:24)
[2019-07-08] MEDS: DEXMEDETOMIDINE 1,000 MCG in SODIUM CHLORIDE 0.9% 240 ML IV PRN ×2 (11:28)
[2019-07-08] MEDS: ENOXAPARIN 40 MG/0.4 ML SQ SCH (19:14)
[2019-07-08] MEDS ORDERED: PHENOBARBITAL 20 MG/5 ML ORAL SOL PO SCH (22:30)
[2019-07-09] MEDS: NICOTINE 7 MG/24 HR PATCH.TD24 TD SCH
[2019-07-09] MEDS: QUETIAPINE 25MG TABLET PO SCH ×3 (01:10→17:03)
[2019-07-09] MEDS: DEXMEDETOMIDINE 1,000 MCG in SODIUM CHLORIDE 0.9% 240 ML IV PRN ×3 (01:40→23:58)
[2019-07-09] MEDS: ALBUTEROL/IPRATROPIUM 2.5MG/0.5MG, 3 ML INLINE SCH ×6 (02:43→23:00)
[2019-07-09 03:33] LABS: MEAN CORPUSCULAR VOLUME 112.3 fL (80-100); RED BLOOD COUNT 2.64 x10^6/uL (3.82-5.3); RED CELL DISTRIBUTION WIDTH 15.3 % (9.6-15.2)
[2019-07-09] MEDS: VANCOMYCIN 50 MG/ML ORAL SUSP NG SCH ×4 (03:36→20:36)
[2019-07-09] MEDS: METRONIDAZOLE PMX 500MG/100ML 100 ML IVPB SCH ×4 (03:37→22:10)
[2019-07-09 03:42] LABS: ANION GAP 5 mmol/L (5-15); CHLORIDE 111 mmol/L (98-107); CREATININE 0.36 mg/dL (0.55-1.02); TRIGLYCERIDES 198 mg/dL (50-200)
[2019-07-09] MEDS: INSULIN LISPRO 100 UNITS/ML, PEN SQ-INSULIN SCH ×4 (03:46→21:00)
[2019-07-09] MEDS: KSCALE TO 4.5 IV SCH ×4 (03:46→22:00)
[2019-07-09] MEDS ORDERED: MAGNESIUM SULFATE PMX 2GM/50ML 50 ML IV ONE (04:00)
[2019-07-09] MEDS ORDERED: POTASSIUM CHLORIDE PMX 100 ML IV ONE ×2 (04:00→17:00)
[2019-07-09 04:08] LABS: BASOPHILS # (AUTO) 0.17 x10^3/uL (0-0.1); BASOPHILS % (AUTO) 2 % (0-1); EOSINOPHILS # (AUTO) 0.49 x10^3/uL (0-0.4); EOSINOPHILS % (AUTO) 5 % (1-7); LYMPHOCYTES % (AUTO) 21 % (22-44); MD SCAN; MEAN PLATELET VOLUME 9.5 fL (7.4-10.4); MONOCYTES # (AUTO) 0.11 x10^3/uL (0.2-0.8); MONOCYTES % (AUTO) 1 % (2-9); NEUTROPHILS # (AUTO) 7.15 x10^3/uL (1.8-6.8); NEUTROPHILS % (AUTO) 71 % (42-75); PLATELET COUNT 419 x10^3/uL (130-400)
[2019-07-09] MEDS: GABAPENTIN 250 MG/5 ML ORAL SOL PO SCH ×2 (10:11→20:36)
[2019-07-09] MEDS: PANTOPRAZOLE 40 MG IV IVPush SCH (10:11)
[2019-07-09] MEDS: FUROSEMIDE 20 MG/2 ML IV SCH ×2 (10:11→20:37)
[2019-07-09] MEDS: PAROXETINE 20 MG TABLET PO SCH (10:12)
[2019-07-09] MEDS: SODIUM CHLORIDE FLUSH 10ML SYR IVF SCH ×2 (10:13→20:37)
[2019-07-09] MEDS ORDERED: FUROSEMIDE 20 MG/2 ML IV ONE (11:00)
[2019-07-09] MEDS: FENTANYL PF 100 MCG/2ML IVPush PRN ×2 (16:01→20:52)
[2019-07-09] MEDS: ENOXAPARIN 40 MG/0.4 ML SQ SCH (20:37)
[2019-07-10] MEDS: NICOTINE 7 MG/24 HR PATCH.TD24 TD SCH (01:50)
[2019-07-10] MEDS: QUETIAPINE 25MG TABLET PO SCH ×3 (01:50→15:45)
[2019-07-10] MEDS: FENTANYL PF 100 MCG/2ML IVPush PRN ×4 (01:51→22:00)
[2019-07-10] MEDS: ALBUTEROL/IPRATROPIUM 2.5MG/0.5MG, 3 ML INLINE SCH ×6 (02:28→22:44)
[2019-07-10] MEDS: VANCOMYCIN 50 MG/ML ORAL SUSP NG SCH ×4 (03:00→22:03)
[2019-07-10] MEDS: INSULIN LISPRO 100 UNITS/ML, PEN SQ-INSULIN SCH ×4 (03:00→22:23)
[2019-07-10] MEDS: METRONIDAZOLE PMX 500MG/100ML 100 ML IVPB SCH ×4 (04:00→22:10)
[2019-07-10] MEDS: KSCALE TO 4.5 IV SCH ×4 (04:00→22:00)
[2019-07-10 04:51] LABS: CHLORIDE 105 mmol/L (98-107); CREATININE 0.35 mg/dL (0.55-1.02)
[2019-07-10 04:52] LABS: MEAN CORPUSCULAR HEMOGLOBIN 35.5 pg (27.0-34.8); MEAN CORPUSCULAR HGB CONC 31.8 g/dL (32.4-35.8); MEAN CORPUSCULAR VOLUME 111.7 fL (80-100); MEAN PLATELET VOLUME 10.1 fL (7.4-10.4); PLATELET COUNT 420 x10^3/uL (130-400); RED BLOOD COUNT 2.67 x10^6/uL (3.82-5.3); RED CELL DISTRIBUTION WIDTH 15.4 % (9.6-15.2)
[2019-07-10 05:10] LABS: ANION GAP 6 mmol/L (5-15)
[2019-07-10 05:52] LABS: BASOPHILS # (AUTO) 0.08 x10^3/uL (0-0.1); BASOPHILS % (AUTO) 1 % (0-1); EOSINOPHILS # (AUTO) 0.49 x10^3/uL (0-0.4); EOSINOPHILS % (AUTO) 4 % (1-7); LYMPHOCYTES # (AUTO) 1.66 x10^3/uL (1-3.4); LYMPHOCYTES % (AUTO) 13 % (22-44); MD SCAN; MONOCYTES # (AUTO) 0.25 x10^3/uL (0.2-0.8); MONOCYTES % (AUTO) 2 % (2-9); NEUTROPHILS # (AUTO) 10.29 x10^3/uL (1.8-6.8); NEUTROPHILS % (AUTO) 81 % (42-75)
[2019-07-10] MEDS ORDERED: POTASSIUM CHLORIDE PMX 100 ML IV ONE ×3 (06:00→17:00)
[2019-07-10] MEDS ORDERED: MAGNESIUM SULFATE PMX 2GM/50ML 50 ML IV ONE (07:00)
[2019-07-10] MEDS: ACETAMINOPHEN 650 MG/20.3 ML UDC PO PRN ×3 (07:44→22:02)
[2019-07-10] MEDS: SODIUM CHLORIDE FLUSH 10ML SYR IVF SCH ×2 (08:50→22:02)
[2019-07-10] MEDS: FUROSEMIDE 20 MG/2 ML IV SCH ×2 (08:50→22:02)
[2019-07-10] MEDS: PANTOPRAZOLE 40 MG IV IVPush SCH (08:50)
[2019-07-10] MEDS: PAROXETINE 20 MG TABLET PO SCH (08:51)
[2019-07-10] MEDS: GABAPENTIN 250 MG/5 ML ORAL SOL PO SCH ×2 (08:55→22:03)
[2019-07-10] MEDS: DEXMEDETOMIDINE 1,000 MCG in SODIUM CHLORIDE 0.9% 240 ML IV PRN ×2 (08:58→18:45)
[2019-07-10 10:43] LABS: MICROSCOPIC INDICATED
[2019-07-10 10:44] LABS: CULTURE INDICATED? YES
[2019-07-10] MEDS: ENOXAPARIN 40 MG/0.4 ML SQ SCH (22:03)
[2019-07-10] MEDS ORDERED: PHENOBARBITAL 20 MG/5 ML ORAL SOL PO SCH (22:30)
[2019-07-11] MEDS: NICOTINE 7 MG/24 HR PATCH.TD24 TD SCH (00:29)
[2019-07-11] MEDS: QUETIAPINE 25MG TABLET PO SCH ×3 (00:29→18:12)
[2019-07-11] MEDS: ALBUTEROL/IPRATROPIUM 2.5MG/0.5MG, 3 ML INLINE SCH ×6 (02:51→22:38)
[2019-07-11] MEDS: VANCOMYCIN 50 MG/ML ORAL SUSP NG SCH ×4 (02:57→20:43)
[2019-07-11] MEDS: FENTANYL PF 100 MCG/2ML IVPush PRN ×3 (02:57→20:42)
[2019-07-11] MEDS: INSULIN LISPRO 100 UNITS/ML, PEN SQ-INSULIN SCH ×4 (03:00→21:00)
[2019-07-11] MEDS: METRONIDAZOLE PMX 500MG/100ML 100 ML IVPB SCH ×4 (03:43→21:26)
[2019-07-11] MEDS: KSCALE TO 4.5 IV SCH ×4 (03:43→22:00)
[2019-07-11 04:32] LABS: ANION GAP 6 mmol/L (5-15); CALCIUM 8.4 mg/dL (8.5-10.1); CHLORIDE 102 mmol/L (98-107); CREATININE 0.35 mg/dL (0.55-1.02)
[2019-07-11 04:43] LABS: MEAN CORPUSCULAR HEMOGLOBIN 35.4 pg (27.0-34.8); MEAN CORPUSCULAR HGB CONC 31.8 g/dL (32.4-35.8); MEAN CORPUSCULAR VOLUME 111.2 fL (80-100); MEAN PLATELET VOLUME 9.9 fL (7.4-10.4); PLATELET COUNT 383 x10^3/uL (130-400); RED BLOOD COUNT 2.73 x10^6/uL (3.82-5.3); RED CELL DISTRIBUTION WIDTH 14.9 % (9.6-15.2)
[2019-07-11] MEDS: ACETAMINOPHEN 650 MG/20.3 ML UDC PO PRN ×2 (05:16→13:23)
[2019-07-11 05:41] LABS: BASOPHILS # (AUTO) 0.14 x10^3/uL (0-0.1); BASOPHILS % (AUTO) 1 % (0-1); EOSINOPHILS # (AUTO) 0.37 x10^3/uL (0-0.4); EOSINOPHILS % (AUTO) 3 % (1-7); LYMPHOCYTES # (AUTO) 1.33 x10^3/uL (1-3.4); LYMPHOCYTES % (AUTO) 11 % (22-44); MD SCAN; MONOCYTES # (AUTO) 0.32 x10^3/uL (0.2-0.8); MONOCYTES % (AUTO) 3 % (2-9); NEUTROPHILS # (AUTO) 9.74 x10^3/uL (1.8-6.8); NEUTROPHILS % (AUTO) 82 % (42-75)
[2019-07-11] MEDS ORDERED: MAGNESIUM SULFATE PMX 2GM/50ML 50 ML IV ONE (07:00)
[2019-07-11] MEDS: FUROSEMIDE 20 MG/2 ML IV SCH ×2 (09:28→20:43)
[2019-07-11] MEDS: PANTOPRAZOLE 40 MG IV IVPush SCH (09:28)
[2019-07-11] MEDS: GABAPENTIN 250 MG/5 ML ORAL SOL PO SCH ×2 (09:29→20:43)
[2019-07-11] MEDS: PAROXETINE 20 MG TABLET PO SCH (09:29)
[2019-07-11] MEDS: SODIUM CHLORIDE FLUSH 10ML SYR IVF SCH ×2 (09:30→20:43)
[2019-07-11] MEDS ORDERED: POTASSIUM CHLORIDE PMX 100 ML IV ONE ×2 (12:00→22:30)
[2019-07-11] MEDS: DEXMEDETOMIDINE 1,000 MCG in SODIUM CHLORIDE 0.9% 240 ML IV PRN ×2 (13:23→22:37)
[2019-07-11] MEDS ORDERED: SODIUM CHLORIDE 0.9%, 500ML IVBOLUS ONE (15:30)
[2019-07-11] MEDS: ENOXAPARIN 40 MG/0.4 ML SQ SCH (20:43)
[2019-07-11] MEDS ORDERED: PHENOBARBITAL 20 MG/5 ML ORAL SOL PO SCH (22:30)
[2019-07-12] MEDS: QUETIAPINE 25MG TABLET PO SCH ×3 (00:27→17:00)
[2019-07-12] MEDS: ACETAMINOPHEN 650 MG/20.3 ML UDC PO PRN (00:27)
[2019-07-12] MEDS: FENTANYL PF 100 MCG/2ML IVPush PRN ×2 (00:28→17:00)
[2019-07-12] MEDS: NICOTINE 7 MG/24 HR PATCH.TD24 TD SCH (00:28)
[2019-07-12] MEDS: ALBUTEROL/IPRATROPIUM 2.5MG/0.5MG, 3 ML INLINE SCH ×6 (02:20→22:14)
[2019-07-12] MEDS: INSULIN LISPRO 100 UNITS/ML, PEN SQ-INSULIN SCH ×4 (03:00→21:00)
[2019-07-12] MEDS ORDERED: SODIUM CHLORIDE 0.9%, 250ML IVBOLUS ONE (03:30)
[2019-07-12] MEDS: METRONIDAZOLE PMX 500MG/100ML 100 ML IVPB SCH ×4 (03:49→22:25)
[2019-07-12] MEDS: VANCOMYCIN 50 MG/ML ORAL SUSP NG SCH ×4 (03:49→20:59)
[2019-07-12] MEDS: KSCALE TO 4.5 IV SCH ×4 (04:00→22:00)
[2019-07-12 04:20] LABS: ANION GAP 3 mmol/L (5-15); CALCIUM 7.9 mg/dL (8.5-10.1); CHLORIDE 103 mmol/L (98-107); CREATININE 0.29 mg/dL (0.55-1.02); TRIGLYCERIDES 150 mg/dL (50-200)
[2019-07-12 04:47] LABS: MEAN CORPUSCULAR HEMOGLOBIN 35.7 pg (27.0-34.8); MEAN CORPUSCULAR HGB CONC 32.3 g/dL (32.4-35.8); MEAN CORPUSCULAR VOLUME 110.7 fL (80-100); MEAN PLATELET VOLUME 10.1 fL (7.4-10.4); PLATELET COUNT 345 x10^3/uL (130-400); RED BLOOD COUNT 2.35 x10^6/uL (3.82-5.3); RED CELL DISTRIBUTION WIDTH 14.9 % (9.6-15.2)
[2019-07-12] MEDS ORDERED: POTASSIUM CHLORIDE PMX 100 ML IV ONE ×2 (05:00→19:30)
[2019-07-12 05:56] LABS: BASOPHILS # (AUTO) 0.02 x10^3/uL (0-0.1); BASOPHILS % (AUTO) 0 % (0-1); EOSINOPHILS # (AUTO) 0.41 x10^3/uL (0-0.4); EOSINOPHILS % (AUTO) 4 % (1-7); LYMPHOCYTES # (AUTO) 1.16 x10^3/uL (1-3.4); LYMPHOCYTES % (AUTO) 12 % (22-44); MD SCAN; MONOCYTES # (AUTO) 0.25 x10^3/uL (0.2-0.8); MONOCYTES % (AUTO) 3 % (2-9); NEUTROPHILS # (AUTO) 7.49 x10^3/uL (1.8-6.8); NEUTROPHILS % (AUTO) 80 % (42-75)
[2019-07-12] MEDS: GABAPENTIN 250 MG/5 ML ORAL SOL PO SCH ×2 (09:59→20:59)
[2019-07-12] MEDS: PANTOPRAZOLE 40 MG IV IVPush SCH (09:59)
[2019-07-12] MEDS: PAROXETINE 20 MG TABLET PO SCH (10:00)
[2019-07-12] MEDS: SODIUM CHLORIDE FLUSH 10ML SYR IVF SCH ×2 (10:00→21:00)
[2019-07-12] MEDS: DEXMEDETOMIDINE 1,000 MCG in SODIUM CHLORIDE 0.9% 240 ML IV PRN ×2 (11:28→21:00)
[2019-07-12] MEDS: ENOXAPARIN 40 MG/0.4 ML SQ SCH (20:00)
[2019-07-13] MEDS: FENTANYL PF 100 MCG/2ML IVPush PRN ×5 (00:30→21:19)
[2019-07-13] MEDS: QUETIAPINE 25MG TABLET PO SCH (00:34)
[2019-07-13] MEDS: NICOTINE 7 MG/24 HR PATCH.TD24 TD SCH (00:34)
[2019-07-13] MEDS: ALBUTEROL/IPRATROPIUM 2.5MG/0.5MG, 3 ML INLINE SCH ×6 (02:20→23:00)
[2019-07-13] MEDS: INSULIN LISPRO 100 UNITS/ML, PEN SQ-INSULIN SCH ×4 (03:00→21:00)
[2019-07-13] MEDS: KSCALE TO 4.5 IV SCH (04:00)
[2019-07-13] MEDS: VANCOMYCIN 50 MG/ML ORAL SUSP NG SCH ×4 (04:08→21:19)
[2019-07-13] MEDS: METRONIDAZOLE PMX 500MG/100ML 100 ML IVPB SCH ×4 (04:09→21:20)
[2019-07-13 04:48] LABS: MEAN CORPUSCULAR HEMOGLOBIN 35.6 pg (27.0-34.8); MEAN CORPUSCULAR HGB CONC 32.6 g/dL (32.4-35.8); MEAN PLATELET VOLUME 9.9 fL (7.4-10.4); PLATELET COUNT 355 x10^3/uL (130-400); RED BLOOD COUNT 2.41 x10^6/uL (3.82-5.3); RED CELL DISTRIBUTION WIDTH 14.4 % (9.6-15.2)
[2019-07-13 05:00] LABS: ANION GAP 5 mmol/L (5-15); CALCIUM 8.1 mg/dL (8.5-10.1); CHLORIDE 104 mmol/L (98-107)
[2019-07-13 05:03] LABS: CREATININE 0.28 mg/dL (0.55-1.02)
[2019-07-13 05:13] LABS: BASOPHILS # (AUTO) 0.07 x10^3/uL (0-0.1); BASOPHILS % (AUTO) 1 % (0-1); EOSINOPHILS # (AUTO) 0.38 x10^3/uL (0-0.4); EOSINOPHILS % (AUTO) 4 % (1-7); LYMPHOCYTES # (AUTO) 1.71 x10^3/uL (1-3.4); LYMPHOCYTES % (AUTO) 16 % (22-44); MD SCAN; MONOCYTES # (AUTO) 0.31 x10^3/uL (0.2-0.8); MONOCYTES % (AUTO) 3 % (2-9); NEUTROPHILS # (AUTO) 8.37 x10^3/uL (1.8-6.8); NEUTROPHILS % (AUTO) 77 % (42-75)
[2019-07-13] MEDS ORDERED: MAGNESIUM SULFATE PMX 2GM/50ML 50 ML IV ONE (06:30)
[2019-07-13] MEDS: SODIUM CHLORIDE FLUSH 10ML SYR IVF SCH ×2 (09:00→21:20)
[2019-07-13] MEDS: DEXMEDETOMIDINE 1,000 MCG in SODIUM CHLORIDE 0.9% 240 ML IV PRN ×2 (09:27→19:59)
[2019-07-13] MEDS: PAROXETINE 20 MG TABLET PO SCH (09:27)
[2019-07-13] MEDS: GABAPENTIN 250 MG/5 ML ORAL SOL PO SCH ×2 (09:27→21:20)
[2019-07-13] MEDS: PANTOPRAZOLE 40 MG IV IVPush SCH (09:28)
[2019-07-13] MEDS: POTASSIUM CHLORIDE 10% 20 MEQ/15 ML UDC NG SCH ×2 (09:28→21:20)
[2019-07-13] MEDS ORDERED: ROCURONIUM 10MG/ML,5ML ONE (12:37)
[2019-07-13] MEDS ORDERED: MIDAZOLAM 1 MG/ML, 2ML ONE ×2 (12:37→14:34)
[2019-07-13] MEDS ORDERED: FENTANYL PF 100 MCG/2ML ONE (12:37)
[2019-07-13] MEDS ORDERED: BUPIVACAINE/PF 0.5% ONE (12:38)
[2019-07-13] MEDS ORDERED: EPINEPHRINE 1 MG/ML, 1ML ONE (12:38)
[2019-07-13] MEDS ORDERED: ALBUTEROL HFA 90 MCG/SPRAY ONE (14:07)
[2019-07-13] MEDS: ENOXAPARIN 40 MG/0.4 ML SQ SCH (21:20)
[2019-07-14] MEDS: NICOTINE 7 MG/24 HR PATCH.TD24 TD SCH ×2 (01:49→23:56)
[2019-07-14] MEDS: FENTANYL PF 100 MCG/2ML IVPush PRN ×6 (01:50→23:46)
[2019-07-14] MEDS: INSULIN LISPRO 100 UNITS/ML, PEN SQ-INSULIN SCH ×4 (02:22→20:14)
[2019-07-14] MEDS: ACETAMINOPHEN 650 MG/20.3 ML UDC PO PRN ×3 (02:22→22:25)
[2019-07-14] MEDS: VANCOMYCIN 50 MG/ML ORAL SUSP NG SCH ×4 (02:22→22:25)
[2019-07-14] MEDS: ALBUTEROL/IPRATROPIUM 2.5MG/0.5MG, 3 ML INLINE SCH ×6 (02:50→22:09)
[2019-07-14] MEDS: METRONIDAZOLE PMX 500MG/100ML 100 ML IVPB SCH ×4 (04:26→22:25)
[2019-07-14 05:09] LABS: MEAN CORPUSCULAR HEMOGLOBIN 35.4 pg (27.0-34.8); MEAN CORPUSCULAR HGB CONC 32.4 g/dL (32.4-35.8); MEAN CORPUSCULAR VOLUME 109.3 fL (80-100); MEAN PLATELET VOLUME 8.9 fL (7.4-10.4); PLATELET COUNT 317 x10^3/uL (130-400); RED BLOOD COUNT 2.31 x10^6/uL (3.82-5.3)
[2019-07-14 05:15] LABS: ANION GAP 8 mmol/L (5-15); CALCIUM 8.3 mg/dL (8.5-10.1); CHLORIDE 106 mmol/L (98-107)
[2019-07-14 05:18] LABS: CREATININE 0.23 mg/dL (0.55-1.02)
[2019-07-14] MEDS: DEXMEDETOMIDINE 1,000 MCG in SODIUM CHLORIDE 0.9% 240 ML IV PRN ×2 (05:23→20:15)
[2019-07-14 05:58] LABS: BASOPHILS # (AUTO) 0.03 x10^3/uL (0-0.1); BASOPHILS % (AUTO) 0 % (0-1); EOSINOPHILS # (AUTO) 0.43 x10^3/uL (0-0.4); EOSINOPHILS % (AUTO) 5 % (1-7); LYMPHOCYTES # (AUTO) 1.72 x10^3/uL (1-3.4); LYMPHOCYTES % (AUTO) 20 % (22-44); MD SCAN; MONOCYTES # (AUTO) 0.37 x10^3/uL (0.2-0.8); MONOCYTES % (AUTO) 4 % (2-9); NEUTROPHILS % (AUTO) 71 % (42-75)
[2019-07-14] MEDS: POTASSIUM CHLORIDE 10% 20 MEQ/15 ML UDC NG SCH ×2 (07:57→20:15)
[2019-07-14] MEDS: SODIUM CHLORIDE FLUSH 10ML SYR IVF SCH ×2 (07:57→20:15)
[2019-07-14] MEDS: PANTOPRAZOLE 40 MG IV IVPush SCH (07:57)
[2019-07-14] MEDS: PAROXETINE 20 MG TABLET PO SCH (07:57)
[2019-07-14] MEDS: GABAPENTIN 250 MG/5 ML ORAL SOL PO SCH ×2 (08:07→20:15)
[2019-07-14] MEDS: FLUCONAZOLE 200 MG/100 ML 100 ML IV SCH (08:07)
[2019-07-14] MEDS: OXYcodone IR 5MG TABLET PO PRN (13:50)
[2019-07-14] MEDS: ENOXAPARIN 40 MG/0.4 ML SQ SCH (20:15)
[2019-07-15] MEDS: ALBUTEROL/IPRATROPIUM 2.5MG/0.5MG, 3 ML INLINE SCH ×6 (01:58→23:42)
[2019-07-15] MEDS: INSULIN LISPRO 100 UNITS/ML, PEN SQ-INSULIN SCH ×4 (03:00→21:00)
[2019-07-15] MEDS: VANCOMYCIN 50 MG/ML ORAL SUSP NG SCH ×4 (04:32→21:33)
[2019-07-15] MEDS: METRONIDAZOLE PMX 500MG/100ML 100 ML IVPB SCH (04:32)
[2019-07-15 04:33] LABS: MEAN CORPUSCULAR HEMOGLOBIN 35.7 pg (27.0-34.8); MEAN CORPUSCULAR HGB CONC 32.4 g/dL (32.4-35.8); MEAN CORPUSCULAR VOLUME 110.1 fL (80-100); MEAN PLATELET VOLUME 8.6 fL (7.4-10.4); PLATELET COUNT 319 x10^3/uL (130-400); RED BLOOD COUNT 2.52 x10^6/uL (3.82-5.3); RED CELL DISTRIBUTION WIDTH 14.4 % (9.6-15.2)
[2019-07-15 04:42] LABS: ANION GAP 7 mmol/L (5-15); CHLORIDE 101 mmol/L (98-107); CREATININE 0.21 mg/dL (0.55-1.02); TRIGLYCERIDES 229 mg/dL (50-200)
[2019-07-15] MEDS: FENTANYL PF 100 MCG/2ML IVPush PRN ×6 (04:44→21:45)
[2019-07-15] MEDS: ACETAMINOPHEN 650 MG/20.3 ML UDC PO PRN ×2 (04:44→10:55)
[2019-07-15 05:57] LABS: BASOPHILS # (AUTO) 0.06 x10^3/uL (0-0.1); BASOPHILS % (AUTO) 1 % (0-1); EOSINOPHILS # (AUTO) 0.67 x10^3/uL (0-0.4); EOSINOPHILS % (AUTO) 7 % (1-7); LYMPHOCYTES # (AUTO) 2.18 x10^3/uL (1-3.4); LYMPHOCYTES % (AUTO) 21 % (22-44); MD SCAN; MONOCYTES # (AUTO) 0.37 x10^3/uL (0.2-0.8); MONOCYTES % (AUTO) 4 % (2-9); NEUTROPHILS # (AUTO) 7.12 x10^3/uL (1.8-6.8); NEUTROPHILS % (AUTO) 69 % (42-75)
[2019-07-15] MEDS ORDERED: MAGNESIUM SULFATE PMX 4GM/100M 100 ML IV ONE (07:00)
[2019-07-15] MEDS: FLUCONAZOLE 200 MG/100 ML 100 ML IV SCH (07:04)
[2019-07-15] MEDS: DEXMEDETOMIDINE 1,000 MCG in SODIUM CHLORIDE 0.9% 240 ML IV PRN ×2 (07:04→17:50)
[2019-07-15] MEDS: PAROXETINE 20 MG TABLET PO SCH (08:44)
[2019-07-15] MEDS: PANTOPRAZOLE 40 MG IV IVPush SCH (08:44)
[2019-07-15] MEDS: SODIUM CHLORIDE FLUSH 10ML SYR IVF SCH ×2 (09:00→21:32)
[2019-07-15] MEDS: GABAPENTIN 250 MG/5 ML ORAL SOL PO SCH ×2 (10:02→21:32)
[2019-07-15] MEDS ORDERED: SODIUM CHLORIDE 0.9%, 250ML IVBOLUS ONE (13:00)
[2019-07-15] MEDS ORDERED: MIDAZOLAM 1 MG/ML, 5ML IVPush ONE (17:00)
[2019-07-15] MEDS ORDERED: MIDAZOLAM 1 MG/ML, 2ML IVPush PRN (17:00)
[2019-07-15] MEDS ORDERED: SODIUM CHLORIDE 0.9%, 500ML IVBOLUS ONE (17:00)
[2019-07-15] MEDS: ENOXAPARIN 40 MG/0.4 ML SQ SCH (21:32)
[2019-07-16] MEDS: NICOTINE 7 MG/24 HR PATCH.TD24 TD SCH (00:04)
[2019-07-16] MEDS: FENTANYL PF 100 MCG/2ML IVPush PRN ×7 (00:35→20:26)
[2019-07-16] MEDS: ALBUTEROL/IPRATROPIUM 2.5MG/0.5MG, 3 ML INLINE SCH ×6 (02:33→22:08)
[2019-07-16] MEDS: INSULIN LISPRO 100 UNITS/ML, PEN SQ-INSULIN SCH (03:00)
[2019-07-16] MEDS: DEXMEDETOMIDINE 1,000 MCG in SODIUM CHLORIDE 0.9% 240 ML IV PRN (03:46)
[2019-07-16] MEDS: VANCOMYCIN 50 MG/ML ORAL SUSP NG SCH ×4 (03:46→20:26)
[2019-07-16 05:15] LABS: BASOPHILS # (AUTO) 0.07 x10^3/uL (0-0.1); BASOPHILS % (AUTO) 1 % (0-1); EOSINOPHILS # (AUTO) 0.57 x10^3/uL (0-0.4); EOSINOPHILS % (AUTO) 5 % (1-7); LYMPHOCYTES # (AUTO) 2.47 x10^3/uL (1-3.4); LYMPHOCYTES % (AUTO) 21 % (22-44); MD NO; MEAN CORPUSCULAR HEMOGLOBIN 35.4 pg (27.0-34.8); MEAN CORPUSCULAR HGB CONC 32.6 g/dL (32.4-35.8); MEAN CORPUSCULAR VOLUME 108.3 fL (80-100); MEAN PLATELET VOLUME 8.4 fL (7.4-10.4); MONOCYTES # (AUTO) 0.12 x10^3/uL (0.2-0.8); MONOCYTES % (AUTO) 1 % (2-9); NEUTROPHILS # (AUTO) 8.56 x10^3/uL (1.8-6.8); NEUTROPHILS % (AUTO) 73 % (42-75); PLATELET COUNT 370 x10^3/uL (130-400); RED BLOOD COUNT 2.62 x10^6/uL (3.82-5.3); RED CELL DISTRIBUTION WIDTH 14.1 % (9.6-15.2)
[2019-07-16 05:27] LABS: ANION GAP 5 mmol/L (5-15); CALCIUM 8.2 mg/dL (8.5-10.1); CHLORIDE 104 mmol/L (98-107); CREATININE 0.29 mg/dL (0.55-1.02)
[2019-07-16] MEDS: FLUCONAZOLE 200 MG/100 ML 100 ML IV SCH (07:26)
[2019-07-16] MEDS ORDERED: MAGNESIUM SULFATE PMX 4GM/100M 100 ML IV ONE (07:30)
[2019-07-16] MEDS: GABAPENTIN 250 MG/5 ML ORAL SOL PO SCH ×2 (09:15→20:26)
[2019-07-16] MEDS: PANTOPRAZOLE 40 MG IV IVPush SCH (09:15)
[2019-07-16] MEDS: RISPERIDONE 1 MG TABLET PO SCH ×2 (09:16→20:26)
[2019-07-16] MEDS: PAROXETINE 20 MG TABLET PO SCH (09:16)
[2019-07-16] MEDS: SODIUM CHLORIDE FLUSH 10ML SYR IVF SCH ×2 (09:17→20:25)
[2019-07-16] MEDS: LIDOCAINE-MPF 1%, 2ML ENDO PRN (14:05)
[2019-07-16] MEDS: ENOXAPARIN 40 MG/0.4 ML SQ SCH (20:25)
[2019-07-16] MEDS ORDERED: MIDAZOLAM 1 MG/ML, 5ML IVPush ONE (22:00)
[2019-07-17] MEDS: FENTANYL PF 100 MCG/2ML IVPush PRN ×6 (00:19→19:58)
[2019-07-17] MEDS: ALBUTEROL/IPRATROPIUM 2.5MG/0.5MG, 3 ML INLINE SCH ×6 (02:06→22:30)
[2019-07-17] MEDS: VANCOMYCIN 50 MG/ML ORAL SUSP NG SCH ×4 (03:49→21:11)
[2019-07-17 04:25] LABS: MEAN CORPUSCULAR HEMOGLOBIN 34.9 pg (27.0-34.8); MEAN CORPUSCULAR VOLUME 109.2 fL (80-100); MEAN PLATELET VOLUME 8.5 fL (7.4-10.4); PLATELET COUNT 353 x10^3/uL (130-400); RED BLOOD COUNT 2.67 x10^6/uL (3.82-5.3); RED CELL DISTRIBUTION WIDTH 14.7 % (9.6-15.2)
[2019-07-17 04:29] LABS: ANION GAP 5 mmol/L (5-15); CALCIUM 7.9 mg/dL (8.5-10.1); CHLORIDE 103 mmol/L (98-107); CREATININE 0.34 mg/dL (0.55-1.02)
[2019-07-17 04:45] LABS: MD YES
[2019-07-17 04:47] LABS: ANISOCYTOSIS 1+; BASOS#(MANUAL) 0.23 x10^3/uL (0-0.1); BASOS% (MANUAL) 2 % (0-1); EOS#(MANUAL) 0.11 x10^3/uL (0.0-0.4); EOS% (MANUAL) 1 % (1-7); LYMPH#(MANUAL) 2.15 x10^3/uL (1-3.4); LYMPHS% (MANUAL) 19 % (22-44); MONOS#(MANUAL) 0.23 x10^3/uL (0.3-2.7); MONOS% (MANUAL) 2 % (2-9); NRBC % (MANUAL) 2 % (0-1); POLYCHROMASIA 1+; REACTIVE LYMPHS # (MANUAL) 0.11 x10^3/uL (0-0); REACTIVE LYMPHS % (MANUAL) 1 % (0-0); SEG#(MANUAL) 8.48 x10^3/uL (1.8-6.8); SEGS% (MANUAL) 75 % (42-75)
[2019-07-17 04:48] LABS: <PLATELET ESTIMATE> ADEQUATE; <PLT MORPHOLOGY> NORMAL PLT MORPH
[2019-07-17] MEDS ORDERED: MAGNESIUM SULFATE PMX 4GM/100M 100 ML IV ONE (05:30)
[2019-07-17] MEDS: FLUCONAZOLE 200 MG/100 ML 100 ML IV SCH (05:38)
[2019-07-17 06:00] VITALS: BP 122/82
[2019-07-17] MEDS ORDERED: MAGNESIUM SULFATE 6 GM in SODIUM CHLORIDE 0.9% 150 ML IV ONE (07:00)
[2019-07-17] MEDS: PANTOPRAZOLE 40 MG IV IVPush SCH (09:01)
[2019-07-17] MEDS: SODIUM CHLORIDE FLUSH 10ML SYR IVF SCH ×2 (09:01→21:11)
[2019-07-17] MEDS: RISPERIDONE 1 MG TABLET PO SCH ×2 (09:02→21:11)
[2019-07-17] MEDS: PAROXETINE 20 MG TABLET PO SCH (09:02)
[2019-07-17] MEDS: GABAPENTIN 250 MG/5 ML ORAL SOL PO SCH ×2 (09:03→21:11)
[2019-07-17] MEDS: OXYcodone IR 5MG TABLET PO PRN (17:38)
[2019-07-17] MEDS: ENOXAPARIN 40 MG/0.4 ML SQ SCH (19:57)
[2019-07-17] MEDS: LIDOCAINE-MPF 1%, 2ML ENDO PRN (22:30)
[2019-07-17 23:54] LABS: CLOSTRIDIUM DIFFICILE ANTIGEN POSITIVE; CLOSTRIDIUM DIFFICILE TOXIN NEGATIVE (Negative)
[2019-07-18] MEDS: OXYcodone IR 5MG TABLET PO PRN ×4 (00:02→20:34)
[2019-07-18] MEDS: ALBUTEROL/IPRATROPIUM 2.5MG/0.5MG, 3 ML INLINE SCH ×7 (02:21→23:00)
[2019-07-18] MEDS: FENTANYL PF 100 MCG/2ML IVPush PRN ×2 (02:29→09:40)
[2019-07-18 06:20] LABS: BASOPHILS # (AUTO) 0.06 x10^3/uL (0-0.1); BASOPHILS % (AUTO) 1 % (0-1); EOSINOPHILS # (AUTO) 0.89 x10^3/uL (0-0.4); EOSINOPHILS % (AUTO) 8 % (1-7); LYMPHOCYTES % (AUTO) 19 % (22-44); MD NO; MEAN CORPUSCULAR HEMOGLOBIN 34.5 pg (27.0-34.8); MEAN CORPUSCULAR HGB CONC 31.8 g/dL (32.4-35.8); MEAN CORPUSCULAR VOLUME 108.5 fL (80-100); MEAN PLATELET VOLUME 7.8 fL (7.4-10.4); MONOCYTES # (AUTO) 0.35 x10^3/uL (0.2-0.8); MONOCYTES % (AUTO) 3 % (2-9); NEUTROPHILS # (AUTO) 7.94 x10^3/uL (1.8-6.8); NEUTROPHILS % (AUTO) 70 % (42-75); PLATELET COUNT 360 x10^3/uL (130-400); RED BLOOD COUNT 2.86 x10^6/uL (3.82-5.3); RED CELL DISTRIBUTION WIDTH 14.6 % (9.6-15.2)
[2019-07-18 06:31] LABS: ANION GAP 5 mmol/L (5-15); CALCIUM 8.4 mg/dL (8.5-10.1); CHLORIDE 102 mmol/L (98-107); CREATININE 0.27 mg/dL (0.55-1.02); TRIGLYCERIDES 206 mg/dL (50-200)
[2019-07-18] MEDS: FLUCONAZOLE 200 MG/100 ML 100 ML IV SCH (07:48)
[2019-07-18] MEDS: SODIUM CHLORIDE FLUSH 10ML SYR IVF SCH ×2 (07:48→20:33)
[2019-07-18] MEDS: PAROXETINE 20 MG TABLET PO SCH (07:49)
[2019-07-18] MEDS: PANTOPRAZOLE 40 MG IV IVPush SCH (07:49)
[2019-07-18] MEDS: RISPERIDONE 1 MG TABLET PO SCH ×2 (07:49→20:34)
[2019-07-18] MEDS: GABAPENTIN 250 MG/5 ML ORAL SOL PO SCH ×2 (07:59→20:34)
[2019-07-18] MEDS ORDERED: MAGNESIUM SULFATE 6 GM in SODIUM CHLORIDE 0.9% 150 ML IV ONE (08:00)
[2019-07-18] MEDS: ENOXAPARIN 40 MG/0.4 ML SQ SCH (20:34)
[2019-07-19] MEDS: OXYcodone IR 5MG TABLET PO PRN ×4 (00:15→21:56)
[2019-07-19] MEDS: ALBUTEROL/IPRATROPIUM 2.5MG/0.5MG, 3 ML INLINE SCH ×6 (02:50→23:00)
[2019-07-19] MEDS: FENTANYL PF 100 MCG/2ML IVPush PRN ×2 (03:48→06:42)
[2019-07-19 04:52] LABS: BASOPHILS # (AUTO) 0.03 x10^3/uL (0-0.1); BASOPHILS % (AUTO) 0 % (0-1); EOSINOPHILS # (AUTO) 0.88 x10^3/uL (0-0.4); EOSINOPHILS % (AUTO) 9 % (1-7); LYMPHOCYTES # (AUTO) 1.93 x10^3/uL (1-3.4); LYMPHOCYTES % (AUTO) 20 % (22-44); MD NO; MEAN CORPUSCULAR HEMOGLOBIN 34.6 pg (27.0-34.8); MEAN CORPUSCULAR VOLUME 108.1 fL (80-100); MEAN PLATELET VOLUME 7.8 fL (7.4-10.4); MONOCYTES # (AUTO) 0.49 x10^3/uL (0.2-0.8); MONOCYTES % (AUTO) 5 % (2-9); NEUTROPHILS % (AUTO) 66 % (42-75); PLATELET COUNT 370 x10^3/uL (130-400); RED BLOOD COUNT 2.56 x10^6/uL (3.82-5.3); RED CELL DISTRIBUTION WIDTH 14.5 % (9.6-15.2)
[2019-07-19 05:02] LABS: ANION GAP 5 mmol/L (5-15); CALCIUM 8.4 mg/dL (8.5-10.1); CHLORIDE 100 mmol/L (98-107)
[2019-07-19 05:04] LABS: CREATININE 0.32 mg/dL (0.55-1.02)
[2019-07-19 06:00] VITALS: BP 110/67
[2019-07-19] MEDS ORDERED: MAGNESIUM SULFATE PMX 4GM/100M 100 ML IV ONE (07:30)
[2019-07-19] MEDS: RISPERIDONE 1 MG TABLET PO SCH ×2 (08:01→20:35)
[2019-07-19] MEDS: GABAPENTIN 250 MG/5 ML ORAL SOL PO SCH ×2 (08:01→20:35)
[2019-07-19] MEDS: PAROXETINE 20 MG TABLET PO SCH (08:01)
[2019-07-19] MEDS: SODIUM CHLORIDE FLUSH 10ML SYR IVF SCH ×2 (08:02→20:36)
[2019-07-19] MEDS: LIDOCAINE-MPF 1%, 2ML ENDO PRN ×3 (10:15→17:50)
[2019-07-19] MEDS: ENOXAPARIN 40 MG/0.4 ML SQ SCH (20:35)
[2019-07-20] MEDS: OXYcodone IR 5MG TABLET PO PRN ×3 (02:37→20:09)
[2019-07-20] MEDS: ALBUTEROL/IPRATROPIUM 2.5MG/0.5MG, 3 ML INLINE SCH ×6 (04:00→23:17)
[2019-07-20 05:09] LABS: BASOPHILS # (AUTO) 0.17 x10^3/uL (0-0.1); BASOPHILS % (AUTO) 2 % (0-1); EOSINOPHILS # (AUTO) 1.16 x10^3/uL (0-0.4); EOSINOPHILS % (AUTO) 12 % (1-7); LYMPHOCYTES % (AUTO) 24 % (22-44); MD NO; MEAN CORPUSCULAR HGB CONC 31.8 g/dL (32.4-35.8); MEAN CORPUSCULAR VOLUME 107.2 fL (80-100); MEAN PLATELET VOLUME 8.1 fL (7.4-10.4); MONOCYTES # (AUTO) 0.66 x10^3/uL (0.2-0.8); MONOCYTES % (AUTO) 7 % (2-9); NEUTROPHILS # (AUTO) 5.69 x10^3/uL (1.8-6.8); NEUTROPHILS % (AUTO) 56 % (42-75); PLATELET COUNT 429 x10^3/uL (130-400); RED BLOOD COUNT 2.71 x10^6/uL (3.82-5.3); RED CELL DISTRIBUTION WIDTH 14.1 % (9.6-15.2)
[2019-07-20 05:19] LABS: CALCIUM 8.3 mg/dL (8.5-10.1); CHLORIDE 97 mmol/L (98-107)
[2019-07-20 05:23] LABS: ANION GAP 7 mmol/L (5-15); CREATININE 0.32 mg/dL (0.55-1.02)
[2019-07-20] MEDS: FENTANYL PF 100 MCG/2ML IVPush PRN (05:44)
[2019-07-20 06:00] VITALS: BP 112/76
[2019-07-20] MEDS ORDERED: MAGNESIUM SULFATE PMX 4GM/100M 100 ML IV ONE (07:30)
[2019-07-20] MEDS ORDERED: BENZONATATE 100 MG CAPSULE PO PRN (09:00)
[2019-07-20] MEDS: PAROXETINE 20 MG TABLET PO SCH (09:51)
[2019-07-20] MEDS: GABAPENTIN 250 MG/5 ML ORAL SOL PO SCH ×2 (09:51→21:02)
[2019-07-20] MEDS: RISPERIDONE 1 MG TABLET PO SCH ×2 (09:51→21:02)
[2019-07-20] MEDS: BENZONATATE 100 MG CAPSULE PO SCH ×3 (09:51→21:02)
[2019-07-20] MEDS: SODIUM CHLORIDE FLUSH 10ML SYR IVF SCH ×2 (09:52→21:02)
[2019-07-20] MEDS: ACETAMINOPHEN 650 MG/20.3 ML UDC PO PRN (11:34)
[2019-07-20] MEDS: LIDOCAINE-MPF 1%, 2ML ENDO PRN ×3 (13:40→16:20)
[2019-07-20] MEDS: ENOXAPARIN 40 MG/0.4 ML SQ SCH (20:09)
[2019-07-21] MEDS: OXYcodone IR 5MG TABLET PO PRN ×4 (00:25→20:03)
[2019-07-21] MEDS: ACETAMINOPHEN 650 MG/20.3 ML UDC PO PRN ×2 (02:02→16:15)
[2019-07-21] MEDS: ALBUTEROL/IPRATROPIUM 2.5MG/0.5MG, 3 ML INLINE SCH ×6 (02:37→22:39)
[2019-07-21 04:29] LABS: BASOPHILS # (AUTO) 0.07 x10^3/uL (0-0.1); BASOPHILS % (AUTO) 1 % (0-1); EOSINOPHILS # (AUTO) 1.21 x10^3/uL (0-0.4); EOSINOPHILS % (AUTO) 14 % (1-7); LYMPHOCYTES # (AUTO) 2.05 x10^3/uL (1-3.4); LYMPHOCYTES % (AUTO) 24 % (22-44); MD NO; MEAN CORPUSCULAR HEMOGLOBIN 33.7 pg (27.0-34.8); MEAN CORPUSCULAR HGB CONC 32.3 g/dL (32.4-35.8); MEAN CORPUSCULAR VOLUME 104.2 fL (80-100); MONOCYTES # (AUTO) 0.73 x10^3/uL (0.2-0.8); MONOCYTES % (AUTO) 8 % (2-9); NEUTROPHILS # (AUTO) 4.61 x10^3/uL (1.8-6.8); NEUTROPHILS % (AUTO) 53 % (42-75); PLATELET COUNT 471 x10^3/uL (130-400); RED BLOOD COUNT 2.59 x10^6/uL (3.82-5.3); RED CELL DISTRIBUTION WIDTH 14.5 % (9.6-15.2)
[2019-07-21 04:39] LABS: ANION GAP 5 mmol/L (5-15); CALCIUM 8.6 mg/dL (8.5-10.1); CHLORIDE 100 mmol/L (98-107); CREATININE 0.35 mg/dL (0.55-1.02); TRIGLYCERIDES 189 mg/dL (50-200)
[2019-07-21 06:15] VITALS: BP 104/53
[2019-07-21] MEDS: GABAPENTIN 250 MG/5 ML ORAL SOL PO SCH ×2 (09:42→21:15)
[2019-07-21] MEDS: PAROXETINE 20 MG TABLET PO SCH (09:42)
[2019-07-21] MEDS: BENZONATATE 100 MG CAPSULE PO SCH ×3 (09:42→21:15)
[2019-07-21] MEDS: RISPERIDONE 1 MG TABLET PO SCH ×2 (09:42→21:15)
[2019-07-21] MEDS: SODIUM CHLORIDE FLUSH 10ML SYR IVF SCH ×2 (09:43→21:14)
[2019-07-21] MEDS ORDERED: BENZOCAINE AEROSOL SPRAY 20%, 60ML TP PRN (13:30)
[2019-07-21] MEDS: ONDANSETRON 2MG/ML, 2ML IVPush PRN (15:36)
[2019-07-21] MEDS: ENOXAPARIN 40 MG/0.4 ML SQ SCH (21:15)
[2019-07-22] MEDS: OXYcodone IR 5MG TABLET PO PRN ×4 (00:29→21:49)
[2019-07-22] MEDS: ALBUTEROL/IPRATROPIUM 2.5MG/0.5MG, 3 ML INLINE SCH ×6 (02:41→22:50)
[2019-07-22 04:34] LABS: BASOPHILS # (AUTO) 0.12 x10^3/uL (0-0.1); BASOPHILS % (AUTO) 1 % (0-1); EOSINOPHILS # (AUTO) 1.44 x10^3/uL (0-0.4); EOSINOPHILS % (AUTO) 16 % (1-7); LYMPHOCYTES # (AUTO) 2.16 x10^3/uL (1-3.4); LYMPHOCYTES % (AUTO) 24 % (22-44); MD NO; MEAN CORPUSCULAR HEMOGLOBIN 33.5 pg (27.0-34.8); MEAN CORPUSCULAR HGB CONC 32.3 g/dL (32.4-35.8); MEAN CORPUSCULAR VOLUME 103.6 fL (80-100); MEAN PLATELET VOLUME 7.8 fL (7.4-10.4); MONOCYTES # (AUTO) 0.79 x10^3/uL (0.2-0.8); MONOCYTES % (AUTO) 9 % (2-9); NEUTROPHILS # (AUTO) 4.55 x10^3/uL (1.8-6.8); NEUTROPHILS % (AUTO) 50 % (42-75); PLATELET COUNT 565 x10^3/uL (130-400); RED BLOOD COUNT 2.45 x10^6/uL (3.82-5.3)
[2019-07-22 04:45] LABS: ANION GAP 6 mmol/L (5-15); CALCIUM 8.7 mg/dL (8.5-10.1); CHLORIDE 100 mmol/L (98-107)
[2019-07-22 04:47] LABS: CREATININE 0.33 mg/dL (0.55-1.02)
[2019-07-22 06:00] VITALS: BP 110/62
[2019-07-22] MEDS ORDERED: MAGNESIUM SULFATE PMX 4GM/100M 100 ML IV ONE (08:00)
[2019-07-22] MEDS: SODIUM CHLORIDE FLUSH 10ML SYR IVF SCH ×2 (08:31→21:40)
[2019-07-22] MEDS: PAROXETINE 20 MG TABLET PO SCH (08:58)
[2019-07-22] MEDS: BENZONATATE 100 MG CAPSULE PO SCH ×3 (08:58→21:48)
[2019-07-22] MEDS: GABAPENTIN 250 MG/5 ML ORAL SOL PO SCH ×2 (08:59→23:11)
[2019-07-22] MEDS ORDERED: FUROSEMIDE 20 MG/2 ML IV ONE (09:00)
[2019-07-22] MEDS: ENOXAPARIN 40 MG/0.4 ML SQ SCH (21:49)
[2019-07-23] MEDS: ACETAMINOPHEN 650 MG/20.3 ML UDC PO PRN (01:12)
[2019-07-23] MEDS: OXYcodone IR 5MG TABLET PO PRN ×4 (01:46→20:08)
[2019-07-23] MEDS: ALBUTEROL/IPRATROPIUM 2.5MG/0.5MG, 3 ML INLINE SCH ×7 (02:45→22:25)
[2019-07-23 04:34] LABS: BASOPHILS # (AUTO) 0.07 x10^3/uL (0-0.1); BASOPHILS % (AUTO) 1 % (0-1); EOSINOPHILS # (AUTO) 1.39 x10^3/uL (0-0.4); EOSINOPHILS % (AUTO) 17 % (1-7); LYMPHOCYTES # (AUTO) 2.17 x10^3/uL (1-3.4); LYMPHOCYTES % (AUTO) 26 % (22-44); MD NO; MEAN CORPUSCULAR HEMOGLOBIN 33.5 pg (27.0-34.8); MEAN CORPUSCULAR HGB CONC 32.3 g/dL (32.4-35.8); MEAN PLATELET VOLUME 7.4 fL (7.4-10.4); MONOCYTES # (AUTO) 0.77 x10^3/uL (0.2-0.8); MONOCYTES % (AUTO) 9 % (2-9); NEUTROPHILS # (AUTO) 3.83 x10^3/uL (1.8-6.8); NEUTROPHILS % (AUTO) 47 % (42-75); PLATELET COUNT 656 x10^3/uL (130-400); RED BLOOD COUNT 2.64 x10^6/uL (3.82-5.3)
[2019-07-23 04:36] LABS: ANION GAP 5 mmol/L (5-15); CHLORIDE 98 mmol/L (98-107)
[2019-07-23 04:38] LABS: CREATININE 0.33 mg/dL (0.55-1.02)
[2019-07-23 06:00] VITALS: BP 115/75
[2019-07-23] MEDS ORDERED: MAGNESIUM SULFATE PMX 2GM/50ML 50 ML IV ONE (07:00)
[2019-07-23] MEDS: FENTANYL PF 100 MCG/2ML IVPush PRN (07:19)
[2019-07-23] MEDS: SODIUM CHLORIDE FLUSH 10ML SYR IVF SCH ×2 (10:18→20:02)
[2019-07-23] MEDS: GABAPENTIN 250 MG/5 ML ORAL SOL PO SCH ×2 (10:19→21:38)
[2019-07-23] MEDS: PAROXETINE 20 MG TABLET PO SCH (10:19)
[2019-07-23] MEDS: BENZONATATE 100 MG CAPSULE PO SCH ×2 (10:19→15:18)
[2019-07-23] MEDS ORDERED: DEXAMETHASONE 4 MG/ML, 1ML ONE (18:05)
[2019-07-23] MEDS: DEXAMETHASONE 4 MG/ML, 1ML IVPush SCH ×2 (18:08→23:51)
[2019-07-23] MEDS: ENOXAPARIN 40 MG/0.4 ML SQ SCH (20:08)
[2019-07-24] MEDS: OXYcodone IR 5MG TABLET PO PRN ×5 (01:09→19:35)
[2019-07-24] MEDS: ALBUTEROL/IPRATROPIUM 2.5MG/0.5MG, 3 ML INLINE SCH ×5 (02:20→22:30)
[2019-07-24 04:39] LABS: ANION GAP 3 mmol/L (5-15); CALCIUM 9.3 mg/dL (8.5-10.1); CHLORIDE 97 mmol/L (98-107)
[2019-07-24 04:49] LABS: BASOPHILS # (AUTO) 0.01 x10^3/uL (0-0.1); BASOPHILS % (AUTO) 0 % (0-1); EOSINOPHILS # (AUTO) 0.01 x10^3/uL (0-0.4); EOSINOPHILS % (AUTO) 0 % (1-7); LYMPHOCYTES # (AUTO) 0.92 x10^3/uL (1-3.4); LYMPHOCYTES % (AUTO) 19 % (22-44); MD NO; MEAN CORPUSCULAR HEMOGLOBIN 33.3 pg (27.0-34.8); MEAN CORPUSCULAR HGB CONC 32.3 g/dL (32.4-35.8); MEAN PLATELET VOLUME 7.8 fL (7.4-10.4); MONOCYTES # (AUTO) 0.06 x10^3/uL (0.2-0.8); MONOCYTES % (AUTO) 1 % (2-9); NEUTROPHILS # (AUTO) 3.95 x10^3/uL (1.8-6.8); NEUTROPHILS % (AUTO) 80 % (42-75); PLATELET COUNT 817 x10^3/uL (130-400); RED BLOOD COUNT 3.01 x10^6/uL (3.82-5.3)
[2019-07-24] MEDS: DEXAMETHASONE 4 MG/ML, 1ML IVPush SCH ×4 (05:07→23:58)
[2019-07-24] MEDS ORDERED: MAGNESIUM SULFATE PMX 2GM/50ML 50 ML IV ONE (07:00)
[2019-07-24] MEDS ORDERED: FUROSEMIDE 20 MG/2 ML IV SCH (09:00)
[2019-07-24] MEDS: POTASSIUM CHLORIDE 10% 20 MEQ/15 ML UDC PO SCH (09:31)
[2019-07-24] MEDS: GABAPENTIN 250 MG/5 ML ORAL SOL PO SCH ×2 (09:32→23:07)
[2019-07-24] MEDS: PAROXETINE 20 MG TABLET PO SCH (09:32)
[2019-07-24] MEDS: SODIUM CHLORIDE FLUSH 10ML SYR IVF SCH ×2 (09:32→22:03)
[2019-07-24 11:23] LABS: MICROSCOPIC NOT IND
[2019-07-24 11:31] LABS: CULTURE INDICATED? NO
[2019-07-24] MEDS: LORATADINE 10 MG TABLET PO SCH (12:50)
[2019-07-24] MEDS: hydrOXyzine 10 MG/5 ML ORAL SOL PO PRN (12:51)
[2019-07-24] MEDS: FLUTICASONE NASAL SPRAY 16GM NAS SCH (13:03)
[2019-07-24] MEDS: ENOXAPARIN 40 MG/0.4 ML SQ SCH (22:05)
[2019-07-25] MEDS: OXYcodone IR 5MG TABLET PO PRN ×5 (01:38→18:21)
[2019-07-25] MEDS: ALBUTEROL/IPRATROPIUM 2.5MG/0.5MG, 3 ML INLINE SCH ×6 (02:45→22:33)
[2019-07-25 04:46] LABS: BASOPHILS # (AUTO) 0.05 x10^3/uL (0-0.1); BASOPHILS % (AUTO) 1 % (0-1); EOSINOPHILS # (AUTO) 0.01 x10^3/uL (0-0.4); EOSINOPHILS % (AUTO) 0 % (1-7); LYMPHOCYTES # (AUTO) 1.48 x10^3/uL (1-3.4); LYMPHOCYTES % (AUTO) 21 % (22-44); MD NO; MEAN CORPUSCULAR HEMOGLOBIN 32.8 pg (27.0-34.8); MEAN CORPUSCULAR HGB CONC 32.2 g/dL (32.4-35.8); MEAN CORPUSCULAR VOLUME 101.8 fL (80-100); MEAN PLATELET VOLUME 7.5 fL (7.4-10.4); MONOCYTES # (AUTO) 0.47 x10^3/uL (0.2-0.8); MONOCYTES % (AUTO) 7 % (2-9); NEUTROPHILS # (AUTO) 4.99 x10^3/uL (1.8-6.8); NEUTROPHILS % (AUTO) 71 % (42-75); PLATELET COUNT 860 x10^3/uL (130-400); RED BLOOD COUNT 3.03 x10^6/uL (3.82-5.3); RED CELL DISTRIBUTION WIDTH 14.1 % (9.6-15.2)
[2019-07-25 04:58] LABS: ANION GAP 6 mmol/L (5-15); CALCIUM 9.3 mg/dL (8.5-10.1); CHLORIDE 96 mmol/L (98-107)
[2019-07-25 04:59] LABS: CREATININE 0.45 mg/dL (0.55-1.02)
[2019-07-25] MEDS: DEXAMETHASONE 4 MG/ML, 1ML IVPush SCH ×3 (05:52→17:45)
[2019-07-25] MEDS ORDERED: MAGNESIUM SULFATE PMX 2GM/50ML 50 ML IV ONE (07:00)
[2019-07-25] MEDS: PAROXETINE 20 MG TABLET PO SCH (09:10)
[2019-07-25] MEDS: SODIUM CHLORIDE FLUSH 10ML SYR IVF SCH ×2 (09:11→21:00)
[2019-07-25] MEDS: POTASSIUM CHLORIDE 10% 20 MEQ/15 ML UDC PO SCH (09:11)
[2019-07-25] MEDS: LORATADINE 10 MG TABLET PO SCH (09:11)
[2019-07-25] MEDS: FLUTICASONE NASAL SPRAY 16GM NAS SCH (09:11)
[2019-07-25] MEDS: GABAPENTIN 250 MG/5 ML ORAL SOL PO SCH ×2 (09:12→20:26)
[2019-07-25] MEDS: NICOTINE 14MG/24 HR PATCH.TD24 TD SCH (17:45)
[2019-07-25] MEDS: ENOXAPARIN 40 MG/0.4 ML SQ SCH (20:26)
[2019-07-26] MEDS: OXYcodone IR 5MG TABLET PO PRN (00:29)
[2019-07-26] MEDS: DEXAMETHASONE 4 MG/ML, 1ML IVPush SCH (01:29)
[2019-07-26] MEDS: ALBUTEROL/IPRATROPIUM 2.5MG/0.5MG, 3 ML INLINE SCH ×6 (02:14→23:00)
[2019-07-26 04:28] LABS: ANION GAP 8 mmol/L (5-15); CALCIUM 9.2 mg/dL (8.5-10.1); CHLORIDE 99 mmol/L (98-107); CREATININE 0.48 mg/dL (0.55-1.02)
[2019-07-26 04:48] LABS: BASOPHILS # (AUTO) 0.15 x10^3/uL (0-0.1); BASOPHILS % (AUTO) 2 % (0-1); EOSINOPHILS # (AUTO) 0.01 x10^3/uL (0-0.4); EOSINOPHILS % (AUTO) 0 % (1-7); LYMPHOCYTES # (AUTO) 1.61 x10^3/uL (1-3.4); LYMPHOCYTES % (AUTO) 23 % (22-44); MD NO; MEAN CORPUSCULAR HGB CONC 32.4 g/dL (32.4-35.8); MEAN CORPUSCULAR VOLUME 101.9 fL (80-100); MEAN PLATELET VOLUME 7.7 fL (7.4-10.4); MONOCYTES # (AUTO) 0.65 x10^3/uL (0.2-0.8); MONOCYTES % (AUTO) 9 % (2-9); NEUTROPHILS # (AUTO) 4.57 x10^3/uL (1.8-6.8); NEUTROPHILS % (AUTO) 65 % (42-75); PLATELET COUNT 808 x10^3/uL (130-400); RED CELL DISTRIBUTION WIDTH 14.1 % (9.6-15.2)
[2019-07-26] MEDS: CLINDAMYCIN PMX 600MG/50ML 50 ML IV SCH ×3 (07:35→23:56)
[2019-07-26] MEDS: PAROXETINE 20 MG TABLET PO SCH (10:01)
[2019-07-26] MEDS: POTASSIUM CHLORIDE 10% 20 MEQ/15 ML UDC PO SCH (10:01)
[2019-07-26] MEDS: VANCOMYCIN 50 MG/ML ORAL SUSP PO SCH ×2 (10:01→20:24)
[2019-07-26] MEDS: GABAPENTIN 250 MG/5 ML ORAL SOL PO SCH ×2 (10:01→20:24)
[2019-07-26] MEDS: LORATADINE 10 MG TABLET PO SCH (10:01)
[2019-07-26] MEDS: SODIUM CHLORIDE FLUSH 10ML SYR IVF SCH ×2 (10:02→20:26)
[2019-07-26] MEDS: FLUTICASONE NASAL SPRAY 16GM NAS SCH (10:02)
[2019-07-26] MEDS: NICOTINE 14MG/24 HR PATCH.TD24 TD SCH (16:19)
[2019-07-26] MEDS: ENOXAPARIN 40 MG/0.4 ML SQ SCH (20:25)
[2019-07-27] MEDS: ALBUTEROL/IPRATROPIUM 2.5MG/0.5MG, 3 ML INLINE SCH ×6 (02:39→23:25)
[2019-07-27] MEDS: OXYcodone IR 5MG TABLET PO PRN ×4 (03:47→21:15)
[2019-07-27 04:24] LABS: BASOPHILS # (AUTO) 0.06 x10^3/uL (0-0.1); BASOPHILS % (AUTO) 1 % (0-1); EOSINOPHILS # (AUTO) 0.19 x10^3/uL (0-0.4); EOSINOPHILS % (AUTO) 3 % (1-7); LYMPHOCYTES % (AUTO) 43 % (22-44); MD NO; MEAN CORPUSCULAR HEMOGLOBIN 32.8 pg (27.0-34.8); MEAN CORPUSCULAR HGB CONC 32.3 g/dL (32.4-35.8); MEAN CORPUSCULAR VOLUME 101.6 fL (80-100); MEAN PLATELET VOLUME 6.9 fL (7.4-10.4); MONOCYTES # (AUTO) 0.88 x10^3/uL (0.2-0.8); MONOCYTES % (AUTO) 12 % (2-9); NEUTROPHILS # (AUTO) 3.19 x10^3/uL (1.8-6.8); NEUTROPHILS % (AUTO) 42 % (42-75); PLATELET COUNT 551 x10^3/uL (130-400); RED BLOOD COUNT 2.91 x10^6/uL (3.82-5.3); RED CELL DISTRIBUTION WIDTH 14.3 % (9.6-15.2)
[2019-07-27 04:37] LABS: ANION GAP 5 mmol/L (5-15); CALCIUM 8.6 mg/dL (8.5-10.1); CHLORIDE 101 mmol/L (98-107); CREATININE 0.41 mg/dL (0.55-1.02)
[2019-07-27] MEDS: FENTANYL PF 100 MCG/2ML IVPush PRN (06:28)
[2019-07-27] MEDS: CLINDAMYCIN PMX 600MG/50ML 50 ML IV SCH ×3 (06:43→22:56)
[2019-07-27] MEDS ORDERED: MAGNESIUM SULFATE PMX 2GM/50ML 50 ML IV ONE (07:00)
[2019-07-27] MEDS: hydrOXyzine 10 MG/5 ML ORAL SOL PO PRN (09:04)
[2019-07-27] MEDS: POTASSIUM CHLORIDE 10% 20 MEQ/15 ML UDC PO SCH (09:04)
[2019-07-27] MEDS: SODIUM CHLORIDE FLUSH 10ML SYR IVF SCH ×2 (09:05→21:13)
[2019-07-27] MEDS: GABAPENTIN 250 MG/5 ML ORAL SOL PO SCH ×2 (09:05→21:13)
[2019-07-27] MEDS: LORATADINE 10 MG TABLET PO SCH (09:05)
[2019-07-27] MEDS: FLUTICASONE NASAL SPRAY 16GM NAS SCH (09:05)
[2019-07-27] MEDS: PAROXETINE 20 MG TABLET PO SCH (09:05)
[2019-07-27] MEDS: VANCOMYCIN 50 MG/ML ORAL SUSP PO SCH ×2 (09:06→21:14)
[2019-07-27] MEDS: NICOTINE 14MG/24 HR PATCH.TD24 TD SCH (16:12)
[2019-07-27] MEDS ORDERED: OXYcodone 5 MG/5 ML ORAL.SOL UDC ONE (21:02)
[2019-07-27] MEDS: ENOXAPARIN 40 MG/0.4 ML SQ SCH (21:13)
[2019-07-27] MEDS: CALCIUM CARBONATE 500 MG TAB.CHEW PO PRN (23:10)
[2019-07-28] MEDS: OXYcodone IR 5MG TABLET PO PRN ×4 (01:24→20:57)
[2019-07-28] MEDS: ALBUTEROL/IPRATROPIUM 2.5MG/0.5MG, 3 ML INLINE SCH ×6 (03:00→23:22)
[2019-07-28] MEDS: ACETAMINOPHEN 650 MG/20.3 ML UDC PO PRN ×3 (04:21→23:00)
[2019-07-28 04:24] LABS: BASOPHILS # (AUTO) 0.12 x10^3/uL (0-0.1); BASOPHILS % (AUTO) 1 % (0-1); EOSINOPHILS # (AUTO) 0.79 x10^3/uL (0-0.4); EOSINOPHILS % (AUTO) 8 % (1-7); LYMPHOCYTES # (AUTO) 3.26 x10^3/uL (1-3.4); LYMPHOCYTES % (AUTO) 31 % (22-44); MD NO; MEAN CORPUSCULAR HGB CONC 32.7 g/dL (32.4-35.8); MEAN PLATELET VOLUME 7.2 fL (7.4-10.4); MONOCYTES # (AUTO) 0.95 x10^3/uL (0.2-0.8); MONOCYTES % (AUTO) 9 % (2-9); NEUTROPHILS # (AUTO) 5.29 x10^3/uL (1.8-6.8); NEUTROPHILS % (AUTO) 51 % (42-75); PLATELET COUNT 682 x10^3/uL (130-400); RED BLOOD COUNT 3.24 x10^6/uL (3.82-5.3); RED CELL DISTRIBUTION WIDTH 14.3 % (9.6-15.2)
[2019-07-28 04:35] LABS: ANION GAP 8 mmol/L (5-15); CHLORIDE 101 mmol/L (98-107)
[2019-07-28 04:36] LABS: CREATININE 0.37 mg/dL (0.55-1.02)
[2019-07-28] MEDS: CLINDAMYCIN PMX 600MG/50ML 50 ML IV SCH ×3 (06:17→23:05)
[2019-07-28] MEDS ORDERED: MAALOX/HYOSCYAMINE/LIDOCAINE 45 ML BTL PO PRN (07:30)
[2019-07-28] MEDS: PANTOPRAZOLE 40 MG IV IVPush SCH (10:09)
[2019-07-28] MEDS: SODIUM CHLORIDE FLUSH 10ML SYR IVF SCH ×2 (10:09→23:00)
[2019-07-28] MEDS: POTASSIUM CHLORIDE 10% 20 MEQ/15 ML UDC PO SCH (10:09)
[2019-07-28] MEDS: PAROXETINE 20 MG TABLET PO SCH (10:10)
[2019-07-28] MEDS: LORATADINE 10 MG TABLET PO SCH (10:10)
[2019-07-28] MEDS: FLUTICASONE NASAL SPRAY 16GM NAS SCH (10:11)
[2019-07-28] MEDS: GABAPENTIN 250 MG/5 ML ORAL SOL PO SCH ×2 (10:11→20:53)
[2019-07-28] MEDS: VANCOMYCIN 50 MG/ML ORAL SUSP PO SCH ×2 (10:12→20:53)
[2019-07-28] MEDS: NICOTINE 14MG/24 HR PATCH.TD24 TD SCH (16:46)
[2019-07-28] MEDS: ENOXAPARIN 40 MG/0.4 ML SQ SCH (20:52)
[2019-07-28] MEDS: DOXEPIN 25 MG CAPSULE PO SCH (20:53)
[2019-07-29] MEDS: OXYcodone IR 5MG TABLET PO PRN ×4 (01:49→20:45)
[2019-07-29] MEDS: ALBUTEROL/IPRATROPIUM 2.5MG/0.5MG, 3 ML INLINE SCH ×6 (02:47→23:40)
[2019-07-29] MEDS: CLINDAMYCIN PMX 600MG/50ML 50 ML IV SCH ×2 (06:51→16:33)
[2019-07-29] MEDS: SODIUM CHLORIDE FLUSH 10ML SYR IVF SCH ×2 (09:37→20:43)
[2019-07-29] MEDS: PANTOPRAZOLE 40 MG IV IVPush SCH (09:39)
[2019-07-29] MEDS: POTASSIUM CHLORIDE 10% 20 MEQ/15 ML UDC PO SCH (09:39)
[2019-07-29] MEDS: VANCOMYCIN 50 MG/ML ORAL SUSP PO SCH ×2 (09:39→22:59)
[2019-07-29] MEDS: FLUTICASONE NASAL SPRAY 16GM NAS SCH (09:39)
[2019-07-29] MEDS: DOXEPIN 25 MG CAPSULE PO SCH ×3 (09:40→20:41)
[2019-07-29] MEDS: LORATADINE 10 MG TABLET PO SCH (09:40)
[2019-07-29] MEDS: PAROXETINE 20 MG TABLET PO SCH (09:40)
[2019-07-29] MEDS: GABAPENTIN 250 MG/5 ML ORAL SOL PO SCH ×2 (09:40→20:42)
[2019-07-29] MEDS ORDERED: SODIUM CHLORIDE NASAL SPRAY 45ML BOTTLE NAS PRN (11:00)
[2019-07-29] MEDS: NICOTINE 14MG/24 HR PATCH.TD24 TD SCH (16:33)
[2019-07-29 19:10] VITALS: BP 116/73
[2019-07-29] MEDS: ENOXAPARIN 40 MG/0.4 ML SQ SCH (20:43)
[2019-07-30 01:03] VITALS: BP 123/82
[2019-07-30] MEDS: OXYcodone IR 5MG TABLET PO PRN ×4 (01:16→21:30)
[2019-07-30] MEDS: CLINDAMYCIN PMX 600MG/50ML 50 ML IV SCH ×3 (01:30→18:02)
[2019-07-30] MEDS: ALBUTEROL/IPRATROPIUM 2.5MG/0.5MG, 3 ML INLINE SCH ×5 (06:00→22:00)
[2019-07-30 07:23] VITALS: BP 110/72
[2019-07-30] MEDS: FLUTICASONE NASAL SPRAY 16GM NAS SCH (09:00)
[2019-07-30] MEDS: GABAPENTIN 250 MG/5 ML ORAL SOL PO SCH ×2 (09:00→21:30)
[2019-07-30] MEDS: POTASSIUM CHLORIDE 10% 20 MEQ/15 ML UDC PO SCH (09:00)
[2019-07-30] MEDS: VANCOMYCIN 50 MG/ML ORAL SUSP PO SCH ×2 (09:00→21:30)
[2019-07-30] MEDS: PANTOPRAZOLE 40 MG IV IVPush SCH (09:13)
[2019-07-30] MEDS: SODIUM CHLORIDE FLUSH 10ML SYR IVF SCH ×2 (09:13→21:30)
[2019-07-30] MEDS: LORATADINE 10 MG TABLET PO SCH (09:34)
[2019-07-30] MEDS: PAROXETINE 20 MG TABLET PO SCH (09:35)
[2019-07-30] MEDS: DOXEPIN 25 MG CAPSULE PO SCH ×3 (09:35→21:30)
[2019-07-30 11:46] LABS: BASOPHILS # (AUTO) 0.05 x10^3/uL (0-0.1); BASOPHILS % (AUTO) 1 % (0-1); EOSINOPHILS # (AUTO) 0.37 x10^3/uL (0-0.4); EOSINOPHILS % (AUTO) 4 % (1-7); LYMPHOCYTES # (AUTO) 2.81 x10^3/uL (1-3.4); LYMPHOCYTES % (AUTO) 31 % (22-44); MD NO; MEAN CORPUSCULAR HEMOGLOBIN 33.4 pg (27.0-34.8); MEAN CORPUSCULAR HGB CONC 33.1 g/dL (32.4-35.8); MEAN CORPUSCULAR VOLUME 100.9 fL (80-100); MEAN PLATELET VOLUME 7.1 fL (7.4-10.4); MONOCYTES # (AUTO) 0.74 x10^3/uL (0.2-0.8); MONOCYTES % (AUTO) 8 % (2-9); NEUTROPHILS # (AUTO) 5.26 x10^3/uL (1.8-6.8); NEUTROPHILS % (AUTO) 57 % (42-75); PLATELET COUNT 518 x10^3/uL (130-400); RED BLOOD COUNT 3.19 x10^6/uL (3.82-5.3); RED CELL DISTRIBUTION WIDTH 14.4 % (9.6-15.2)
[2019-07-30 11:55] LABS: ANION GAP 7 mmol/L (5-15); CALCIUM 8.5 mg/dL (8.5-10.1); CHLORIDE 100 mmol/L (98-107)
[2019-07-30 11:56] LABS: CREATININE 0.49 mg/dL (0.55-1.02)
[2019-07-30] MEDS ORDERED: LORazepam 2 MG/ML, 1ML IVPush ONE (15:00)
[2019-07-30 15:50] VITALS: BP 112/67
[2019-07-30] MEDS: NICOTINE 14MG/24 HR PATCH.TD24 TD SCH (17:00)
[2019-07-30 19:57] VITALS: BP 100/69
[2019-07-30] MEDS: ENOXAPARIN 40 MG/0.4 ML SQ SCH (21:30)
[2019-07-30] MEDS: TEMAZEPAM 15 MG CAPSULE PO SCH (21:30)
[2019-07-31 00:39] VITALS: BP 118/85
[2019-07-31] MEDS: CLINDAMYCIN PMX 600MG/50ML 50 ML IV SCH ×3 (01:19→17:37)
[2019-07-31] MEDS: OXYcodone IR 5MG TABLET PO PRN ×2 (05:13→22:21)
[2019-07-31] MEDS: ALBUTEROL/IPRATROPIUM 2.5MG/0.5MG, 3 ML INLINE SCH ×5 (07:21→23:10)
[2019-07-31 08:00] VITALS: BP 102/65
[2019-07-31] MEDS ORDERED: CETIRIZINE 1 MG/ML ORAL SOL PO SCH (09:00)
[2019-07-31] MEDS: FLUTICASONE NASAL SPRAY 16GM NAS SCH (09:00)
[2019-07-31] MEDS: SODIUM CHLORIDE FLUSH 10ML SYR IVF SCH ×2 (09:12→20:46)
[2019-07-31] MEDS: DOXEPIN 25 MG CAPSULE PO SCH ×3 (09:12→20:42)
[2019-07-31] MEDS: PAROXETINE 20 MG TABLET PO SCH (09:12)
[2019-07-31] MEDS: GABAPENTIN 250 MG/5 ML ORAL SOL PO SCH ×2 (09:13→20:44)
[2019-07-31] MEDS: VANCOMYCIN 50 MG/ML ORAL SUSP PO SCH ×2 (09:13→20:42)
--- NOTE | 2019-07-31 13:01 | NUR ---
PING/ BLAISE -Small sips -[facility] -Up at 90 -Meds crushed Addendum: 07/31/19 at [address] Amended: Links added.
[2019-07-31 14:39] VITALS: BP 102/68
[2019-07-31] MEDS: NICOTINE 14MG/24 HR PATCH.TD24 TD SCH (17:01)
[2019-07-31 20:21] VITALS: BP 110/74
[2019-07-31] MEDS: TEMAZEPAM 15 MG CAPSULE PO SCH (20:42)
[2019-07-31] MEDS: ENOXAPARIN 40 MG/0.4 ML SQ SCH (20:44)
[2019-08-01] MEDS: CLINDAMYCIN PMX 600MG/50ML 50 ML IV SCH ×3 (01:13→16:47)
[2019-08-01 02:44] VITALS: BP 114/72
[2019-08-01] MEDS: ALBUTEROL/IPRATROPIUM 2.5MG/0.5MG, 3 ML INLINE SCH (06:00)
[2019-08-01] MEDS: OXYcodone IR 5MG TABLET PO PRN ×2 (06:17→11:52)
[2019-08-01 06:18] LABS: BASOPHILS % (AUTO) 1 % (0-1); EOSINOPHILS # (AUTO) 0.28 x10^3/uL (0-0.4); EOSINOPHILS % (AUTO) 3 % (1-7); LYMPHOCYTES # (AUTO) 3.33 x10^3/uL (1-3.4); LYMPHOCYTES % (AUTO) 30 % (22-44); MD NO; MEAN CORPUSCULAR HEMOGLOBIN 32.2 pg (27.0-34.8); MEAN CORPUSCULAR HGB CONC 31.9 g/dL (32.4-35.8); MEAN CORPUSCULAR VOLUME 100.9 fL (80-100); MEAN PLATELET VOLUME 7.7 fL (7.4-10.4); MONOCYTES # (AUTO) 0.72 x10^3/uL (0.2-0.8); MONOCYTES % (AUTO) 7 % (2-9); NEUTROPHILS # (AUTO) 6.55 x10^3/uL (1.8-6.8); NEUTROPHILS % (AUTO) 60 % (42-75); PLATELET COUNT 418 x10^3/uL (130-400); RED BLOOD COUNT 3.41 x10^6/uL (3.82-5.3); RED CELL DISTRIBUTION WIDTH 14.6 % (9.6-15.2)
[2019-08-01 06:20] LABS: ANION GAP 7 mmol/L (5-15); CALCIUM 8.9 mg/dL (8.5-10.1); CHLORIDE 103 mmol/L (98-107); CREATININE 0.46 mg/dL (0.55-1.02)
[2019-08-01 07:37] VITALS: BP 104/67
[2019-08-01] MEDS ORDERED: ALBUTEROL/IPRATROPIUM 2.5MG/0.5MG, 3 ML INLINE PRN (08:00)
[2019-08-01] MEDS: CETIRIZINE 1 MG/ML ORAL SOL PO SCH (08:57)
[2019-08-01] MEDS: GABAPENTIN 250 MG/5 ML ORAL SOL PO SCH ×2 (08:57→21:00)
[2019-08-01] MEDS: SODIUM CHLORIDE FLUSH 10ML SYR IVF SCH ×2 (08:57→21:00)
[2019-08-01] MEDS: PAROXETINE 20 MG TABLET PO SCH (08:58)
[2019-08-01] MEDS: VANCOMYCIN 50 MG/ML ORAL SUSP PO SCH ×2 (08:58→21:01)
[2019-08-01] MEDS: FLUTICASONE NASAL SPRAY 16GM NAS SCH (08:58)
[2019-08-01] MEDS: DOXEPIN 25 MG CAPSULE PO SCH ×3 (08:58→21:00)
[2019-08-01] MEDS: ONDANSETRON 2MG/ML, 2ML IVPush PRN (11:52)
[2019-08-01 13:27] VITALS: BP 105/71
[2019-08-01] MEDS: NICOTINE 14MG/24 HR PATCH.TD24 TD SCH (16:46)
[2019-08-01 19:57] VITALS: BP 100/66
[2019-08-01] MEDS: TEMAZEPAM 15 MG CAPSULE PO SCH (21:00)
[2019-08-01] MEDS: ENOXAPARIN 40 MG/0.4 ML SQ SCH (21:01)
[2019-08-02 00:49] VITALS: BP 115/76
[2019-08-02] MEDS: CLINDAMYCIN PMX 600MG/50ML 50 ML IV SCH ×3 (01:11→17:05)
[2019-08-02 05:40] LABS: BASOPHILS # (AUTO) 0.14 x10^3/uL (0-0.1); BASOPHILS % (AUTO) 1 % (0-1); EOSINOPHILS # (AUTO) 0.26 x10^3/uL (0-0.4); EOSINOPHILS % (AUTO) 2 % (1-7); LYMPHOCYTES # (AUTO) 3.13 x10^3/uL (1-3.4); LYMPHOCYTES % (AUTO) 26 % (22-44); MD NO; MEAN CORPUSCULAR HGB CONC 32.6 g/dL (32.4-35.8); MEAN CORPUSCULAR VOLUME 101.2 fL (80-100); MEAN PLATELET VOLUME 7.4 fL (7.4-10.4); MONOCYTES # (AUTO) 0.81 x10^3/uL (0.2-0.8); MONOCYTES % (AUTO) 7 % (2-9); NEUTROPHILS # (AUTO) 7.63 x10^3/uL (1.8-6.8); NEUTROPHILS % (AUTO) 64 % (42-75); PLATELET COUNT 380 x10^3/uL (130-400); RED CELL DISTRIBUTION WIDTH 14.2 % (9.6-15.2)
[2019-08-02 08:00] VITALS: BP 126/72
[2019-08-02] MEDS: VANCOMYCIN 50 MG/ML ORAL SUSP PO SCH ×2 (08:20→21:01)
[2019-08-02] MEDS: GABAPENTIN 250 MG/5 ML ORAL SOL PO SCH ×2 (08:20→21:01)
[2019-08-02] MEDS: FLUTICASONE NASAL SPRAY 16GM NAS SCH (08:20)
[2019-08-02] MEDS: SODIUM CHLORIDE FLUSH 10ML SYR IVF SCH ×2 (08:20→21:00)
[2019-08-02] MEDS: CETIRIZINE 1 MG/ML ORAL SOL PO SCH (08:20)
[2019-08-02] MEDS: PAROXETINE 20 MG TABLET PO SCH (08:21)
[2019-08-02] MEDS: DOXEPIN 25 MG CAPSULE PO SCH ×3 (08:21→21:00)
[2019-08-02] MEDS: ONDANSETRON 2MG/ML, 2ML IVPush PRN (09:10)
[2019-08-02] MEDS: OXYcodone IR 5MG TABLET PO PRN ×3 (09:12→21:02)
[2019-08-02] MEDS: CALCIUM CARBONATE 500 MG TAB.CHEW PO PRN ×2 (09:14→17:19)
[2019-08-02 16:44] VITALS: BP 108/72
[2019-08-02] MEDS: NICOTINE 14MG/24 HR PATCH.TD24 TD SCH (17:04)
[2019-08-02 19:24] VITALS: BP 100/69
[2019-08-02] MEDS: ENOXAPARIN 40 MG/0.4 ML SQ SCH (21:00)
[2019-08-02] MEDS: LACTOBACILLUS CHEW TABLET PO SCH (21:00)
[2019-08-02] MEDS ORDERED: CLINDAMYCIN PMX 600MG/50ML 50 ML IV SCH (23:00)
[2019-08-03] MEDS: OXYcodone IR 5MG TABLET PO PRN ×3 (01:45→13:23)
[2019-08-03 01:56] VITALS: BP 95/68
[2019-08-03 06:45] LABS: BASOPHILS # (AUTO) 0.02 x10^3/uL (0-0.1); BASOPHILS % (AUTO) 0 % (0-1); EOSINOPHILS % (AUTO) 2 % (1-7); LYMPHOCYTES # (AUTO) 2.98 x10^3/uL (1-3.4); LYMPHOCYTES % (AUTO) 27 % (22-44); MD NO; MEAN CORPUSCULAR HEMOGLOBIN 32.3 pg (27.0-34.8); MEAN CORPUSCULAR HGB CONC 32.1 g/dL (32.4-35.8); MEAN CORPUSCULAR VOLUME 100.5 fL (80-100); MEAN PLATELET VOLUME 7.1 fL (7.4-10.4); MONOCYTES # (AUTO) 0.72 x10^3/uL (0.2-0.8); MONOCYTES % (AUTO) 6 % (2-9); NEUTROPHILS # (AUTO) 7.26 x10^3/uL (1.8-6.8); NEUTROPHILS % (AUTO) 65 % (42-75); PLATELET COUNT 325 x10^3/uL (130-400); RED BLOOD COUNT 3.34 x10^6/uL (3.82-5.3); RED CELL DISTRIBUTION WIDTH 14.4 % (9.6-15.2)
[2019-08-03 06:57] LABS: ALBUMIN 2.7 g/dL (3.4-5.0); ANION GAP 8 mmol/L (5-15); CALCIUM 8.7 mg/dL (8.5-10.1); CHLORIDE 102 mmol/L (98-107)
[2019-08-03 07:02] LABS: ALANINE AMINOTRANSFERASE 34 U/L (12-78); ALKALINE PHOSPHATASE 70 U/L (45-117); BILIRUBIN,TOTAL 0.3 mg/dL (0.2-1.0); CREATININE 0.48 mg/dL (0.55-1.02)
[2019-08-03 07:10] VITALS: BP 103/67
[2019-08-03] MEDS ORDERED: MAGNESIUM SULFATE PMX 2GM/50ML 50 ML IV ONE (08:00)
[2019-08-03] MEDS: VANCOMYCIN 50 MG/ML ORAL SUSP PO SCH ×2 (08:08→23:30)
[2019-08-03] MEDS: GABAPENTIN 250 MG/5 ML ORAL SOL PO SCH ×2 (08:08→20:31)
[2019-08-03] MEDS: CETIRIZINE 1 MG/ML ORAL SOL PO SCH (08:08)
[2019-08-03] MEDS: DOXEPIN 25 MG CAPSULE PO SCH ×3 (08:11→20:22)
[2019-08-03] MEDS: CALCIUM CARBONATE 500 MG TAB.CHEW PO PRN ×3 (08:13→20:22)
[2019-08-03] MEDS: LACTOBACILLUS CHEW TABLET PO SCH ×3 (08:15→20:22)
[2019-08-03] MEDS: PAROXETINE 20 MG TABLET PO SCH (08:16)
[2019-08-03] MEDS: FLUTICASONE NASAL SPRAY 16GM NAS SCH (08:18)
[2019-08-03] MEDS: SODIUM CHLORIDE FLUSH 10ML SYR IVF SCH ×2 (08:18→20:32)
[2019-08-03 14:06] VITALS: BP 110/72
[2019-08-03] MEDS: NICOTINE 14MG/24 HR PATCH.TD24 TD SCH (16:07)
[2019-08-03 20:05] VITALS: BP 106/70
[2019-08-03] MEDS: ENOXAPARIN 40 MG/0.4 ML SQ SCH (20:32)
[2019-08-04 01:10] VITALS: BP 97/67
[2019-08-04] MEDS: OMEPRAZOLE 20 MG CAPSULE.DR PO SCH (05:54)
[2019-08-04 05:57] VITALS: BP 100/68
[2019-08-04] MEDS: OXYcodone IR 5MG TABLET PO PRN ×3 (06:11→20:59)
[2019-08-04 06:54] LABS: BASOPHILS # (AUTO) 0.07 x10^3/uL (0-0.1); BASOPHILS % (AUTO) 1 % (0-1); EOSINOPHILS % (AUTO) 2 % (1-7); LYMPHOCYTES # (AUTO) 2.41 x10^3/uL (1-3.4); LYMPHOCYTES % (AUTO) 20 % (22-44); MD NO; MEAN CORPUSCULAR HEMOGLOBIN 32.5 pg (27.0-34.8); MEAN CORPUSCULAR HGB CONC 32.2 g/dL (32.4-35.8); MEAN CORPUSCULAR VOLUME 100.7 fL (80-100); MEAN PLATELET VOLUME 7.5 fL (7.4-10.4); MONOCYTES # (AUTO) 0.57 x10^3/uL (0.2-0.8); MONOCYTES % (AUTO) 5 % (2-9); NEUTROPHILS # (AUTO) 8.87 x10^3/uL (1.8-6.8); NEUTROPHILS % (AUTO) 73 % (42-75); PLATELET COUNT 346 x10^3/uL (130-400); RED CELL DISTRIBUTION WIDTH 14.4 % (9.6-15.2)
[2019-08-04 07:05] LABS: ANION GAP 9 mmol/L (5-15); CHLORIDE 106 mmol/L (98-107); CREATININE 0.58 mg/dL (0.55-1.02)
[2019-08-04] MEDS: MAGNESIUM OXIDE 400 MG TABLET PO SCH (08:28)
[2019-08-04] MEDS: LACTOBACILLUS CHEW TABLET PO SCH ×3 (08:28→20:58)
[2019-08-04] MEDS: DOXEPIN 25 MG CAPSULE PO SCH ×3 (08:28→20:58)
[2019-08-04] MEDS: GABAPENTIN 250 MG/5 ML ORAL SOL PO SCH ×2 (08:30→21:00)
[2019-08-04] MEDS: SODIUM CHLORIDE FLUSH 10ML SYR IVF SCH ×2 (08:30→20:58)
[2019-08-04] MEDS: VANCOMYCIN 50 MG/ML ORAL SUSP PO SCH ×2 (08:30→20:59)
[2019-08-04] MEDS: FLUTICASONE NASAL SPRAY 16GM NAS SCH (08:31)
[2019-08-04] MEDS: CETIRIZINE 1 MG/ML ORAL SOL PO SCH (08:31)
[2019-08-04] MEDS: PAROXETINE 20 MG TABLET PO SCH (08:31)
[2019-08-04 13:33] VITALS: BP 111/75
[2019-08-04] MEDS: NICOTINE 14MG/24 HR PATCH.TD24 TD SCH (16:33)
[2019-08-04 19:57] VITALS: BP 113/77
[2019-08-04] MEDS: ENOXAPARIN 40 MG/0.4 ML SQ SCH (20:58)
[2019-08-05 00:40] VITALS: BP 107/71
[2019-08-05] MEDS: OMEPRAZOLE 20 MG CAPSULE.DR PO SCH (04:33)
[2019-08-05] MEDS: OXYcodone IR 5MG TABLET PO PRN ×3 (04:34→21:38)
[2019-08-05 05:22] LABS: ALBUMIN 2.8 g/dL (3.4-5.0); ANION GAP 10 mmol/L (5-15); CALCIUM 9.4 mg/dL (8.5-10.1); CHLORIDE 104 mmol/L (98-107); CREATININE 0.52 mg/dL (0.55-1.02)
[2019-08-05 05:23] LABS: BASOPHILS # (AUTO) 0.07 x10^3/uL (0-0.1); BASOPHILS % (AUTO) 1 % (0-1); EOSINOPHILS # (AUTO) 0.25 x10^3/uL (0-0.4); EOSINOPHILS % (AUTO) 2 % (1-7); LYMPHOCYTES # (AUTO) 3.04 x10^3/uL (1-3.4); LYMPHOCYTES % (AUTO) 27 % (22-44); MD NO; MEAN CORPUSCULAR HEMOGLOBIN 32.9 pg (27.0-34.8); MEAN CORPUSCULAR HGB CONC 32.7 g/dL (32.4-35.8); MEAN CORPUSCULAR VOLUME 100.5 fL (80-100); MEAN PLATELET VOLUME 7.3 fL (7.4-10.4); MONOCYTES # (AUTO) 0.79 x10^3/uL (0.2-0.8); MONOCYTES % (AUTO) 7 % (2-9); NEUTROPHILS # (AUTO) 7.35 x10^3/uL (1.8-6.8); NEUTROPHILS % (AUTO) 64 % (42-75); PLATELET COUNT 322 x10^3/uL (130-400); RED BLOOD COUNT 3.41 x10^6/uL (3.82-5.3); RED CELL DISTRIBUTION WIDTH 14.6 % (9.6-15.2)
[2019-08-05 06:50] VITALS: BP 102/68
[2019-08-05] MEDS: FLUTICASONE NASAL SPRAY 16GM NAS SCH ×2 (10:58→11:12)
[2019-08-05] MEDS: SODIUM CHLORIDE FLUSH 10ML SYR IVF SCH ×2 (10:58→21:39)
[2019-08-05] MEDS: DOXEPIN 25 MG CAPSULE PO SCH ×3 (10:59→21:38)
[2019-08-05] MEDS: PAROXETINE 20 MG TABLET PO SCH (11:00)
[2019-08-05] MEDS: GABAPENTIN 250 MG/5 ML ORAL SOL PO SCH ×2 (11:00→21:37)
[2019-08-05] MEDS: LACTOBACILLUS CHEW TABLET PO SCH ×3 (11:00→21:38)
[2019-08-05] MEDS: MAGNESIUM OXIDE 400 MG TABLET PO SCH (11:00)
[2019-08-05] MEDS: VANCOMYCIN 50 MG/ML ORAL SUSP PO SCH ×2 (11:00→21:37)
[2019-08-05] MEDS: CETIRIZINE 1 MG/ML ORAL SOL PO SCH (11:00)
[2019-08-05 12:41] VITALS: BP 107/72
[2019-08-05] MEDS ORDERED: MAGNESIUM SULFATE PMX 2GM/50ML 50 ML IV ONE (14:00)
--- NOTE | 2019-08-05 14:50 | NUR ---
NURSING ACTIVITY SHEET REVIEWED WITH PATIENT AND RN 1. UP IN CHAIR FOR ALL MEALS. 2. AMBULATE 3X'S A DAY WITH NURSING OR THERAPY STAFF. 3. EXERCISES PER HANDOUTS Addendum: 08/05/19 at 1604 by WILFRED MUKHERJEE PTA Amended: Links added.
[2019-08-05] MEDS: NICOTINE 14MG/24 HR PATCH.TD24 TD SCH (16:41)
[2019-08-05 19:00] VITALS: BP 97/61
[2019-08-05] MEDS: ENOXAPARIN 40 MG/0.4 ML SQ SCH (21:37)
[2019-08-06 01:54] VITALS: BP 130/88
[2019-08-06] MEDS: OMEPRAZOLE 20 MG CAPSULE.DR PO SCH (04:39)
[2019-08-06] MEDS: OXYcodone IR 5MG TABLET PO PRN ×4 (04:39→21:37)
[2019-08-06 06:16] LABS: BASOPHILS # (AUTO) 0.08 x10^3/uL (0-0.1); BASOPHILS % (AUTO) 1 % (0-1); EOSINOPHILS # (AUTO) 0.24 x10^3/uL (0-0.4); EOSINOPHILS % (AUTO) 2 % (1-7); LYMPHOCYTES # (AUTO) 2.66 x10^3/uL (1-3.4); LYMPHOCYTES % (AUTO) 24 % (22-44); MD NO; MEAN CORPUSCULAR HEMOGLOBIN 32.6 pg (27.0-34.8); MEAN CORPUSCULAR HGB CONC 32.7 g/dL (32.4-35.8); MEAN CORPUSCULAR VOLUME 99.8 fL (80-100); MONOCYTES # (AUTO) 0.74 x10^3/uL (0.2-0.8); MONOCYTES % (AUTO) 7 % (2-9); NEUTROPHILS # (AUTO) 7.28 x10^3/uL (1.8-6.8); NEUTROPHILS % (AUTO) 66 % (42-75); PLATELET COUNT 313 x10^3/uL (130-400); RED CELL DISTRIBUTION WIDTH 14.7 % (9.6-15.2)
[2019-08-06 06:27] LABS: ALBUMIN 2.7 g/dL (3.4-5.0); ANION GAP 9 mmol/L (5-15); CALCIUM 8.6 mg/dL (8.5-10.1); CHLORIDE 103 mmol/L (98-107)
[2019-08-06 06:30] LABS: CREATININE 0.58 mg/dL (0.55-1.02)
[2019-08-06 07:30] VITALS: BP 111/77
[2019-08-06] MEDS ORDERED: MAGNESIUM SULFATE PMX 2GM/50ML 50 ML IV ONE (08:00)
[2019-08-06] MEDS: DOXEPIN 25 MG CAPSULE PO SCH ×3 (10:21→21:37)
[2019-08-06] MEDS: LACTOBACILLUS CHEW TABLET PO SCH ×3 (10:21→21:36)
[2019-08-06] MEDS: GABAPENTIN 250 MG/5 ML ORAL SOL PO SCH (10:21)
[2019-08-06] MEDS: MULTIVITS,STRESS FORMULA 1 TABLET PO SCH (10:21)
[2019-08-06] MEDS: ASCORBIC ACID 500 MG TABLET PO SCH ×2 (10:21→17:15)
[2019-08-06] MEDS: VANCOMYCIN 50 MG/ML ORAL SUSP PO SCH ×2 (10:21→21:43)
[2019-08-06] MEDS: CETIRIZINE 1 MG/ML ORAL SOL PO SCH (10:21)
[2019-08-06] MEDS: FLUTICASONE NASAL SPRAY 16GM NAS SCH (10:22)
[2019-08-06] MEDS: MAGNESIUM OXIDE 400 MG TABLET PO SCH (10:22)
[2019-08-06] MEDS: PAROXETINE 20 MG TABLET PO SCH (10:22)
[2019-08-06] MEDS: SODIUM CHLORIDE FLUSH 10ML SYR IVF SCH ×2 (10:23→21:43)
[2019-08-06 12:38] VITALS: BP 100/67
[2019-08-06] MEDS ORDERED: CHOLECALCIFEROL 400 UNITS/ML ORAL SOL PO SCH (16:30)
[2019-08-06] MEDS: NICOTINE 14MG/24 HR PATCH.TD24 TD SCH (17:15)
[2019-08-06] MEDS: CHOLECALCIFEROL 400 UNITS TABLET PO SCH (17:15)
[2019-08-06 19:40] VITALS: BP 105/71
[2019-08-06] MEDS: GABAPENTIN 100 MG CAPSULE PO SCH (21:37)
[2019-08-06] MEDS: ENOXAPARIN 40 MG/0.4 ML SQ SCH (21:37)
[2019-08-07 01:04] VITALS: BP 106/68
[2019-08-07] MEDS: OXYcodone IR 5MG TABLET PO PRN ×4 (03:28→21:06)
[2019-08-07] MEDS: OMEPRAZOLE 20 MG CAPSULE.DR PO SCH (05:38)
[2019-08-07 06:47] LABS: ALBUMIN 2.6 g/dL (3.4-5.0); ANION GAP 7 mmol/L (5-15); CALCIUM 8.9 mg/dL (8.5-10.1); CHLORIDE 104 mmol/L (98-107)
[2019-08-07 06:49] LABS: CREATININE 0.42 mg/dL (0.55-1.02)
[2019-08-07] MEDS ORDERED: MAGNESIUM SULFATE PMX 2GM/50ML 50 ML IV ONE ×2 (08:30→14:00)
[2019-08-07] MEDS: FLUTICASONE NASAL SPRAY 16GM NAS SCH (09:00)
[2019-08-07] MEDS: CHOLECALCIFEROL 400 UNITS TABLET PO SCH (09:21)
[2019-08-07] MEDS: GABAPENTIN 100 MG CAPSULE PO SCH ×2 (09:22→21:06)
[2019-08-07] MEDS: LACTOBACILLUS CHEW TABLET PO SCH ×3 (09:22→21:06)
[2019-08-07] MEDS: DOXEPIN 25 MG CAPSULE PO SCH ×3 (09:22→21:06)
[2019-08-07] MEDS: ASCORBIC ACID 500 MG TABLET PO SCH ×2 (09:23→16:43)
[2019-08-07] MEDS: MULTIVITS,STRESS FORMULA 1 TABLET PO SCH (09:23)
[2019-08-07] MEDS: MAGNESIUM OXIDE 400 MG TABLET PO SCH (09:23)
[2019-08-07] MEDS: CETIRIZINE 10 MG TABLET PO SCH (09:23)
[2019-08-07] MEDS: PAROXETINE 20 MG TABLET PO SCH (09:23)
[2019-08-07] MEDS: VANCOMYCIN 50 MG/ML ORAL SUSP PO SCH ×2 (09:25→21:07)
[2019-08-07] MEDS: SODIUM CHLORIDE FLUSH 10ML SYR IVF SCH ×2 (09:25→21:06)
[2019-08-07 12:11] VITALS: BP 108/74
[2019-08-07] MEDS: NICOTINE 14MG/24 HR PATCH.TD24 TD SCH (16:43)
[2019-08-07 18:57] VITALS: BP 100/70
[2019-08-07] MEDS: ENOXAPARIN 40 MG/0.4 ML SQ SCH (21:05)
[2019-08-08 00:04] VITALS: BP 115/76
[2019-08-08] MEDS: OXYcodone IR 5MG TABLET PO PRN ×3 (02:59→14:42)
[2019-08-08] MEDS: OMEPRAZOLE 20 MG CAPSULE.DR PO SCH (06:00)
[2019-08-08 06:47] LABS: BASOPHILS # (AUTO) 0.04 x10^3/uL (0-0.1); BASOPHILS % (AUTO) 0 % (0-1); EOSINOPHILS # (AUTO) 0.25 x10^3/uL (0-0.4); EOSINOPHILS % (AUTO) 3 % (1-7); LYMPHOCYTES # (AUTO) 2.55 x10^3/uL (1-3.4); LYMPHOCYTES % (AUTO) 29 % (22-44); MD NO; MEAN CORPUSCULAR HEMOGLOBIN 32.7 pg (27.0-34.8); MEAN CORPUSCULAR HGB CONC 32.9 g/dL (32.4-35.8); MEAN CORPUSCULAR VOLUME 99.6 fL (80-100); MEAN PLATELET VOLUME 7.4 fL (7.4-10.4); MONOCYTES # (AUTO) 0.61 x10^3/uL (0.2-0.8); MONOCYTES % (AUTO) 7 % (2-9); NEUTROPHILS # (AUTO) 5.48 x10^3/uL (1.8-6.8); NEUTROPHILS % (AUTO) 61 % (42-75); PLATELET COUNT 327 x10^3/uL (130-400); RED CELL DISTRIBUTION WIDTH 14.7 % (9.6-15.2)
[2019-08-08 06:57] LABS: ALBUMIN 2.7 g/dL (3.4-5.0); ANION GAP 8 mmol/L (5-15); CHLORIDE 105 mmol/L (98-107)
[2019-08-08 06:58] LABS: CREATININE 0.39 mg/dL (0.55-1.02)
[2019-08-08] MEDS ORDERED: MAGNESIUM SULFATE PMX 2GM/50ML 50 ML IV ONE (08:00)
[2019-08-08 08:42] VITALS: BP 126/84
[2019-08-08] MEDS: CHOLECALCIFEROL 400 UNITS TABLET PO SCH (09:24)
[2019-08-08] MEDS: LACTOBACILLUS CHEW TABLET PO SCH ×2 (09:24→16:42)
[2019-08-08] MEDS: DOXEPIN 25 MG CAPSULE PO SCH ×2 (09:24→16:42)
[2019-08-08] MEDS: MULTIVITS,STRESS FORMULA 1 TABLET PO SCH (09:24)
[2019-08-08] MEDS: CETIRIZINE 10 MG TABLET PO SCH (09:24)
[2019-08-08] MEDS: MAGNESIUM OXIDE 400 MG TABLET PO SCH (09:25)
[2019-08-08] MEDS: VANCOMYCIN 50 MG/ML ORAL SUSP PO SCH (09:25)
[2019-08-08] MEDS: GABAPENTIN 100 MG CAPSULE PO SCH (09:25)
[2019-08-08] MEDS: PAROXETINE 20 MG TABLET PO SCH (09:25)
[2019-08-08] MEDS: ASCORBIC ACID 500 MG TABLET PO SCH ×2 (09:25→16:42)
[2019-08-08] MEDS: SODIUM CHLORIDE FLUSH 10ML SYR IVF SCH (09:26)
[2019-08-08] MEDS: FLUTICASONE NASAL SPRAY 16GM NAS SCH (09:26)
[2019-08-08] MEDS ORDERED: CETI10TA18 PO (11:36)
[2019-08-08] MEDS ORDERED: ACID1TAB7 PO (11:37)
[2019-08-08] MEDS ORDERED: ASCO500T6 PO (11:38)
[2019-08-08] MEDS ORDERED: FLU VACC QS2019-20 36MOS UP/PF 0.5 ML IM-VACC ONE (13:30)
[2019-08-08 14:15] VITALS: BP 115/78
[2019-08-08] MEDS: NICOTINE 14MG/24 HR PATCH.TD24 TD SCH (16:30)
== END 2019-08-08 18:10 | disposition home or self-care (01) | DRG 4 ==
LOC: ED 21:39 → EDIP 22:51 → ICU 06-18 01:17 → 3N 06-20 14:02 → CCU 06-22 22:01 → ICU 07-25 18:08 → 3N 07-29 13:34 → 4WST 07-30 19:18
PROVIDERS: ADMIT Internal Medicine; ATTEND Family Medicine
PROC: 5A09357 Assistance with Respiratory Ventilation, Less than 24 Consecutive Hours, Continuous Positive Airway Pressure (ICD-10-PCS; 2019-06-23)
PROC: 02HV33Z Insertion of Infusion Device into Superior Vena Cava, Percutaneous Approach (ICD-10-PCS; principal; 2019-06-24)
PROC: 5A1955Z Respiratory Ventilation, Greater than 96 Consecutive Hours (ICD-10-PCS; 2019-06-24)
PROC: B548ZZA Ultrasonography of Superior Vena Cava, Guidance (ICD-10-PCS; 2019-06-24)
PROC: 0BH17EZ Insertion of Endotracheal Airway into Trachea, Via Natural or Artificial Opening (ICD-10-PCS; 2019-06-24)
PROC: 0T9B70Z Drainage of Bladder with Drainage Device, Via Natural or Artificial Opening (ICD-10-PCS; 2019-07-05)
PROC: 0B110F4 Bypass Trachea to Cutaneous with Tracheostomy Device, Open Approach (ICD-10-PCS; 2019-07-13)
DX: J69.0 Pneumonitis due to inhalation of food and vomit (principal); G93.41 Metabolic encephalopathy; I50.43 Acute on chronic combined systolic (congestive) and diastolic (congestive) heart failure; J96.21 Acute and chronic respiratory failure with hypoxia; A04.72 Enterocolitis due to Clostridium difficile, not specified as recurrent; K76.6 Portal hypertension; Z99.11 Dependence on respirator [ventilator] status; E87.0 Hyperosmolality and hypernatremia; E87.2 Acidosis; E87.1 Hypo-osmolality and hyponatremia; B37.49 Other urogenital candidiasis; I31.3 Pericardial effusion (noninflammatory); J44.1 Chronic obstructive pulmonary disease with (acute) exacerbation; R18.8 Other ascites; E83.39 Other disorders of phosphorus metabolism; I27.20 Pulmonary hypertension, unspecified; E83.42 Hypomagnesemia; E83.51 Hypocalcemia; D53.9 Nutritional anemia, unspecified; B96.1 Klebsiella pneumoniae [K. pneumoniae] as the cause of diseases classified elsewhere; B96.20 Unspecified Escherichia coli [E. coli] as the cause of diseases classified elsewhere; E86.0 Dehydration; E87.6 Hypokalemia; E87.8 Other disorders of electrolyte and fluid balance, not elsewhere classified; F17.210 Nicotine dependence, cigarettes, uncomplicated; F29 Unspecified psychosis not due to a substance or known physiological condition; F10.10 Alcohol abuse, uncomplicated; Y90.9 Presence of alcohol in blood, level not specified; F32.9 Major depressive disorder, single episode, unspecified; F41.1 Generalized anxiety disorder; G47.00 Insomnia, unspecified; G83.9 Paralytic syndrome, unspecified; I34.0 Nonrheumatic mitral (valve) insufficiency; I73.9 Peripheral vascular disease, unspecified; K21.9 Gastro-esophageal reflux disease without esophagitis; K29.70 Gastritis, unspecified, without bleeding; K31.89 Other diseases of stomach and duodenum; Z87.81 Personal history of (healed) traumatic fracture; Z88.1 Allergy status to other antibiotic agents; Z88.2 Allergy status to sulfonamides; D75.89 Other specified diseases of blood and blood-forming organs; F43.20 Adjustment disorder, unspecified; K04.7 Periapical abscess without sinus; R13.10 Dysphagia, unspecified; Z86.19 Personal history of other infectious and parasitic diseases
CPT/HCPCS: 36415; 36600; 74018; 74230; 82805; 84145; 96365; 96366; 99291; J3370; J3490; J7620; S0020; 36573; 71045; 71250; 74176; 76380; 80048; 80053; 80061; 80069; 80076; 81001; 81003; 82040; 82306; 82330; 82533; 82803; 82962; 83036; 83605; 83690; 83735; 83880; 83930; 83935; 83970; 84100; 84132; 84295; 84300; 84439; 84443; 84478; 84484; 85025; 85610; 85730; 87040; 87070; 87077; 87081; 87086; 87186; 87205; 87324; 90686; 93005; 93306; 93970; 94002; 94003; 94640; 94660; G0378; J0171; J0610; J0696; J1100; J1650; J1940; J2185; J2250; J2405; J2550; J2560; J2704; J2997; J3010; J3411; J3475; J3480; P9047; Q0162; C1751; C9113; J1120; J1205; J1450; J1815; J2060; J2270; J2930; J7030; J7040; J7050; Q0177